=== PATIENT | female | born 1955 | race Caucasian/White ===

== ENCOUNTER 2019-09-21 10:53 | Observation (INO) | payer OTHER, SELFPAY ==
[2019-09-21] VITALS (16 sets, daily range): BP systolic 95–233; BP diastolic 63–129; PULSE 42–52; RESP 8–27; TEMP 36.2–36.9; O2SAT 94–98; BMI 32.7
--- NOTE | 2019-09-21 11:09 | DI.RAD.S_ITS ---
PROCEDURE: XR CHEST 1V INDICATIONS: Possible stroke TECHNIQUE: One view of the chest was acquired. COMPARISON: None. FINDINGS: Surgical changes and devices: None. Lungs and pleura: Lungs are clear. No pleural effusions or pneumothorax. Mediastinum: Mediastinal contours appear normal. Heart size is normal. Bones and chest wall: No suspicious bony lesions. Overlying soft tissues appear unremarkable. IMPRESSION: No acute process. Dictated by: Dawn Pack M.D. on 09/21/2019 at 11:32 Approved by: Dawn Pack M.D. on 09/21/2019 at 11:32
--- NOTE | 2019-09-21 11:09 | DI.CT.S_ITS ---
PROCEDURE: CT HEAD/BRAIN WO CON INDICATIONS: stroke symptoms TECHNIQUE: Noncontrast 4.5 mm thick angled axial sections acquired from the foramen magnum to the vertex, with coronal and sagittal reformats. For radiation dose reduction, the following was used: automated exposure control, adjustment of mA and/or kV according to patient size. COMPARISON: None. FINDINGS: Image quality: Excellent. CSF spaces: Basal cisterns are patent. No extra-axial fluid collections. The ventricles are symmetric in size and shape. Brain: No intracranial bleeds or masses. There is cerebral volume loss for age, with resultant ventricular and sulcal prominence. There are periventricular and deep white matter chronic small vessel ischemic changes. There is intracranial internal carotid artery atherosclerosis. Skull and face: Calvarium and visualized facial bones appear intact, without suspicious lesions. Sinuses: Visualized sinuses and mastoids are clear. IMPRESSION: No acute intracranial disease process. Dictated by: Geraldine Tan MD, PhD on 09/21/2019 at 11:30 Approved by: Geraldine Tan MD, PhD on 09/21/2019 at 11:32
[2019-09-21 11:15] LABS: Add Manual Diff / Slide Review NO; Basophils Absolute Auto 100 /uL (0-100); Basophils Percent Auto 1.4 % (0-2); Eosinophils Absolute Auto 200 /uL (0-450); Eosinophils Percent Auto 4.1 % (2-4); Hematocrit 39.9 % (36-46); Hemoglobin 13.8 g/dL (12.0-16.0); Lymphocytes Absolute Auto 1200 /uL (1100-4500); Lymphocytes Percent Auto 27.7 % (25-40); Mean Corpuscular HGB Conc 34.7 % (30-36); Mean Corpuscular Hemoglobin 31.5 PG (26-34); Mean Corpuscular Volume 90.8 fL (80-100); Monocytes Absolute Auto 300 /uL (0-900); Monocytes Percent Auto 6.6 % (3-14); Neutrophils Absolute Auto 2700 /uL (1500-7000); Neutrophils Percent Auto 60.2 % (50-75); Platelet Count 205 X10^3/uL (150-400); Red Blood Cell Count 4.39 X10^6/uL (4.0-5.2); Red Cell Distribution Width 12.8 % (11.6-14.8); White Blood Cell Count 4.5 X10^3/uL (4.5-11.0)
--- NOTE | 2019-09-21 11:16 | ED.NEUROSD ---
HPI - Neuro Symptoms/Deficit General Chief Complaint: Neuro Symptoms/Deficit Stated Complaint: off balance/ slurred speech Time Seen by Provider: 09/21/19 11:07 Source: patient Mode of arrival: Wheelchair History of Present Illness HPI Narrative: CC: Slurring of her speech. HPI: The patient is a 64-year-old female who has a history of hypertension. She denies a history of diabetes mellitus previous stroke congestive heart failure myocardial infarction. She was last known to be well yesterday at approximately 2:00 p.m. when she develops slurred speech. The slurred speech persisted throughout the non evening and this morning that she came into the emergency department to be evaluated at this time. She denies any headache. She has had no fall or injury. She has had no change in vision or loss of vision. She denies any history of atrial fibrillation or being on an anticoagulant. She has had no valvular heart disease and no heart murmur. She states that yesterday her legs would not do what she wanted them. The symptoms were bilateral. There was no localizing symptoms to her arms or her legs will right or left side. The patient states that she periodically smokes cigarettes socially does not use marijuana but drinks alcohol. She denies any chest pain cough shortness of breath but has had mild irregular rapid heart rate in the form of palpitations without dizziness. She has had mild nausea but no vomiting diarrhea or abdominal pain. She has had no urinary symptoms. On arrival she had a slow heart rate and had systolic blood pressure in the 230 range. On Anticoagulants: No Related Data Home Medications Medication Instructions Recorded Confirmed CA PANTOTHENATE/FOLIC ACID/VIT 1 tab PO Q DAY #0 11/28/11 (MULTIVITAMIN) [TRI-IRON WITH FOLATE] Q DAY #0 11/28/11 metoprolol succinate 100 mg PO BID 09/21/19 09/21/19 Allergies Allergy/AdvReac Type Severity Reaction Status Date / Time No Known Drug Allergies Allergy Verified 09/21/19 16:36 Review of Systems Review of Systems Narrative: Review of systems were all negative except for those mentioned in the history of present illness. Patient History Medical History (Updated 09/21/19 @ 15:54 by Dakotah Corrales DO) Hypertension (Acute) Surgical History History of thyroidectomy History of tonsillectomy Family History Mother Post-menopausal Breast cancer Sister Melanoma Social History household members: other Smoking Status: Never smoker alcohol intake: current Smoking Status: Never smoker alcohol intake frequency: a few times a month Substance Use Type: does not use Exam Narrative Exam Narrative: PHYSICAL EXAM: CONSTITUTIONAL: Awake, Alert, Oriented, Coherent, Cooperative in NAD. Does not appear toxic or ill. The patient is keenly awake and alert answering questions. The patient has a mild slurred speech that she complains of. HEAD: AT/NC EENT: PERRL, FROM of eyes, no discharge, no nystagmus, visual dover are intact bilaterally NOSE:No epistaxis or nasal drainage MOUTH:Oral mucosa is moist and pink, posterior pharynx is without erythema or exudate. The patient has no asymmetry of her smile she is able to are puff of her cheeks symmetrically she has full range of motion of her tongue and she is able to wrinkle both sides of her forehead. NECK: Supple, no obvious JVD, Trachea is midline without stridor, no palpable LN. THORAX: No deformity, retractions, chest wall tenderness. LUNGS: Clear, symmetrical breath sounds without respiratory distress. HEART: Normal heart tones, regular rhythm and rate without murmur. ABDOMEN: Soft, non-tender, no guarding, rebound, rigidity or palpable mass. EXTREMITIES: No edema, deformity, tenderness or cyanosis. SKIN: No rash, bruising, petechiae or purpura. NEURO: Awake, alert, oriented, conversive, cranial nerves II-XII are symmetrical , moves all 4 extremities the patient has no drift of her arms or her legs. She has symmetrical sensation and symmetrical strength. MENTAL HEALTH: Does not appear anxious or depressed. Initial Vital Signs Initial Vital Signs: Vital Signs Temperature 98.2 F 09/21/19 11:03 Pulse Rate 45 L 09/21/19 11:03 Respiratory Rate 17 09/21/19 11:03 Blood Pressure 233/93 H 09/21/19 11:03 Pulse Oximetry 98 09/21/19 11:03 Scores NIH Stroke Scale Level of Conciousness: Alert, keenly responsive Ask month/age: Answers both questions correctly. Open/close eyes, close hand: Performs both tasks correctly Best gaze horizontal: Normal Visual dover: No visual loss Facial palsy: Normal symetrical movement Left arm drift: No drift for full 10 sec Right arm drift: No drift for full 10 sec Left leg drift: No drift for full 10 sec Right leg drift: No drift for full 10 sec Limb ataxia: Absent Sensory on face/arms/legs: Normal, no sensory loss Best language: Mild to moderate, slurs some words Dysarthria: Mild to mod,some slurring Extinction or inattention: No abnormality Total NIH Stroke scale score: 2 Course Course Course Narrative: 1237: Blood pressure has improved to 170 7/76 after the Apresoline. The patient's initial CT scan is negative for any acute pathology or evidence of a stroke. A CT angiogram has been ordered on the patient. The patient was reported to have been last known well to be 2:00 p.m. yesterday. The patient was thought to be having a hypertensive urgency but was being evaluated for possible stroke. The the CT a the patient's head and neck revealed: IMPRESSION: 1. No acute intracranial disease process. 2. No large vessel occlusion, hemodynamically significant vascular stenosis, vascular dissection or aneurysm. Any quantitative measurements of stenosis were performed using NASCET criteria. Dictated by: Geraldine Tan MD, PhD on 09/21/2019 at 14:05 Approved by: Geraldine Tan MD, PhD on 09/21/2019 at 14:15 The patient was admitted observation status to for further evaluation. Orders Ordered: ED Orders 09/21/19 12:36 CT angio head and neck Stat 09/21/19 13:34 MR stroke Urgent Acetaminophen (Tylenol) 650 mg PO Q6HR PRN PRN Reason: Fever/Mild Pain (1-3) Aspirin (Aspirin Ec) 81 mg PO DAILY [facility] Clopidogrel Bisulfate (Plavix) 75 mg PO DAILY [facility] Enoxaparin Sodium (Lovenox) 40 mg SUBCUT DAILY [facility] Metoprolol Succinate (Toprol Xl) 200 mg PO DAILY [facility]ANDA Metoprolol Succinate (Toprol Xl) 100 mg PO 2100 AMANDA Discontinued Medications Aspirin (Aspirin) 325 mg PO NOW ONE Stop: 09/21/19 15:41 Last Admin: 09/21/19 16:25 Dose: 325 mg Documented by: SPIKE Clopidogrel Bisulfate (Plavix) 300 mg PO NOW ONE Stop: 09/21/19 15:42 Last Admin: 09/21/19 16:25 Dose: 300 mg Documented by: SPIKE Hydralazine HCl (Apresoline) 10 mg IV NOW ONE Stop: 09/21/19 11:09 Last Admin: 09/21/19 11:27 Dose: 10 mg Documented by: BOO Lisinopril (Zestril) 10 mg PO NOW ONE Stop: 09/21/19 15:44 Last Admin: 09/21/19 19:28 Dose: Not Given Documented by: SPIKE Vital Signs Vital signs: Vital Signs - 8 hr 09/21/19 12:45 09/21/19 13:00 Pulse Rate 42 L 44 L Respiratory Rate 14 19 Blood Pressure 184/78 H 167/77 H Pulse Oximetry 97 97 MDM - Neuro Symptoms/Deficit Lab Data Result diagrams: 09/21/19 11:07 09/21/19 11:07 Labs: Lab Results 09/21/19 09/21/19 09/21/19 Range/Units 11:07 11:07 11:07 WBC 4.5 (4.5-11.0) X10^3/uL RBC 4.39 (4.0-5.2) X10^6/uL Hgb 13.8 (12.0-16.0) g/dL Hct 39.9 (36-46) % MCV 90.8 (80-100) fL MCH 31.5 (26-34) PG MCHC 34.7 (30-36) % RDW 12.8 (11.6-14.8) % Plt Count 205 (150-400) X10^3/uL Neut % (Auto) 60.2 (50-75) % Lymph % (Auto) 27.7 (25-40) % [place] % (Auto) 6.6 (3-14) % Eos % (Auto) 4.1 H (2-4) % Baso % (Auto) 1.4 (0-2) % Neut # (Auto) 2700 (4859-7794) /uL Lymph # (Auto) 1200 (3066-5719) /uL [place] # (Auto) 300 (0-900) /uL Eos # (Auto) 200 (0-450) /uL Baso # (Auto) 100 (0-100) /uL ESR (0-20) MM/HR PT 12.0 (10.1-12.7) SECONDS INR 1.0 (0.9-1.3) APTT 36 (26.4-36.2) SECONDS Sodium 140 (137-145) mmol/L Potassium 3.9 (3.4-5.1) mmol/L Chloride 106 (98-107) mmol/L Carbon Dioxide 27 (22-32) mmol/L BUN 14 (7-17) mg/dL Creatinine 0.60 (0.52-1.04) mg/dL Estimated GFR > 60.0 (>60) mL/min BUN/Creatinine Ratio 23.3 H (6-22) Glucose 134 H (80-110) mg/dL Calcium 9.7 (8.4-10.2) mg/dL Total Bilirubin 0.7 (0.2-1.3) mg/dL AST 24 (14-36) IU/L ALT 20 (<35) IU/L Alkaline Phosphatase 69 (38-126) U/L Total Creatine Kinase 45 (30-135) U/L CK-MB (CK-2) TNP CK-MB (CK-2) Rel Index TNP Troponin I < 0.012 (0.01-0.034) ng/mL Total Protein 7.5 (6.3-8.2) g/dL Albumin 4.6 (3.5-5.0) g/dL Globulin 2.9 (1.7-4.1) g/dL Albumin/Globulin Ratio 1.6 (1.0-2.8) 09/21/19 Range/Units 11:07 WBC (4.5-11.0) X10^3/uL RBC (4.0-5.2) X10^6/uL Hgb (12.0-16.0) g/dL Hct (36-46) % MCV (80-100) fL MCH (26-34) PG MCHC (30-36) % RDW (11.6-14.8) % Plt Count (150-400) X10^3/uL Neut % (Auto) (50-75) % Lymph % (Auto) (25-40) % [place] % (Auto) (3-14) % Eos % (Auto) (2-4) % Baso % (Auto) (0-2) % Neut # (Auto) (9234-0992) /uL Lymph # (Auto) (8422-3235) /uL [place] # (Auto) (0-900) /uL Eos # (Auto) (0-450) /uL Baso # (Auto) (0-100) /uL ESR 13 (0-20) MM/HR PT (10.1-12.7) SECONDS INR (0.9-1.3) APTT (26.4-36.2) SECONDS Sodium (137-145) mmol/L Potassium (3.4-5.1) mmol/L Chloride (98-107) mmol/L Carbon Dioxide (22-32) mmol/L BUN (7-17) mg/dL Creatinine (0.52-1.04) mg/dL Estimated GFR (>60) mL/min BUN/Creatinine Ratio (6-22) Glucose (80-110) mg/dL Calcium (8.4-10.2) mg/dL Total Bilirubin (0.2-1.3) mg/dL AST (14-36) IU/L ALT (<35) IU/L Alkaline Phosphatase (38-126) U/L Total Creatine Kinase (30-135) U/L CK-MB (CK-2) CK-MB (CK-2) Rel Index Troponin I (0.01-0.034) ng/mL Total Protein (6.3-8.2) g/dL Albumin (3.5-5.0) g/dL Globulin (1.7-4.1) g/dL Albumin/Globulin Ratio (1.0-2.8) Point of Care Testing Glucose POC 137 Urine Dip Bedside Urine Glucose Negative Bedside Urine Bilirubin - Negative Bedside Urine Ketone - Negative Urine Specific [place] 1.01 Bedside Urine Occult Blood - Negative Bedside Urine pH 7 Bedside Urine Protein - Negative Bedside Urine Urobilinogen - Negative Bedside Urine Nitrite - Negative Bedside Urine Leukocytes - Negative Esterase Discharge Plan Departure Patient Disposition: Admitted as Observation Clinical Impression: Slurred speech, Bradycardia, Hypertensive urgency Hypertension Qualifiers: Hypertension type: essential hypertension Qualified Code(s): I10 - Essential (primary) hypertension Discharge Date/Time: 09/21/19 13:56 Referrals: Xiomara Guzman [Primary Care Provider] - Admit Date/Time: 09/21/19 13:37 Admit Provider: Dakotah Corrales
[2019-09-21 11:24] LABS: PTT Partial Thromboplastin Tim 36 SECONDS (26.4-36.2)
[2019-09-21] MEDS: HYDRALAZINE 20 MG/ML VIAL 10 MG IV (11:27)
--- NOTE | 2019-09-21 11:27 | PC.NURSE ---
Son Chaudhari at bedside.
[2019-09-21 11:29] LABS: Alanine Aminotransferase 20 IU/L (<35); Albumin 4.6 g/dL (3.5-5.0); Albumin Globulin Ratio 1.6 (1.0-2.8); Alkaline Phosphatase 69 U/L (38-126); Aspartate Aminotransferase 24 IU/L (14-36); BUN Creatinine Ratio 23.3 (6-22); Bilirubin Total 0.7 mg/dL (0.2-1.3); Blood Urea Nitrogen 14 mg/dL (7-17); Calcium 9.7 mg/dL (8.4-10.2); Carbon Dioxide 27 mmol/L (22-32); Chloride 106 mmol/L (98-107); Creatine Kinase 45 U/L (30-135); Estimated Glomerular Filt Rate > 60.0 mL/min (>60); Globulin 2.9 g/dL (1.7-4.1); Glucose 134 mg/dL (80-110); HEMOLYSIS < 15 (0-50); Potassium 3.9 mmol/L (3.4-5.1); Sodium 140 mmol/L (137-145); Total Protein 7.5 g/dL (6.3-8.2)
[2019-09-21 11:40] LABS: Troponin I < 0.012 ng/mL (0.01-0.034)
[2019-09-21 11:53] LABS: Erythrocyte Sedimentation Rate 13 MM/HR (0-20)
--- NOTE | 2019-09-21 12:36 | DI.CT.S_ITS ---
PROCEDURE: CT ANGIO HEAD AND NECK INDICATIONS: evaluation of a stroke and slurred speech TECHNIQUE: Pre-contrast 4.5 mm thick sections acquired from the foramen magnum to the vertex. After the administration of intravenous contrast, 1 mm thick sections acquired from the aortic arch through the [place]. Post-contrast 4.5 mm thick sections then re-acquired from the foramen magnum to the vertex. 3-dimensional fnzbqhe-xfzxuqyxt-sbtityvlzp (MIP) and/or volume rendering reformats were acquired of the central intracranial vasculature and neck separately. COMPARISON: [facility], CT, CT HEAD/BRAIN WO CON, 09/21/2019, 11:05. FINDINGS: Image quality: Excellent. BRAIN: CSF spaces: Ventricles are normal in size and shape. Basal cisterns are patent. No extra-axial fluid collections. Brain: No midline shift. No intracranial bleeds or masses. Koch-white matter interface appears intact. Skull and face: Calvarium and facial bones appear intact, without suspicious lesions. Orbits appear normal. Sinuses: Mucosal thickening noted in the maxillary sinuses. The mastoids are clear. HEAD CT ANGIOGRAPHY: Anterior circulation: Intracranial internal carotid arteries are normal in flow. Calcified atherosclerotic plaque noted in the cavernous and clinoid segments of the internal carotid arteries bilaterally which causes mild stenosis. The flow within the paired anterior cerebral arteries is normal and symmetric. The flow within the middle cerebral arteries is normal and symmetric. The anterior communicating artery is seen. No aneurysms are seen. Posterior circulation: Visualized portions of the vertebral arteries demonstrate normal caliber, and join to form a normal appearing basilar artery. Flow within the posterior cerebral arteries is normal and symmetric. No aneurysms are seen. NECK CT ANGIOGRAPHY: Carotid system: The great vessels demonstrate a conventional anatomy as they arise from the aortic arch. The origins of the common carotid arteries appear patent. The common carotid arteries demonstrate normal caliber and courses. Right internal carotid artery is fully patent. Soft and calcified atherosclerotic plaque noted in the origin of the left internal carotid artery which causes less than 50% stenosis of the vessel. Posterior circulation: The origins of the vertebral arteries both appear widely patent. 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 Scattered atherosclerotic irregularity noted in the V1 segment of the right vertebral artery which causes mild multifocal stenosis. The more superior extracranial portions of both vertebral arteries also demonstrate normal courses and calibers. They join to form a normal appearing basilar artery. Soft tissues: Visualized neck soft tissues demonstrate no suspicious abnormalities. Left lobe of the thyroid gland is enlarged with heterogeneous enhancement concerning for multinodular goiter. Right lobe of the thyroid gland is absent. Bones: No suspicious bony lesions. Spine degenerative disc disease and facet arthropathy. Visualized cervical spine appears normally aligned. IMPRESSION: 1. No acute intracranial disease process. 2. No large vessel occlusion, hemodynamically significant vascular stenosis, vascular dissection or aneurysm. Any quantitative measurements of stenosis were performed using NASCET criteria. Dictated by: Geraldine Tan MD, PhD on 09/21/2019 at 14:05 Approved by: Geraldine Tan MD, PhD on 09/21/2019 at 14:15
--- NOTE | 2019-09-21 13:34 | DI.MRI.S_ITS ---
PROCEDURE: MR STROKE Pre- and post-contrast brain MRI, non-contrast brain MR angiogram, pre- and postcontrast neck MR angiogram INDICATIONS: slurred speech, eval for Stroke TECHNIQUE: Brain: Noncontrast axial T1 spin echo, axial T2 fast spin echo, sagittal and axial FLAIR, coronal T2 fast spin echo, axial gradient echo, axial diffusion and ADC through the brain. After the administration of contrast, axial 3D VIBE of the cranial vasculature and brain. Brain MRA: Non-contrast 3-D time of flight MR angiogram, with multiple dqibeha-qbmxmptvn-obbltgnute (MIP) reformats performed. Neck MRA: Axial and sagittal TruFISP through the neck. Coronal dynamic MR angiogram during administration of contrast in the arterial and venous phases, with 3-dimenstional nxndfsz-pscwvmoin-viszxcmdzd (MIP) reformats constructed from subtraction images. COMPARISON: [facility], CT, CT ANGIO HEAD AND NECK, 09/21/2019, 13:26. [facility], CT, CT HEAD/BRAIN WO CON, 09/21/2019, 11:05. FINDINGS: Image quality: Excellent. BRAIN: CSF spaces: Ventricles are normal in size and shape. Basal cisterns are patent. No extra-axial fluid collections. Brain: No intracranial bleeds or mass effects. Koch-white matter interface is normal. Diffusion weighted images show no acute ischemic insults. Brain parenchymal volume loss is seen. Chronic small vessel ischemic change is seen. Brainstem appears normal. Normal intravascular flow voids are present. No abnormal intracranial enhancement. Skull and face: Calvarial marrow signal is normal. Orbits appear normal. Sinuses: Sinuses and mastoids demonstrate no significant abnormality. The ostiomeatal complexes are constitutionally narrowed. BRAIN MR ANGIOGRAM: Anterior circulation: Intracranial internal carotid arteries are normal in size and enhancement. There is a diminutive right A1 segment, with a corresponding robust left A1 segment. This is considered to be a normal developmental variant of the [place] of [place], of typically no clinical consequence. The flow within the paired anterior cerebral arteries is otherwise normal and symmetric. The flow within the middle cerebral arteries is normal and symmetric. The anterior communicating artery is seen. No stenoses, occlusions, or aneurysms. Posterior circulation: The left vertebral artery is dominant to the right. Areas of approximately 50% narrowing can be seen involving the right V4 segment. There is a normal-appearing basilar artery. The flow within the posterior cerebral arteries is normal and symmetric. No stenoses, occlusions, or aneurysms. NECK MR ANGIOGRAM: Carotids: Great vessels demonstrate a conventional anatomy as they arise from the aortic arch. The origins of the common carotid arteries appear patent. The calibers and courses of both common carotid arteries are normal. The bifurcation regions demonstrate atherosclerotic irregularity. There is approximately 50% narrowing seen involving the left proximal internal carotid artery. No hemodynamically significant stenosis can be seen on the right. Posterior circulation: The origins of the vertebral arteries appear patent. More superior portions of both vertebral arteries demonstrate normal course and caliber, and join to form a normal appearing basilar artery. Miscellaneous: Subclavian arteries appear patent. Pre-contrast images through the neck show no soft tissue abnormalities. IMPRESSION: BRAIN MRI: No findings of acute or subacute infarction can be seen. Note is made of age-appropriate brain parenchymal volume loss and chronic small vessel ischemic changes. No masses or abnormal enhancement can be seen. BRAIN MR ANGIOGRAM: Areas of proximally 50% narrowing can be seen involving the right V4 segment. NECK MR ANGIOGRAM: There is approximately 50% narrowing seen involving the left proximal internal carotid artery. Dictated by: Too Villalobos M.D. on 09/21/2019 at 14:24 Approved by: Too Villalobos M.D. on 09/21/2019 at 14:30
[2019-09-21 15:08] LABS: COVID19 -Nasal RAPID Negative (Negative)
--- NOTE | 2019-09-21 15:39 | P.HP_ITS ---
History of Present Illness History of Present Illness Date Patient Seen: 09/21/19 Time Patient Seen: 15:39 Chief complaint: off balance/ slurred speech Narrative: Christy Jimenez is a 64 year old female with PMH of HTN who presented to the emergency room with onset of slurred speech and imbalance starting at approximately 2 pm yesterday. She states that yesterday at approximately 2:00 p.m. she noticed that she was having difficulty speaking, problems with word f indings as well as some slurring of her words. She also noticed that she was having a hard time walking. She denies any focal weakness or numbness, but stated that she did have some trouble with coordination and writing. She did not improved this morning this is when she decided to come to the emergency room. She also notes that her family thinks her speech pattern has changed. She thinks she may have been having palpitations yesterday, but cannot completely recall. She denies any chest pain, shortness of breath, headache, vision changes, abdominal pain, nausea, vomiting, diarrhea, lower extremity edema, orthopnea. In the emergency room, patient was initially hypertensive with a blood pressure of 233/93, she was also mildly bradycardic in the 40s. EKG showed a bradycardia with primary block without evidence of active ischemia. Laboratory findings were unremarkable with a negative troponin, and negative COVID-[address] was unremarkable. Head and neck CTA was also unremarkable. Before arrival to the floor MRI was ordered which did not show any evidence of active ischemia, but did show approximately 50% stenosis of her left internal carotid artery. Patient was admitted under observation status for likely TIA. Patient History Medical History (Updated 09/21/19 @ 15:54 by Dakotah Corrales DO) Hypertension (Acute) Surgical History History of thyroidectomy History of tonsillectomy Family & Social History Family History Mother Post-menopausal Breast cancer Sister Melanoma Social History: household members other Prior Living Arrangements House Safety & Behavioral: Feels Safe in Current Yes Environment Been Physically Hurt or No Threatened By a Person Suicidal Ideation Description None Suicide Plan Description No Plan Tobacco & Substance use: Smoking Status Never smoker alcohol intake current alcohol intake frequency a few times a month Substance Use Type does not use Meds Home Medications and Allergies Home Medications Medication Instructions Recorded Confirmed Type CA PANTOTHENATE/FOLIC ACID/VIT 1 tab PO Q DAY #0 11/28/11 History (MULTIVITAMIN) [TRI-IRON WITH FOLATE] Q DAY #0 11/28/11 History metoprolol succinate 100 mg PO BID 09/21/19 09/21/19 History Review of Systems Review of Systems Narrative: All other systems reviewed with the patient and are negative unless otherwise stated. Exam Vital Signs (past 8 hours): - 09/21/19 11:03 09/21/19 11:44 09/21/19 12:01 Temperature 98.2 F Pulse Rate 45 L 48 L 52 L Respiratory Rate 17 8 L 27 H Blood Pressure 233/93 H 195/79 H 177/76 H Pulse Oximetry 98 97 98 09/21/19 12:30 09/21/19 12:45 09/21/19 13:00 Temperature Pulse Rate 48 L 42 L 44 L Respiratory Rate 26 H 14 19 Blood Pressure 184/129 H 184/78 H 167/77 H Pulse Oximetry 98 97 97 09/21/19 14:10 Temperature 97.8 F Pulse Rate 50 L Respiratory Rate 18 Blood Pressure 185/78 H Pulse Oximetry 98 Oxygen Delivery Method Room Air Oxygen Flow Rate 0 Narrative Exam Narrative: GENERAL APPEARANCE: Well developed, well nourished, in no acute distress. SKIN: Inspection of the skin reveals no rashes, ulcerations or petechiae. HEENT: Normocephalic atraumatic, extraocular muscles are intact, oropharynx is clear and mucous membranes are moist, neck is supple without adenopathy NECK: Supple and symmetric. There was no thyroid enlargement, and no tenderness, or masses were felt. CHEST: Normal AP diameter and normal contour without any kyphoscoliosis. LUNGS: Auscultation of the lungs revealed no wheezes, rhonchi, or rales. CARDIOVASCULAR: There was a regular rate and rhythm with a 2/6 systolic murmur. Peripheral pulses were 2+ and symmetric. ABDOMEN: Soft and nontender with normal bowel sounds. No ascites was noted. MUSCULOSKELETAL: There was no tenderness or effusions noted. Muscle strength and tone were normal. EXTREMITIES: No cyanosis, clubbing or edema. NEUROLOGIC: Alert and oriented x 3. Normal affect. NIH stroke scale is documented below. There is very minor facial asymmetry on the right that resolves with smiling, unclear if this is chronic or acute. I notice no difficulties with speech on my examination. Objective ECG Impression: Bradycardia with primary block, rate 44. No evidence of active ischemia. Imaging Chest x-ray: Radiologist's impression: No acute process. MRI - head: Radiologist's impression: IMPRESSION: BRAIN MRI: No findings of acute or subacute infarction can be seen. Note is made of age-appropriate brain parenchymal volume loss and chronic small vessel ischemic changes. No masses or abnormal enhancement can be seen. BRAIN MR ANGIOGRAM: Areas of proximally 50% narrowing can be seen involving the right V4 segment. NECK MR ANGIOGRAM: There is approximately 50% narrowing seen involving the left proximal internal carotid artery. CT scan - head: Radiologist's impression: No acute process. Labs Result Diagrams: 09/21/19 11:07 09/21/19 11:07 Labs: Laboratory Results - last 24 hr 09/21/19 09/21/19 09/21/19 11:07 11:07 11:07 WBC 4.5 RBC 4.39 Hgb 13.8 Hct 39.9 MCV 90.8 MCH 31.5 MCHC 34.7 RDW 12.8 Plt Count 205 Neut % (Auto) 60.2 Lymph % (Auto) 27.7 [place] % (Auto) 6.6 Eos % (Auto) 4.1 H Baso % (Auto) 1.4 Neut # (Auto) 2700 Lymph # (Auto) 1200 [place] # (Auto) 300 Eos # (Auto) 200 Baso # (Auto) 100 ESR PT 12.0 INR 1.0 APTT 36 Sodium 140 Potassium 3.9 Chloride 106 Carbon Dioxide 27 BUN 14 Creatinine 0.60 Estimated GFR > 60.0 BUN/Creatinine Ratio 23.3 H Glucose 134 H Calcium 9.7 Total Bilirubin 0.7 AST 24 ALT 20 Alkaline Phosphatase 69 Total Creatine Kinase 45 CK-MB (CK-2) TNP CK-MB (CK-2) Rel Index TNP Troponin I < 0.012 Total Protein 7.5 Albumin 4.6 Globulin 2.9 Albumin/Globulin Ratio 1.6 COVID-19 PCR 09/21/19 09/21/19 11:07 14:00 WBC RBC Hgb Hct MCV MCH MCHC RDW Plt Count Neut % (Auto) Lymph % (Auto) [place] % (Auto) Eos % (Auto) Baso % (Auto) Neut # (Auto) Lymph # (Auto) [place] # (Auto) Eos # (Auto) Baso # (Auto) ESR 13 PT INR APTT Sodium Potassium Chloride Carbon Dioxide BUN Creatinine Estimated GFR BUN/Creatinine Ratio Glucose Calcium Total Bilirubin AST ALT Alkaline Phosphatase Total Creatine Kinase CK-MB (CK-2) CK-MB (CK-2) Rel Index Troponin I Total Protein Albumin Globulin Albumin/Globulin Ratio COVID-19 PCR Negative Assessment & Plan Assessment & Plan narrative: Christy Jimenez is a 64 year old female with PMH of HTN who presented to the emergency room with onset of slurred speech and imbalance starting at approximately 2 pm yesterday. She is admitted under observation status for likely TIA and hypertensive urgency. 1. Slurred speech, acute, reportedly present on admission -patient still continues to report difficulties with speech which are not her baseline. Family his also told her that her speech is not quite at baseline. I do not note any difficulties on my exam other than a few times she had some difficulty finding a complex word and possibly a very minor R sided facial asymmetry which may be chronic. She has no focal weakness or numbness on exam. -head CT, head and neck CT angiogram, an MR stroke were all negative for active ischemia or bleeding. MR stroke did note a mild stenosis of her left internal carotid at approximately 50%. Will further order TTE. -will continue telemetry, EKG with bradycardia with primary block, likely due to her home beta jack. -differential includes TIA or possibly hypertensive emergency given systolic blood pressure on admission of 233. MR stroke was negative for active ischemia as noted above. Patient was given 10 mg of hydralazine in the emergency room, she took her usual dose of metoprolol today which is 200 mg in the morning and 100 mg at night. Will continue this regimen and continue to monitor her blood pressures making necessary adjustments. -PT/OT/speech evaluations -risk stratify with TSH, A1c, and fasting lipid panel -will treat as a TIA with aspirin and Plavix. Given her ABCD2 score of 5 she will benefit from dual antiplatelet therapy for 21 days. Will likely need statin therapy as well pending lipid panel. 2. TIA, acute, present on admission -treatment as noted above with aspirin and Plavix -PT/OT/speech as noted above 3. Hypertensive urgency, acute, present on admission -patient improved with 10 mg of IV hydralazine and now has blood pressures in the 130s upon arrival to the floor. This may be in the setting of TIA or may be the primary cause of her symptoms, not completely clear. Will continue her home regimen at 200 mg of metoprolol in the morning, and 100 mg at night and continue to monitor and make additional changes. Will likely need to reduce her home dose of metoprolol given significant bradycardia in the 40s with primary block. Will add holding parameters to hold metoprolol if her heart rate is less than 50. Code: Full, surrogate decision maker is her son DVT: Ivynox daily Dispo: Admitted under observation status as her stay is not expected to exceed 2 midnights. COVID-19 COVID-19 status: Negative Scores ABCD2 Age >= 60 years: yes Initial BP. Either SBP >= 140 or DBP >= 90.: yes Clinical features of the TIA: speech disturbance without weakness Duration of symptoms: >= 60 minutes History of diabetes: no ABCD2 Score: 5 NIHSS Level of Conciousness: Alert, keenly responsive Ask month/age: Answers both questions correctly. Open/close eyes, close hand: Performs both tasks correctly Best gaze horizontal: Normal Visual dover: No visual loss Facial palsy: Minor paralysis, flattened nasolabial fold, asymmetry on smiling (very minor, unclear if chronic) Left arm drift: No drift for full 10 sec Right arm drift: No drift for full 10 sec Left leg drift: No drift for full 5 sec Right leg drift: No drift for full 5 sec Limb ataxia: Absent Sensory on face/arms/legs: Normal, no sensory loss Best language: No aphasia, normal Dysarthria: Normal Extinction or inattention: No abnormality Total NIH Stroke scale score: 1 Quality VTE Deep Vein Thrombosis/Pulmonary Embolism Present on Admission: No
[2019-09-21] MEDS: ASPIRIN 325 MG TABLET PO (16:25)
[2019-09-21] MEDS: CLOPIDOGREL 75 MG TABLET 300 MG PO (16:25)
--- NOTE | 2019-09-21 23:43 | PC.NURSE ---
LUIS MANUEL Aranda, notified of patient HR decreasing to the 30's with sleep/rest. Reviewed ordered medications, notified of HS dose of Metoprolol XL not given.
[2019-09-22] VITALS (7 sets, daily range): BP systolic 136–171; BP diastolic 61–76; PULSE 40–54; RESP 18; TEMP 36.4–36.6; O2SAT 97–98
[2019-09-22 05:22] LABS: Add Manual Diff / Slide Review NO; Basophils Absolute Auto 0 /uL (0-100); Basophils Percent Auto 0.9 % (0-2); Eosinophils Absolute Auto 200 /uL (0-450); Eosinophils Percent Auto 4.8 % (2-4); Hematocrit 40.2 % (36-46); Hemoglobin 14.1 g/dL (12.0-16.0); Lymphocytes Absolute Auto 1200 /uL (1100-4500); Lymphocytes Percent Auto 26.7 % (25-40); Mean Corpuscular HGB Conc 35.1 % (30-36); Mean Corpuscular Volume 91.2 fL (80-100); Monocytes Absolute Auto 400 /uL (0-900); Monocytes Percent Auto 9.1 % (3-14); Neutrophils Absolute Auto 2700 /uL (1500-7000); Neutrophils Percent Auto 58.5 % (50-75); Platelet Count 183 X10^3/uL (150-400); Red Cell Distribution Width 13.2 % (11.6-14.8); White Blood Cell Count 4.7 X10^3/uL (4.5-11.0)
[2019-09-22 05:26] LABS: Alanine Aminotransferase 18 IU/L (<35); Albumin 4.3 g/dL (3.5-5.0); Albumin Globulin Ratio 1.6 (1.0-2.8); Alkaline Phosphatase 68 U/L (38-126); Aspartate Aminotransferase 22 IU/L (14-36); BUN Creatinine Ratio 25.4 (6-22); Bilirubin Total 0.9 mg/dL (0.2-1.3); Bilirubin Unconjugated 0.9 mg/dL (0.0-1.1); Blood Urea Nitrogen 16 mg/dL (7-17); Calcium 9.4 mg/dL (8.4-10.2); Carbon Dioxide 27 mmol/L (22-32); Chloride 107 mmol/L (98-107); Cholesterol 229 mg/dL (140-199); Estimated Glomerular Filt Rate > 60.0 mL/min (>60); Globulin 2.7 g/dL (1.7-4.1); Glucose 99 mg/dL (80-110); HDL Cholesterol 45 mg/dL (40-60); HEMOLYSIS < 15 (0-50); LDL Cholesterol Calculated 153 mg/dL (<100); Magnesium 2.2 mg/dL (1.6-2.3); Potassium 4.8 mmol/L (3.4-5.1); Sodium 138 mmol/L (137-145); Triglycerides 156 mg/dL (35-150)
[2019-09-22 05:55] LABS: TSH w/ Reflex to FT4 3.47 uIU/mL (0.47-4.68)
[2019-09-22] MEDS: ASPIRIN EC 81 MG TABLET PO (08:41)
[2019-09-22] MEDS: CLOPIDOGREL 75 MG TABLET PO (08:41)
[2019-09-22] MEDS: ENOXAPARIN 40 MG/0.4 ML SYRINGE SUBCUT (08:41)
[2019-09-22] MEDS: lisinopriL 10 MG TABLET PO (08:41)
--- NOTE | 2019-09-22 08:47 | PC.NURSE ---
Addendum entered by Bertha Byrne R.N. 09/22/19 15:47: At 1530, called to make follow up appt for pt at her PCP. PCP office states pt's PCP is out of country until October 01. The other covering physicians in the office do no take pt's [employer] insurance. Therefore the follow up would be out of pocket as states by PCP office. PCP office gave suggestions to be seen at [facility] or [facility]. Per Dr. Corrales, pt needs to be seen ideally by end of week. Evening float RN Enedina aware. Addendum entered by Bertha Byrne R.N. 09/22/19 14:36: Spoke with Dr. Corrales around 1330 regarding pt's plan for discharge. F/U at PCP YAZAN, outpatient ECHO. Walker for home use per PT recommendations. Per Dr. corrales pt is ready for discharge today. Pt states her son's girlfriend will be able to pick her up for discharge, they will be coming from [place]. Addendum entered by Bertha Byrne R.N. 09/22/19 11:52: Per Dr. Corrales, no blood glucose finger stick checks to be continued. Original Note: Day Shift- Spoke with Dr. Corrales at 0835, Hold Metoprolol for HR below 50, okay to give Scheduled Lisinopril for 171/[address] Corrales also aware of 0730 Telemetry reading by ICU, RN of HR 37 with first degree AVB, SB, PAC's. Will continue to monitor. Pt A&OX4, states her slurred speech is about the same as yesterday. No other voiced concern. Pt updated with plan for needing ECHO, PT, OT, and Speech today. Bed Alarm on, call light within reach.
[2019-09-22] MEDS: SODIUM CHLORIDE 0.9% FLUSH 10 ML IV (10:27)
[2019-09-22] MEDS: METOPROLOL ER 50 MG TABLET PO (10:30)
--- NOTE | 2019-09-22 10:39 | OT.IP.EVAL ---
Past Medical History (Last Updated 09/21/19 @ 15:54 by Dakotah Corrales DO) Hypertension (Acute) Surgical History (Last Reviewed 09/21/19 @ 11:17 by Salas Blood MD) History of thyroidectomy History of tonsillectomy Occupational Therapy Inpatient Evaluation/Re-Eval M1 PT/OT-IP Prior Functional Status Start: 09/22/19 12:20 Freq: NEEDED Status: Active Protocol: Document 09/22/19 09:25 [facility] (Rec: 09/22/19 12:39 [facility] [id number]) Medical Review Prior Functional Status Medical History Reviewed Yes Communication WNL. No known baseline deficits Mobility and Gait Pt is an independent community ambulator. 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 Social History Household Members other Living Arrangements House Number of Floors (Floors) One Floor Number of Stairs To Enter/Railing? 1 SINCERE through the garage Home Environment Standard Height Toilet,Walk in Shower,Tub/Shower,Built-In Shower Seat Employment Status Fire Protection Specialist Employed Additional Social History Comment Pt lives in [place] and has a roommate who is active duty [employer]. 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 M2 OT-IP Current Condition Start: 09/22/19 12:20 Freq: Status: Active Protocol: Document 09/22/19 09:25 [facility] (Rec: 09/22/19 12:39 [facility] [id number]) Occupational Therapy Current Condition Current Condition Evaluation Date 09/22/19 Treatment Diagnosis TIA, decrease mobility Diagnosis Onset Date 09/21/19 M3 OT- IP Subjective and Pain Start: 09/22/19 12:20 Freq: Status: Active Protocol: Document 09/22/19 09:25 [facility] (Rec: 09/22/19 12:39 [facility] [id number]) OT- Subjective Occupational Therapy Visit Type Type Initial Evaluation Visit Start Time 09:25 Visit Stop Time 10:39 Total Visit Minutes 44 Notes Pt seen for a split session from [id number], and [id number]. Occupational Therapy Visit Comments Patient Comments Pt agreeable to do OT eval and wanting to get up to brush her teeth. Patient/Caregiver Goals To go home. OT Pain Assessment Pain When Pain Assessed At Rest Pain Present Pain Present Denied Pain M4 OT- IP ADL's Start: 09/22/19 12:20 Freq: Status: Active Protocol: Document 09/22/19 09:25 [facility] (Rec: 09/22/19 12:39 [facility] [id number]) OT [id number] Comments OT Self-Feeding Comments NOt at meal time. OT ADL-Grooming General Evaluation Grooming Ability Standby Assistance Comments OT Grooming Comments Set-up assist. OT ADL-Oral Care General Eval Oral Care Ability Independent OT ADL-Dressing General Eval Lower Body Dressing Ability Standby Assistance Comments OT Dressing Comments Pt able to alvarado/doff socks however favors use of left hand more than right hand for the task. Pt is right hand dominate. OT ADL-Toileting Comments OT Toileting Comments Pt not having to use the toilet. OT ADL-Bathing Comments OT Bathing Comments Pt going to get an ECHO, suggested best to have a shower chair at this time due to decreased balance. M5 OT- IP IADL's Start: 09/22/19 12:20 Freq: Status: Active Protocol: Document 09/22/19 09:25 [facility] (Rec: 09/22/19 12:39 [facility] [id number]) OT-Instrumental Activities of Daily Living Home Safety Awareness Awareness of Need for Assistance at Home Good Awareness Ability to Problem Solve Emergency Able to Problem Solve Situations Medication Management Medication Management No Deficits Identified Money Management Money Management No Deficits Identified Meal Preparation Meal Preparation Comments Pt may need assist due to her decreased balance. Intelligence Agent Intelligence Agent Comments Pt may need assist due to her decreased balance. Driving Driving Comments Suggested may be best to have someone drive her initially until she is feeling better. Pt appears to be thinking well however questionable how her reaction time would be for her right foot for braking a care due to weakness. M6 OT- IP Functional Cognition Start: 09/22/19 12:20 Freq: Status: Active Protocol: Document 09/22/19 09:25 [facility] (Rec: 09/22/19 12:39 [facility] [id number]) Cognitive Factors Limiting Selfcare Function Cognitive Ability Level of Alertness Alert Patient Orientation Name,Age,Birthday,Month,Date, Year,Day of Week,Place, Situation Attention Span Ability Capable of Focused Attention, Capable of Sustained Attention Ability to Follow Commands Able to Follow Multi-Step Commands Memory Description No Deficits Noted Safety Awareness No Deficits Noted Problem Solving Ability No deficits Noted Executive Function Ability No Deficits Noted Cognitive Comments Cognitive Assessment Comments No deficits noted, slight dysarthria noted. Pt scored 82 seconds on [place] Making Part B which implies normal but not perfect score. [place] Making B assesses pt's speed of processing, mental flexibility, visual attention, task switching, and executive thinking. OT- Vision and Hearing OT- Hearing Assessment OT- Hearing Assessment WFL OT- Vision Assessment Visual Acuity WFL Occular Pursuits WFL Visual Convergence WFL Visual Cyr WFL Diplopia Absent M7 OT- IP Mobility and Balance Start: 09/22/19 12:20 Freq: Status: Active Protocol: Document 09/22/19 09:25 [facility] (Rec: 09/22/19 12:39 [facility] [id number]) OT- Bed Mobility Assessment Rolling Type of Rolling Roll to Left Supine to Sit Supine to Sit Assist Standby Assistance Sit to Supine Sit to Supine Assist Standby Assistance Scooting Scooting to Edge of Bed Standby Assistance OT-Transfer Assessment Sit to and From Stand Sit to and from Stand Standby Assistance Transfers Transfer Ability Standby Assistance,Minimal Assistance Technique Transfer Destination Bed Transfer Technique Stand Step Pivot Devices Transfer Assistive Devices Bed Rail,Gait Belt,Front Wheeled Walker Comments Mobility Comments Increased time for pt to get herself to the edge of the bed . If not using the FWW , needing DARCI-MODA for transfer as leans the the right and unsteady on her feet. When using the FWW, pt is SBA. OT- Balance Assessment Sitting Balance and Reactions Static Sitting Balance Ability Normal Dynamic Sitting Balance Ability Good Standing Balance and Reactions Static Standing Balance Ability Fair Dynamic Standing Balance Ability Poor M8 OT- IP Objective Assessments Start: 09/22/19 12:20 Freq: Status: Active Protocol: Document 09/22/19 09:25 [facility] (Rec: 09/22/19 12:39 [facility] [id number]) OT Gross Range of Motion Upper Extremity Range of Motion Assessment Within Functional Limits OT Strength Comments Strength Comments LUE 4/5 throughout, RUE 4-/5 to 4/5 OT- Coordination Assessment Upper Extremity Finger to Nose Test Within Functional Limits Comments Coordination Comments Pt has difficulty with in hand manipulation of itme in right hand. 9 Hole Peg Hand Test right hand 42 second, norm at 50% in 22.5 seconds for her age. Left hand 32 seconds and 25 sec. is the norm at 50% for her age. OT-Muscle Tone Assessment Muscle Tone WNL Yes OT Sensation Assessment Location Right Hand Light Touch Intact/Normal Deep Pressure Intact/Normal Proprioception (Position) Intact/Normal Stereognosis Intact/Normal Sensation Description Tingling Comments Summary Comments Pt intact but pt noted feels off with right hand. M9 OT- IP Assessment and Plan Start: 09/22/19 12:20 Freq: Status: Active Protocol: Document 09/22/19 09:25 [facility] (Rec: 09/22/19 12:39 [facility] [id number]) OT Summary Assessment and Plan Potential Rehabilitation Potential Excellent Analytic Complexity at Evaluation Low Summary OT Impairments Coordination,Functional Mobility,Grooming,Dressing, Toileting,Bathing,Toilet Transfers,Shower Transfers, Activity Tolerance Progress Towards Goals Progressing Toward Goals Assessment Summary Pt low complexity s/p TIA and negative for MRI but did not 50% narrowing can be seen for rigth V4 segment and for left proximal internal carotid artery. Pt main barriers are decreased balance, smoothness and speed of coordination right hand greater than left, and would benefit from outpt PT and OT. Goals Self-Feeding Goal Independent Grooming Goal Independent Dressing Goal Independent Toileting Goal Independent Bathing Goal Independent Toilet Transfer Goal Independent Shower Transfer Goal Independent Days to Meet Goals 2 Frequency of Treatment Frequency Of Treatment Once a Day Treatment Plan OT Treatment Plan ADL Training,Functional Mobility,Patient/Family Education,Discharge Planning Discharge Recommendations OT Discharge Recommendations Home with Assistance, Outpatient PT Other Discharge Recommendations Outpt OT for coordination. Home Equipment Needs Shower chair, FWW Transportation Needs at Discharge Private Vehicle
--- NOTE | 2019-09-22 10:45 | CM.DANOTE ---
Addendum entered by Yessy Hinojosa LPN 09/22/19 11:32: PT and OT noted concerns re pt's ongoing symptoms. They will speak with Dr. Corrales re their findings. PT Manjula is recommending a FWW at d/c and order for same is obtained. ? Out/patient therapy? Will be following. DC order remains in place but is not finalized at this time. Original Note: Discharge Planning/Care Management DDP: assessment: case received, EMR reviewed and met with pt during Team Bedside Rounds. Introduced self and role. Pt is a 64 year old female who admitted to care of hospitalist team yesterday afternoon. PCP: Xiomara Guzman Payer: [facility]. Dr. Corrales explained to pt and team that pt was admitted with ? TIA/CVA and PT/OT/EHS MANAGER are ordered. At time of rounds EHS MANAGER was just completing her assessment and did state that pt's slurred speach was still evident but that she was cleared from EHS MANAGER for the home setting. PT/OT notes are not yet available. ECHO is planned but Dr. Corrales stated that this would be done as an out-patient. Pt is aware that she will likely be ok for home later today. Dr. Corrales expects he will have more information by this afternoon. Pt says she is pleased that this is likely. She will look at someone to pick her up. Says she has 2 adult sons in [place] and will have one of them or perhaps her roommate pick her up. P: home when stable for same: expected later today. AMPARO Stone stated she alert this d/c search planner if pt was unable to find a ride to her [place] home. CM Discharge Assessment Start: 09/22/19 10:43 Freq: Status: Active Protocol: Document 09/22/19 10:43 ITV (Rec: 09/22/19 10:44 ITV [id number]) Discharge Planning Assessment Advance Directives? No History Provided By Patient,Medical Record Has Patient been admitted in last 30 No days? Prior Living Arrangements House Household Members other Comment lives with roommate. Independent with ADL's Yes Is patient alert and oriented? Yes Review Status In Process
--- NOTE | 2019-09-22 11:08 | ST.IPSLE ---
Visit Care Team Role Provider Type Xiomara Guzman Primary Care Provider Non-Staff Specialty: Medical Address: [facility] [address], [address], [place], [address] Email: LUIS MANUEL Dent Family Provider Advanced Net Making Supervisor Specialty: Family Practice Address: [address] [place] [address], [place], [address] Email: [email or web address] Salas Blood MD Emergency Provider Physician Specialty: Emergency Medicine Address: [address] [place] [address], [address] Email: Dakotah Corrales DO Admit Provider Physician Attending Provider Specialty: Internal Medicine Address: [address] [place] [address], [facility] Email: [email or web address] Past Medical History (Last Updated 09/21/19 @ 15:54 by Dakotah Corrales DO) Hypertension (Acute Medical) Speech-Language Pathology Speech/Language Eval WREATH MAKER Language Evaluation Start: 09/22/19 10:26 Freq: Status: Active Protocol: Document 09/22/19 10:27 LL (Rec: 09/22/19 11:06 LL [id number]) Language Evaluation Session Time Visit Start Time 09:35 Visit Stop Time 10:05 Total Visit Minutes 30 Referral Referring Physician Dakotah Corrales DO Reason for Referral Stroke Protocol - Possible TIA Language Evaluation Assessment Type Speech-Language Past Medical History Patient History Per H&P, Christy Jimenez is a 64 year old female with PMH of HTN who presented to the emergency room with onset of slurred speech and imbalance starting at approximately 2 pm yesterday. She states that yesterday at approximately 2: 00 p.m. she noticed that she was having difficulty speaking , problems with word findings as well as some slurring of her words. She also noticed that she was having a hard time walking. She denies any focal weakness or numbness, but stated that she did have some trouble with coordination and writing. She did not improved this morning this is when she decided to come to the emergency room. She also notes that her family thinks her speech pattern has changed . She thinks she may have been having palpitations yesterday, but cannot completely recall. She denies any chest pain, shortness of breath, headache, vision changes, abdominal pain, nausea, vomiting, diarrhea, lower extremity edema, orthopnea. Medical History List: - Hypertension (Acute) Hearing Hearing Level Normal Vision Vision Status Impaired Comments Wears prescription glasses - Vision WNL when wearing glasses [place] Language Language(s) Spoken in the Home [place] Educational Status Education Level Highest level of education obtained : High School Occupational Status Occupation Status health workers Previous Therapy Previous Speech-Language Therapy No Oral Motor Examination Oral Motor Exam Completed Yes: WFL Results Oral Peripheral Exam: Normal oral cavity size and symmetrical structures WFL of strength, coordination, and ROM. Patient has complete natural dentition in adequate condition. Subjective Subjective The pt was sitting up in bed, awake, alert, and oriented x 4 . Pt agreeable to participate in comprehensive speech- language assessment. Pt reported slurred speech since incident and hospitalization. Pt stated my tongue feels thick making it hard to speak clearly. Pt denied any cognitive and receptive language difficulties. - Informal Assessment Receptive Language Normal Yes Expressive Language Normal No: mildly impaired in spontaneous conversation Articulation Normal No: mildly slurred speech, imprecise articulation, and blended word boundaries Cognition Normal Yes Assessment Findings The pt presents with mildly impaired expressive language skills and speech articulation , characterized by slurred speech, reduced speech intelligibility during spontaneous conversation, imprecise articulation, and occasional blended word boundaries. - Receptive Language Yes/No Questions Skill Level WFL Following Directions - Verbal Skill Level WFL Defining Words Skill Level WFL Auditory Comprehension Skill Level WFL Reading Comprehension Skill Level WFL Receptive Language Comments Receptive Language Comments Receptive language skills appeared WFL. Pt performed WFL with tasks of confrontation naming, picture and R/L body part identification, reading words/phrase/sentences, answering simple and complex yes/no questions, automatic speech tasks, and phrase completion. - Expressive Language Automatic Speech Skill Level Mildly Impaired Sentence Closure Skill Level WFL Object Naming Skill Level WFL Stating Functions Skill Level WFL Oral Expression Skill Level Mildly Impaired Expressive Language Comments Expressive Language Comments The pt presents with mildly impaired expressive language skills and speech articulation , characterized by slurred speech, reduced speech intelligibility during spontaneous conversation, imprecise articulation, and occasional blended word boundaries. - Findings Language Findings Pt presents with mild dysarthria likely due to possible TIA. Receptive language skills appeared WFL. WREATH MAKER reviewed evaluation results with patient and recommended that patient receive outpatient speech services if mild dysarthria does not resolve. WREATH MAKER provided patient with several handouts explaining dysarthria in greater detail and compensatory speaking strategies to utilize to increase overall speech intelligibility. WREATH MAKER reviewed each handout and placed handouts in pt's blue folder. Recommendations Recommendations Pt was educated of results. Recommend outpatient speech services if mild dysarthria does not resolve. Pt verbalized understanding and agreement with plan. *Discharge placement: Home. * Outpatient services if mild dysarthria does not resolve.
--- NOTE | 2019-09-22 11:53 | PT.IIE ---
Surgical History (Last Reviewed 09/21/19 @ 11:17 by Salas Blood MD) History of thyroidectomy History of tonsillectomy Medical History (Last Updated 09/21/19 @ 15:54 by Dakotah Corrales DO) Hypertension (Acute) Physical Therapy Inpatient Evaluation/Re-Eval M1 PT/OT-IP Prior Functional Status Start: 09/22/19 08:38 Freq: NEEDED Status: Active Protocol: Document 09/22/19 11:18 AW (Rec: 09/22/19 11:53 AW [id number]) Medical Review Prior Functional Status Medical History Reviewed Yes Communication WNL. No known baseline deficits Mobility and Gait Pt is an independent community ambulator. Activities of Daily Living and IADL's Independent Social History Household Members other Living Arrangements House Number of Floors (Floors) One Floor Number of Stairs To Enter/Railing? 1 SINCERE through the garage Home Environment Standard Height Toilet,Walk in Shower,Tub/Shower,Built-In Shower Seat Employment Status Coordinator Of Health Services Employed Additional Social History Comment Pt lives in [place] and has a roommate who is active duty [employer]. 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 M2 PT-IP Current Condition Start: 09/22/19 08:38 Freq: NEEDED Status: Active Protocol: Document 09/22/19 11:18 AW (Rec: 09/22/19 11:53 AW [id number]) Physical Therapy Current Condition Current Condition Evaluation Date 09/22/19 Treatment Diagnosis TIA; impaired balance; difficulty in walking Onset Date 09/20/19 M3 PT-IP Subjective Start: 09/22/19 08:38 Freq: NEEDED Status: Active Protocol: Document 09/22/19 11:18 AW (Rec: 09/22/19 11:53 AW [id number]) Subjective Physical Therapy Visit Type Type Initial Evaluation Visit Start Time 10:37 Visit Stop Time 11:07 Total Visit Minutes 30 Notes MRI was negative for acute process. MRA found: Areas of proximally 50% narrowing can be seen involving the right V4 segment. There is approximately 50% narrowing seen involving the left proximal internal carotid artery. Physical Therapy Visit Comments Patient Comments I feel off with my balance. Therapy Pain Assessment Pain When Pain Assessed During Mobility Pain Present Pain Present Denied Pain M4 PT-IP Mobility and Gait Start: 09/22/19 08:38 Freq: NEEDED Status: Active Protocol: Document 09/22/19 11:18 AW (Rec: 09/22/19 11:53 AW [id number]) PT-Bed Mobility Assessment Sit to Supine Sit to Supine Independent Scooting Scooting to Edge of Bed Independent PT-Transfer Assessment Sit to and From Stand Sit to and from Stand Standby Assistance,Use of Upper Extremities Equipment Transfer Assistive Device Gait Belt,Front Wheeled Walker Orthotic/Prosthetic Devices or Brace: No Transfers Transfer Destination Bed,Chair Transfer Technique pt ambulated with FWW Transfer Ability Level of Assist Standby Assistance Comments Mobility Comments Pt was sitting EOB upon PT arrival. She was able to stand from the bed in its lowest position SBA but was unsteady until able to make contact with the FWW handles. Pt was able to recover independently without PT assist. She ambulated in the halls 75 feet with FWW SBA, presenting with ataxic gait, impaired motor control. She ambulated 15 feet without AD, requiring CGA at all times due to unsteadiness. Pt returned to the room and transferred to the chair with FWW SBA where she was positioned with call light and all needs in reach. Gait Assessment Gait Gait Assistance Required: Standby Assistance,Contact Guard Assist Distance (Feet) 75 Assistive Devices Assistive Device None,Gait Belt,Front Wheeled Walker Gait Deviations General Gait Pattern Ataxic,Decreased Stride Length ,Decreased Feet Clearance, Flexed Trunk,Lateral Trunk Lean,Wide Based Gait Factors Limiting Gait Function Factors Limiting Gait Function Decreased Activity Tolerance, Decreased Sensation,Decreased Strength,Incoordination,Poor Balance Comments Gait Comments Pt presents with ataxic gait, barely clearing the floor with bilateral feet. Feet did not pass one another in gait using FWW. Pt reports having difficulty advancing her legs with right more affected than left. Pt was safe with FWW but definitely needed it for safe ambulation. Stair Climbing Assessment Comments Stair Climbing Comments Not assessed. PT-Balance Assessment Sitting Balance and Reactions Static Sitting Balance Ability Good Dynamic Sitting Balance Ability Good Standing Balance and Reactions Static Standing Balance Ability Fair Dynamic Standing Balance Ability Poor Device Used FWW Balance Tests Paris Balance Test Score 34/56 Query Text:Score Comments Other Balance Tests/Deviations/Treatment Pt unable to turn 360 degrees : either direction without assist. Required assist to attain tandem stance position. M5 PT-IP Objective Assessments Start: 09/22/19 08:38 Freq: NEEDED Status: Active Protocol: Document 09/22/19 11:18 AW (Rec: 09/22/19 11:53 AW [id number]) Orientation Orientation/Cognition Level of Alertness Alert Orientation Name,Day of Week,Place, Situation Language Function Ability Expressive Aphasia,Word Finding Difficulties Safety Awareness Understands Safety Issues Memory Description No Deficits Noted Comments Pt having difficulty during conversation with simple word finding ~5% of the time. Gross Range of Motion Lower Extremity ROM Assessment Within Functional Limits Strength Lower Extremity Strength Assessment Right Impaired Hip 4/5 Knee 4/5 Ankle 4/5 Comments Strength Comments LLE grossly 4+/5. Unilateral impairment is subtle but detectable throughout RLE. Coordination Assessment Gross Coordination Gross Coordination Impaired Assessment Finger to Nose Test Minimal Impairment Heel on Street Test Minimal Impairment Coordination Comments greater impairment RLE vs LLE Sensation Assessment Sensation Gross Sensation Right UE Impaired Light Touch Impaired Sensation Description Tingling Comments Sensation Comments Pt reports tingling right hand Muscle Tone Muscle Tone WNL No Comments Muscle Tone Comments 4 beats clonus right ankle. No clonus left ankle. M6 PT-IP Treatment Start: 09/22/19 08:38 Freq: NEEDED Status: Active Protocol: Document 09/22/19 11:18 AW (Rec: 09/22/19 11:53 AW [id number]) Physical Therapy Treatment Education Education Provided Safety Other Treatments Other Treatment Performed Provided education on role of PT, plan of care, need for assistive device. M7 PT-IP Assessment and Plan Start: 09/22/19 08:38 Freq: NEEDED Status: Active Protocol: Document 09/22/19 11:18 AW (Rec: 09/22/19 11:53 AW [id number]) PT Summary Assessment and Plan Potential Rehabilitation Potential Good Status of Condition at Evaluation Evolving Summary Impairments Strength,Balance,Coordination, Sensation,Tone,Transfers,Gait Assessment Summary Duc is a 64 yo woman seen for PT evaluation after being admitted with slurred speech and impaired balance. She is independent in all regards at baseline. She works in [employer] services at the [employer]. On evaluation , pt presents with subtle right LE weakness, sensation disturbance in the right hand, and significantly impaired balance (scores 34/56 on Paris Balance Scale). Four beats clonus noted at right ankle. With no assistive device, pt required CGA at all times due to unsteady, ataxic gait. Pt has improved control of LEs with use of FWW, requiring decreased assist. Pt will be safe to discharge to home environment with FWW and referral to outpatient PT for aggressive plan of care to address unilateral strength and balance impairments. Goals Bed Mobility Goal Independent Transfer Goal Independent,Front Wheeled Walker Gait Goal Standby Assistance,Front Wheel Walker Gait Distance 200 Other Goals - pt will score 40/50 on Paris Balance to demonstrate improved independence with gait Days to Meet Goals 10 Frequency of Treatment Frequency Of Treatment Once a Day Treatment Plan Physical Therapy Treatment Plan Bed Mobility Training,Transfer Training,Gait Training, Therapeutic Exercise,Balance Retraining,Discharge Planning, Hot or Cold Pack,Neuromuscular Re-ed,Coordination Retraining Other Recommendations and Next Treatment gait training; balance Focus activities Discharge Recommendations PT Discharge Recommendations Home with Assistance, Outpatient PT Equipment Needed for Home Before FWW Discharge Transportation Needs at Discharge Private Vehicle
--- NOTE | 2019-09-22 12:15 | PM.DS.1 ---
History of Present Illness History of Present Illness Date Patient Seen: 09/22/19 Time Patient Seen: 12:16 Chief complaint: off balance/ slurred speech Narrative: Christy Jimenez is a 64 year old female with PMH of HTN who presented to the emergency room with onset of slurred speech and imbalance starting at approximately 2 pm yesterday. She states that yesterday at approximately 2:00 p.m. she noticed that she was having difficulty speaking, problems with word findings as well as some slurring of her words. She also noticed that she was having a hard time walking. She denies any focal weakness or numbness, but stated that she did have some trouble with coordination and writing. She did not improved this morning this is when she decided to come to the emergency room. She also notes that her family thinks her speech pattern has changed. She thinks she may have been having palpitations yesterday, but cannot completely recall. She denies any chest pain, shortness of breath, headache, vision changes, abdominal pain, nausea, vomiting, diarrhea, lower extremity edema, orthopnea. In the emergency room, patient was initially hypertensive with a blood pressure of 233/93, she was also mildly bradycardic in the 40s. EKG showed a bradycardia with primary block without evidence of active ischemia. Laboratory findings were unremarkable with a negative troponin, and negative COVID-[address] was unremarkable. Head and neck CTA was also unremarkable. Before arrival to the floor MRI was ordered which did not show any evidence of active ischemia, but did show approximately 50% stenosis of her left internal carotid artery. Patient was admitted under observation status for likely TIA. Discharge Providers Provider Date of admission: 09/21/19 13:37 Discharge Date: 09/22/19 Primary care physician: Xiomara Parson Consults: 09/21/19 16:04 Consult to Occupational Therapy Evaluate & Treat Comment: Physician Instructions: Evaluate and treat Consult to Physical Therapy Evaluate & Treat Comment: Physician Instructions: Evaluate and Treat 09/21/19 16:29 Consult to Speech Therapy Evaluate & Treat Comment: Physician Instructions: Evaluate and treat 09/22/19 11:29 Consult to Discharge Planning Routine Comment: Per PT recommendation: FWW at d/c. Discharge provider: Dakotah Corrales DO Summary Hospital Course Discharge Diagnosis: 1. Slurred speech and imbalance, acute, reportedly present on admission 2. Acute CVA, acute, present on admission 3. Hypertensive urgency, acute, present on admission 4. Bradycardia, present on admission. Hospital Course: Christy Ingram is a 64-year-old female with past medical history of hypertension that presented with sudden onset of slurred speech and imbalance. No overt symptoms were noted on physical exam except for mild right-sided facial asymmetry on my exam, however with physical therapy and speech therapy she had continued difficulties with slowing only certain words and with physical therapy she had difficulty walking compared to baseline with imbalance requiring a walker. Imaging performed included a CT head, CT angiogram of her head neck, and MRI stroke protocol. All were negative for active ischemia, however given clinical symptoms and persistent deficits lasting longer than 24 hours with improved blood pressure control I highly suspect a false negative MRI and that the patient did have a stroke. She did have some left sided carotid stenosis, however not clinically significant at approximately 50%. She is being treated as if she did have a stroke with lipid lowering therapy with a statin, aspirin for life, and Plavix for 21 days upon discharge. She also has a profound bradycardia likely due to high doses of outpatient extended-release metoprolol. She is asymptomatic from her bradycardia, but her doses were decreased from 200 mg in the morning, and 100 mg at night to 50 mg twice daily. Lisinopril was further added to supplement blood pressure control. She should follow-up with her primary care provider within the week for a blood pressure check and symptom check. She should continue with outpatient physical therapy. She may need to further decrease her beta-jack even more as an outpatient. Advised her to continue to check her blood pressures in the morning to help with adjustment of these medications as an outpatient. Exam Vital Signs (past 8 hours): - 09/22/19 06:35 09/22/19 08:00 09/22/19 10:30 Temperature 97.6 F Pulse Rate 48 L 54 L Respiratory Rate 18 Blood Pressure 171/76 H 136/61 Pulse Oximetry 97 97 09/22/19 10:33 Temperature Pulse Rate 54 L Respiratory Rate Blood Pressure 136/61 Pulse Oximetry Oxygen Delivery Method Room Air Oxygen Flow Rate 0 Narrative Exam Narrative: GENERAL APPEARANCE: Well developed, well nourished, in no acute distress. SKIN: Inspection of the skin reveals no rashes, ulcerations or petechiae. HEENT: Normocephalic atraumatic, extraocular muscles are intact, oropharynx is clear and mucous membranes are moist, neck is supple without adenopathy NECK: Supple and symmetric. There was no thyroid enlargement, and no tenderness, or masses were felt. CHEST: Normal AP diameter and normal contour without any kyphoscoliosis. LUNGS: Auscultation of the lungs revealed no wheezes, rhonchi, or rales. CARDIOVASCULAR: There was a bradycardic rate with regular rhythm with a 2/6 systolic murmur. Peripheral pulses were 2+ and symmetric. ABDOMEN: Soft and nontender with normal bowel sounds. No ascites was noted. MUSCULOSKELETAL: There was no tenderness or effusions noted. Muscle strength and tone were normal. EXTREMITIES: No cyanosis, clubbing or edema. NEUROLOGIC: Alert and oriented x 3. Normal affect. There is very minor facial asymmetry on the right that resolves with smiling, unclear if this is chronic or acute. I notice no difficulties with speech on my examination. Objective Labs Result Diagrams: 09/22/19 05:00 09/22/19 05:00 Labs: Laboratory Results - last 24 hr 09/21/19 09/22/19 09/22/19 14:00 05:00 05:00 WBC 4.7 RBC 4.40 Hgb 14.1 Hct 40.2 MCV 91.2 MCH 32.0 MCHC 35.1 RDW 13.2 Plt Count 183 Neut % (Auto) 58.5 Lymph % (Auto) 26.7 [place] % (Auto) 9.1 Eos % (Auto) 4.8 H Baso % (Auto) 0.9 Neut # (Auto) 2700 Lymph # (Auto) 1200 [place] # (Auto) 400 Eos # (Auto) 200 Baso # (Auto) 0 Sodium 138 Potassium 4.8 Chloride 107 Carbon Dioxide 27 BUN 16 Creatinine 0.63 Estimated GFR > 60.0 BUN/Creatinine Ratio 25.4 H Glucose 99 Hemoglobin A1c Calcium 9.4 Magnesium 2.2 Total Bilirubin 0.9 Conjugated Bilirubin 0.0 Unconjugated Bilirubin 0.9 AST 22 ALT 18 Alkaline Phosphatase 68 Total Protein 7.0 Albumin 4.3 Globulin 2.7 Albumin/Globulin Ratio 1.6 Triglycerides 156 H Cholesterol 229 H LDL Cholesterol, Calc 153 H HDL Cholesterol 45 TSH COVID-19 PCR Negative 09/22/19 09/22/19 05:00 05:00 WBC RBC Hgb Hct MCV MCH MCHC RDW Plt Count Neut % (Auto) Lymph % (Auto) [place] % (Auto) Eos % (Auto) Baso % (Auto) Neut # (Auto) Lymph # (Auto) [place] # (Auto) Eos # (Auto) Baso # (Auto) Sodium Potassium Chloride Carbon Dioxide BUN Creatinine Estimated GFR BUN/Creatinine Ratio Glucose Hemoglobin A1c 5.0 Calcium Magnesium Total Bilirubin Conjugated Bilirubin Unconjugated Bilirubin AST ALT Alkaline Phosphatase Total Protein Albumin Globulin Albumin/Globulin Ratio Triglycerides Cholesterol LDL Cholesterol, Calc HDL Cholesterol TSH 3.47 COVID-19 PCR Discharge Plan Discharge Plan Patient Disposition: Home Discharge comment: You were admitted to the hospital With symptoms of a stroke including slurred speech. You were also found to have some coordination difficulties with your right side and with her balance. You should continue outpatient physical therapy to help minimize long-term deficits. Despite showing symptoms of a stroke your MRI was negative, however you being managed as if you did have a stroke. You were also started on medications to help prevent you from having a possible future stroke. 1 aspect of this is controlling Your blood pressure. your heart rate was very slow and your dose of metoprolol was decreased to 50 mg twice daily. You were also started on lisinopril 10 mg. Both of these medicines affect her blood pressure and it appears controlled today. You should follow-up with her primary care provider to continue these medications, or possibly adjust them. You should measure your blood pressure at home over the next few days and follow-up see her primary care provider ideally before the end of the week. You were also started on 2 medications that work to prevent clot formation. You should continue aspirin 81 mg daily for the rest of your life, and additionally Plavix which you should take for the next 3 weeks only. Your cholesterol was also slightly high, and your started on a medication to help lower at called atorvastatin. You should also likely continue this for the rest of your life. Discharge orders & Medications Prescriptions: New atorvastatin [Lipitor] 20 mg Tablet 40 mg PO BEDTIME 30 Days Qty: 30 RF: 0 metoprolol succinate 50 mg Tablet Extended Release 24 Hr 50 mg PO BID 30 Days Qty: 60 RF: 0 clopidogrel 75 mg Tablet 75 mg PO DAILY 21 Days Qty: 21 RF: 0 aspirin 81 mg Tablet,Delayed Release (Dr/Ec) 81 mg PO DAILY 30 Days Qty: 30 RF: 0 lisinopril 10 mg Tablet 10 mg PO DAILY 30 Days Qty: 30 RF: 0 Continued CA PANTOTHENATE/FOLIC ACID/VIT (MULTIVITAMIN) 1 tab PO Q DAY Qty: 0 RF: 0 [TRI-IRON WITH FOLATE] 200 mcg PO Q DAY Qty: 0 RF: 0 Discontinued metoprolol succinate 100 mg Tablet Extended Release 24 Hr 100 mg PO BID RF: 0 Follow up/Referrals: Xiomara Guzman [Primary Care Provider] - Diet/Activity/Treatments Diet: Diet as Tolerated Activity: As tolerated Visit Report/Discharge Packet Instructions: DI for Transient Ischemic Attack, How to Prevent Falls, Metoprolol, Lisinopril Visit Report Forms: Patient Portal/API, Stroke Signs & Symptoms Discharge Data Primary Care Provider: Xiomara Guzman Attending Provider: Dakotah Corrales Admlynda Date/Time: 09/21/19 13:37 Quality VTE Deep Vein Thrombosis/Pulmonary Embolism Present on Admission: No
--- NOTE | 2019-09-22 16:09 | PC.NURSE ---
Discharge instructions covered with pt., discussed with case management options for follow up for pt as [place] care doctor is [place]. Case management states that her insurance will be accepted at the [facility], so pt agrees to follow up there by the end of the week.
== END 2019-09-22 16:50 | disposition home or self-care (01) ==
LOC: ED 13:34 → AC 13:40
PROVIDERS: Admitting Provider Internal Medicine; Emergency Provider Emergency Medicine; Family Provider Internal Medicine; PCP Naturopath; Visit Provider Internal Medicine
DX: I63.9 Cerebral infarction, unspecified (principal); R47.81 Slurred speech; I10 Essential (primary) hypertension; I16.0 Hypertensive urgency; Z11.59 Encounter for screening for other viral diseases; R29.702 NIHSS score 2
CPT/HCPCS: 36415; 70450; 70496; 70498; 70548; 70553; 71045; 80048; 80053; 80061; 80076; 81003; 82550; 82962; 83036; 83735; 84443; 84484; 85025; 85610; 85651; 85730; 87635; 92523; 93005; 96372; 96374; 97116; 97162; 97165; 97530; 99285; G0378; A9579; J0360; J1650; Q9967

== ENCOUNTER → 2019-10-12 06:43 | Outpatient (CLI) | payer OTHER, SELFPAY ==
[2019-09-21 14:16] VITALS: BMI 32.7
--- NOTE | 2019-10-12 | DI.ECHO.S_ITS ---
[facility]---------+ [facility] +---------+ : : [address] : : : : [id number] : : : : Phone: [phone] Echocardiogram Report + + :Name: SHAHBAZ RESTREPO Study Date: 10/12/2019 Height: 66 in : :[facility] Weight: 205 lb : : Gender: Female BSA: 2.0 m2 : :: 1955 Age: 64 yrs BP: 139/85 mmHg: :Reason For Study: Bradycardia : : Performed By: Gisella Nicole : :Referring: SEJAL DIAZ : + + Interpretation Summary The ejection fraction is estimated to be 60-65%. There is mild aortic regurgitation. Procedure: A two-dimensional transthoracic echocardiogram with color flow and Doppler was performed. The study quality was technically adequate. The patient was in sinus bradycardia with heart rates between 50-61 bpm during the exam. Left Ventricle: The left ventricle is normal in size and wall thickness. The ejection fraction is estimated to be 60-65%. Left ventricular wall motion is normal. Diastolic parameters suggest probable normal left ventricular diastolic function and normal filling pressures. Right Ventricle: The right ventricle is normal in size and function. Atria: The left atrial size is normal. Right atrial size is normal. There is no Doppler evidence for an interatrial shunt. Mitral Valve: There is mild mitral annular calcification. The mitral valve is normal in structure and function. There is no mitral regurgitation noted. Aortic Valve: The aortic valve is trileaflet. The aortic valve opens well. There is no aortic valve stenosis. There is mild aortic regurgitation. Tricuspid Valve: The tricuspid valve is normal in structure and function. There is a trace or physiologic amount of tricuspid regurgitation. Pulmonic Valve: The pulmonic valve is not well visualized. There is no pulmonic valvular regurgitation. Great Vessels: The aortic root is normal size. The ascending aorta is normal in size. The IVC is of normal diameter and collapses greater than 50% with a sniff. This suggests a low right atrial pressure of 3 mm Hg. Pericardium/ Pleura There is no pericardial effusion. There is no pleural effusion. MMode/2D Measurements & Calculations LVIDd: 4.9 cm LVOT diam: 2.3 cm LVIDs: 3.3 cm Ao root diam: 3.6 cm FS: 34.1 % asc Aorta Diam: 3.3 cm EPSS: 0.50 cm Ao Arch Diam (Prox Trans): 2.9 cm IVSd: 0.84 cm LVPWd: 0.86 cm LV wayne. diameter/BSA (cm/m^2): 2.4 LV sys. diameter/BSA (cm/m^2): 1.6 LA A2 area: 24.3 cm2 RA long axis: 4.5 cm LA A4 area: 15.0 cm2 RA area: 14.3 cm2 LA length (vol): 4.9 cm RA vol: 38.4 ml LA vol: 63.4 ml RA : 19.0 ml/m2 LA vol index: 31.3 ml/m2 IVC diam: 1.2 cm RVD1 (basal): 3.2 cm TAPSE: 2.4 cm Doppler Measurements & Calculations Ao V2 max: 147.1 cm/sec LVOT Max Wyatt: 128.0 cm/sec Ao V2 mean: 91.7 cm/sec LV V1 max P.6 mmHg Ao max P.7 mmHg LV V1 VTI: 26.4 cm Ao mean P.0 mmHg MARCO(I,D): 3.8 cm2 Ao V2 VTI: 29.7 cm MARCO(V,D): 3.7 cm2 sev ratio: 0.89 MARCO indexed to BSA (cm^2/m^2): 1.9 AI P1/2t: 1015 msec AI dec slope: 117.3 cm/sec2 MV E max wyatt: 63.9 cm/sec PA V2 max: 86.0 cm/sec MV A max wyatt: 70.3 cm/sec PA V2 mean: 51.5 cm/sec MV E/A: 0.91 PA mean P.3 mmHg Med Peak E' Wyatt: 4.3 cm/sec PA pr(Accel): -5.8 mmHg E/E' med: 14.9 Lat Peak E' Wyatt: 6.1 cm/sec E/E' lat: 10.5 E/e' average: 12.7 MV dec time: 0.29 sec SV(LVOT): 112.6 ml Reading Physician:11:07 AM
== END ==
PROVIDERS: Family Provider Internal Medicine; PCP Physician Assistant Medical; Referring Provider Physician Assistant Medical; Visit Provider Physician Assistant Medical
DX: I35.1 Nonrheumatic aortic (valve) insufficiency (principal); R00.1 Bradycardia, unspecified
CPT/HCPCS: 93306

== ENCOUNTER → 2019-12-12 15:30 | Outpatient (CLI) | payer OTHER, SELFPAY ==
[2019-09-21 14:16] VITALS: BMI 32.7
[2019-12-14 02:09] LABS: COVID19 Sendout Not Detected (Not Detect)
== END ==
PROVIDERS: Family Provider Internal Medicine; PCP Physician Assistant Medical; Visit Provider Student in an Organized Health Care Education/Training Program
DX: Z11.59 Encounter for screening for other viral diseases (principal)
CPT/HCPCS: 87635

== ENCOUNTER → 2019-12-15 15:03 | Outpatient (CLI) | payer OTHER, SELFPAY ==
[2019-09-21 14:16] VITALS: BMI 32.7
--- NOTE | 2019-12-15 19:40 | DI.NM.S_ITS ---
DATE OF SERVICE: 12/15/2019 PROCEDURE: Exercise perfusion study. INDICATION: TIA with underlying hypertension. EXERCISE STUDY: The patient underwent exercise stress test under the supervision of an attending staff using a standard Ghassan protocol. He walked on Ghassan protocol for 7 minutes 19 seconds and achieved 97 percent of target heart rate, normal blood pressure response, 10.1 METs of workload and functional aerobic impairment -14 percent. No chest pain or anginal symptoms. Baseline rhythm was sinus with left anterior fascicular block. During stress, there were significant artifacts seen. Stress EKG was difficult to interpret, however, in the immediate recovery, there were no significant ischemic changes seen. Some isolated PVCs cannot be ruled out. No significant sustained arrhythmias seen. CONCLUSION: Exercise stress test did not reveal any obvious inducible ischemic EKG changes. Patient has baseline rhythm sinus with left anterior fascicular block. Normal hemodynamic response. He walked on Ghassan protocol for 7 minutes 19 seconds, and functional aerobic impairment -14 percent. Overall, this is a low-risk exercise stress test. Christy Jimenez - Olive/sean doc#: [id number]/job#: [id number] dd: 12/15/2019 17:22:00 dt: 12/15/2019 19:26:00 DICTATING /COPIES TO: Mayra Torres MD COPIES MNE: MALIHA;
== END ==
PROVIDERS: Family Provider Internal Medicine; PCP Physician Assistant; Referring Provider Internal Medicine Cardiovascular Disease; Visit Provider Internal Medicine Cardiovascular Disease
DX: R00.1 Bradycardia, unspecified (principal); I10 Essential (primary) hypertension; E78.5 Hyperlipidemia, unspecified; Z86.73 Personal history of transient ischemic attack (TIA), and cerebral infarction without residual deficits
CPT/HCPCS: 93017

== ENCOUNTER → 2019-12-20 13:34 | Outpatient (CLI) | payer OTHER, SELFPAY ==
[2019-09-21 14:16] VITALS: BMI 32.7
[2019-12-21 13:16] LABS: COVID19 Sendout Not Detected (Not Detect)
== END ==
PROVIDERS: Family Provider Internal Medicine; PCP Physician Assistant; Visit Provider Nurse Practitioner
DX: Z01.812 Encounter for preprocedural laboratory examination (principal)
CPT/HCPCS: 87635

== ENCOUNTER 2020-03-02 12:12 | Observation (INO) | payer OTHER, SELFPAY ==
[2019-09-21 14:16] VITALS: BMI 32.7
[2020-03-02 15:35] VITALS: BP 143/74; PULSE 72; RESP 17; TEMP 36.4; O2SAT 98
[2020-03-02 15:48] VITALS: BMI 32.8
--- NOTE | 2020-03-02 15:55 | DI.MRI.S_ITS ---
PROCEDURE: MR HEAD/BRAIN WO CON INDICATIONS: Sudden on set of dizziness. Clinical concern for cva TECHNIQUE: Non-contrast axial T1 spin echo, axial T2 fast spin echo, sagittal and axial FLAIR, coronal T2 fast spin echo, axial gradient echo, axial diffusion and ADC through the brain. COMPARISON: [facility], CT, CT HEAD/BRAIN WO CON, 09/21/2019, 11:05. [facility], CT, CT ANGIO HEAD AND NECK, 09/21/2019, 13:26. [facility], MR, MR STROKE, 09/21/2019, 14:31. FINDINGS: Image quality: Excellent. CSF spaces: Ventricles appear symmetric in size and shape. Basal cisterns are patent. No extra-axial fluid collections. Brain: No intracranial bleeds or mass effects. There is cerebral volume loss for age. There are periventricular and deep white matter chronic small vessel ischemic changes. Brainstem appears normal. Diffusion-weighted images show no acute ischemic insults. No chronic ischemic insults. Normal intravascular flow voids are present. In this patient with this given history, scrutiny is given to cerebellopontine angle cisterns and to the internal auditory canals. To the limits of this standard protocol study performed without contrast, no masses can be seen within these regions. Skull and face: Calvarial bone marrow is normal in signal. Orbits are normal. Sinuses: Mild mucosal thickening is seen within the maxillary sinuses. Mild mucosal thickening is seen elsewhere within the paranasal sinuses. No abnormal fluid is seen within the mastoid air cells. IMPRESSION: No imaging explanation is found for this patient's presenting symptoms. Negative for acute infarction. Brain parenchymal volume loss and chronic small vessel ischemic changes can be seen. Dictated by: Too Villalobos M.D. on 03/02/2020 at 15:29 Approved by: Too Villalobos M.D. on 03/02/2020 at 15:31
--- NOTE | 2020-03-02 17:34 | P.HP_ITS ---
History of Present Illness History of Present Illness Date Patient Seen: 03/02/20 Time Patient Seen: 17:00 Date of Onset of Symptoms: 03/02/20 Chief complaint: CVA/TIA rule out Narrative: Patient is a 64-year-old female with history of hypertension, hyperlipidemia, CVA September 2019 with right hemiparesis presented to [facility] due to sudden difficulty with maintaining her balance. Patient got up for work at 4:00 a.m. and was feeling fine but went back to bed because of work cancellation due to power outage. She then woke up at 6:00 a.m. to pee and noticed she was very off balance but managed to get back in bed. She denies spinning type sensation, diplopia, nausea or vomiting. She woke up again at 8:00 a.m. with continued sensation of difficulty maintaining her balance. She took her blood pressure and noted it was 200 systolic and 215 systolic on recheck. She also felt a slight pressure in her head. Patient then came to emergency department around 10:00 a.m. and was still having symptoms but over course of the following hour her symptoms resolved. Her NIHSS was 0. Her blood pressure initially was 180/82 at ED and repeat blood pressure 20 minutes later was 157/71. Patient states her blood pressures have recently been running significantly higher in the 150s and even 160s. It took a while to sort out her medication history. A couple of weeks ago she was switched from lisinopril HCT to losartan HCT due to cough. Her lisinopril HCT dose was 20-25 mg q.d. and her losartan HCT dose was equivalently lower at 50-12.5 mg q.d.. Her metoprolol dose was also reduced recently presumably due to bradycardia. Patient has been on blood pressure medication for the past couple of years. Patient presented with right hemiparesis in September of last year and admitted for CVA. She eventuality had full recovery. She states the MRI never showed the stroke. She was referred to Dr Torres and had 30 day monitor which did not show any atrial fibrillation. She was told she has a minor heart valve leakage which should not give her a problem for many years. Patient remains on both aspirin and Plavix. She states her neurologist shoulder she could drop the Plavix but she was waiting to check with Cardiology before stopping it. She has no significant smoking history. Head CT at outside hospital did not show any acute findings. Her CTA was normal except for small left thyroid nodule. Labs showed WBC 4.7, hemoglobin 14.4, hematocrit 41.9, platelets 220. Sodium 141, potassium 3.7, BUN 15, creatinine 0.7, glucose 109, calcium 9.4, INR 1.1. EKG showed sinus rhythm with 1st degree AV block and left anterior fascicular block. Patient was transferred for direct admission to [facility] due to temporary unavailability of MRI imaging for workup of possible CVA. Patient History Medical History (Updated 03/02/20 @ 17:48 by Laurent Jauregui MD) Bradycardia CVA (cerebrovascular accident) Hypertension Hypertension Surgical History History of thyroidectomy History of tonsillectomy Family & Social History Family History Mother Post-menopausal Breast cancer Sister Melanoma Social History: household members other Prior Living Arrangements House Safety & Behavioral: Feels Safe in Current Yes Environment Been Physically Hurt or No Threatened By a Person Suicide Plan Description No Plan Tobacco & Substance use: Smoking Status Never smoker alcohol intake current alcohol intake frequency a few times a month Substance Use Type does not use Meds Home Medications and Allergies Home Medications Medication Instructions Recorded Confirmed Type CA PANTOTHENATE/FOLIC ACID/VIT 1 tab PO Q DAY #0 11/28/11 09/21/19 History (MULTIVITAMIN) [TRI-IRON WITH FOLATE] 200 mcg PO Q DAY #0 11/28/11 09/22/19 History Allergies Allergy/AdvReac Type Severity Reaction Status Date / Time No Known Drug Allergies Allergy Verified 09/21/19 16:36 Review of Systems Review of Systems ROS: Yes All systems reviewed with the patient and are negative except as otherwise documented Exam Vital Signs (past 8 hours): - 03/02/20 15:35 Temperature 97.5 F L Pulse Rate 72 Respiratory Rate 17 Blood Pressure 143/74 H Pulse Oximetry 98 Oxygen Flow Rate 0 Narrative Exam Narrative: General: Alert pleasant female in no acute distress HEENT: Nontraumatic, pupils equal and reactive, EOMI, face symmetric, tongue midline Neck: Supple without lymphadenopathy Lungs: Clear to auscultation Heart: Normal S1 and S2, regular rate and rhythm without murmur Abdomen: Soft, nontender, no HSM Extremities: Warm, dry without edema Neurological: Oriented x3, affect normal, speech normal, UE strength 5/5 bilateral, LE strength 5/5 bilateral, F to N intact bilateral, H to S intact bilateral, light touch sensation intact on face and all 4 extremities Assessment & Plan Assessment & Plan narrative: This is a 64-year-old female with history of hypertension, hyperlipidemia, prior CVA presenting with acute disequilibrium lasting for at least several hours. 1. Acute TIA, present on admission, active -outside head CT and CTA negative, brain MR here without old or new CVA but does show chronic small-vessel ischemic changes -patient's TIA symptoms seem precipitated or associated with spike in blood pressure since recent change in her antihypertensive regimen, she has prior 30 day monitor without findings of AFib, she is already on dual anti-platelet therapy and high-dose statin -admit to hospital observation -telemetry monitoring, neuro checks q.4 hours -patient had echo within the past year and probably repeat echo is not necessary -continue patient's statin, aspirin, clopidogrel -resume antihypertensive regimen as below 2. Chronic hypertension -BP spike at home and initially in the ED and subsequently blood pressure has come down on its own -patient noted blood pressures at home running higher since she was switched from lisinopril HCT 20-25 to losartan HCT 50-12.5, and it is apparent the losartan HCT dose is giving her less blood pressure coverage -starting tomorrow a.m. increase losartan HCT to 100-25 mg daily and continue metoprolol succinate ER 12.5 mg daily per home routine -for long-term control patient's blood pressure goal should probably be less than 130/80 3. Hyperlipidemia -check lipid panel -continue atorvastatin 40 mg q.d. DVT prophylaxis: SCDs Code status: Full code Quality VTE Deep Vein Thrombosis/Pulmonary Embolism Present on Admission: No
[2020-03-02 17:47] VITALS: O2SAT 97
[2020-03-02 19:32] VITALS: BP 135/78; PULSE 63; RESP 17; TEMP 37; O2SAT 95
[2020-03-02 21:17] VITALS: O2SAT 95
[2020-03-02] MEDS: ATORVASTATIN 20 MG TABLET 40 MG PO (21:23)
[2020-03-02] MEDS: SODIUM CHLORIDE 0.9% FLUSH 10 ML IV (21:23)
[2020-03-02 23:56] VITALS: BP 102/62; PULSE 55; RESP 16; TEMP 36.2; O2SAT 98
[2020-03-03] VITALS (7 sets, daily range): BP systolic 124–146; BP diastolic 66–90; PULSE 61–62; RESP 15–16; TEMP 36–36.1; O2SAT 94–98
--- NOTE | 2020-03-03 03:35 | PC.NURSE ---
Pt continues to be A&Ox4, neuros intact, no c/o of pain or discomfort. Requested pt alert staff w/any perceived change in her status - she stated understanding.
[2020-03-03] MEDS: hydroCHLOROthiazide 25 MG TABLET PO (08:30)
[2020-03-03] MEDS: METOPROLOL ER 25 MG TABLET 12.5 MG PO (08:30)
[2020-03-03] MEDS: ASPIRIN EC 81 MG TABLET PO (08:30)
[2020-03-03] MEDS: LOSARTAN 50 MG TABLET 100 MG PO (08:31)
[2020-03-03] MEDS: SODIUM CHLORIDE 0.9% FLUSH 10 ML IV (08:31)
[2020-03-03] MEDS: CLOPIDOGREL 75 MG TABLET PO (08:31)
--- NOTE | 2020-03-03 11:08 | PC.NURSE ---
Pt is dressed and ready for discharge home with friend. HL removed. Went over d/c instructions with Pt -discussed d/c meds, time of last dose, reviewed stroke education, and follow up PCP as needed. Pt denied further questions and was taken out to friends POV via w/c by [employer] with all belongings.
--- NOTE | 2020-03-03 11:30 | CM.DANOTE ---
Discharge Planning/Care Management DCP: assessment: case received, EMR reviewed and discussed in Team Rounds. Dr. Jauregui stated he planned to d/c pt to home this morning. A DC order is now noted. Met now with pt and introduced self and role. Pt is found up, dressed and waiting for her friend to arrive to take her home. She states she is pleased she has been ok'd for d/c today. Payer: [facility] Admission status: OBS CM Discharge Assessment Start: 03/03/20 11:28 Freq: Status: Active Protocol: Document 03/03/20 11:28 ITV (Rec: 03/03/20 11:30 ITV [id number]) Discharge Planning Assessment Advance Directives? No History Provided By Patient,Medical Record Prior Living Arrangements House Household Members other Comment house-mate Independent with ADL's Yes Is patient alert and oriented? Yes Discharge Plan Home
--- NOTE | 2020-03-03 20:50 | P.DS_ITS ---
History of Present Illness History of Present Illness Chief complaint: CVA/TIA rule out Narrative: Patient is a 64-year-old female with history of hypertension, hyperlipidemia, CVA September 2019 with right hemiparesis presented to [facility] due to sudden difficulty with maintaining her balance. Patient got up for work at 4:00 a.m. and was feeling fine but went back to bed because of work cancellation due to power outage. She then woke up at 6:00 a.m. to pee and noticed she was very off balance but managed to get back in bed. She denies spinning type sensation, diplopia, nausea or vomiting. She woke up again at 8:00 a.m. with continued sensation of difficulty maintaining her balance. She took her blood pressure and noted it was 200 systolic and 215 systolic on recheck. She also felt a slight pressure in her head. Patient then came to emergency department around 10:00 a.m. and was still having symptoms but over course of the following hour her symptoms resolved. Her NIHSS was 0. Her blood pressure initially was 180/82 at ED and repeat blood pressure 20 minutes later was 157/71. Patient states her blood pressures have recently been running significantly higher in the 150s and even 160s. It took a while to sort out her medication history. A couple of weeks ago she was switched from lisinopril HCT to losartan HCT due to cough. Her lisinopril HCT dose was 20-25 mg q.d. and her losartan HCT dose was equivalently lower at 50-12.5 mg q.d.. Her metoprolol dose was also reduced recently presumably due to bradycardia. Patient has been on blood pressure medication for the past couple of years. Patient presented with right hemiparesis in September of last year and admitted for CVA. She eventuality had full recovery. She states the MRI never showed the stroke. She was referred to Dr Torres and had 30 day monitor which did not show any atrial fibrillation. She was told she has a minor heart valve leakage which should not give her a problem for many years. Patient remains on both aspirin and Plavix. She states her neurologist shoulder she could drop the Plavix but she was waiting to check with Cardiology before stopping it. She has no significant smoking history. Head CT at outside hospital did not show any acute findings. Her CTA was normal except for small left thyroid nodule. Labs showed WBC 4.7, hemoglobin 14.4, hematocrit 41.9, platelets 220. Sodium 141, potassium 3.7, BUN 15, creatinine 0.7, glucose 109, calcium 9.4, INR 1.1. EKG showed sinus rhythm with 1st degree AV block and left anterior fascicular block. Patient was transferred for direct admission to [facility] due to temporary unavailability of MRI imaging for workup of possible CVA. Discharge Providers Provider Date of admission: 03/02/20 12:12 Discharge Date: 03/03/20 Primary care physician: Leena Augustin PA-C Discharge provider: Laurent Jauregui MD Summary Hospital Course Discharge Diagnosis: 1. Acute transient ischemic attack Two. Chronic hypertension 3. Hyperlipidemia This is a 64-year-old female with history of hypertension, hyperlipidemia, prior CVA presenting with acute disequilibrium lasting for at least several hours. Patient had full resolution of symptoms and deficits. Head CT and CTA were unremarkable. Brain MR did not show acute CVA. She does have chronic small- vessel ischemic change. Patient had recent change in his antihypertensive regimen being switched from lisinopril HCT to losartan HCT with recent rise in her blood pressures. We adjusted her antihypertensive regimen so that she is on a higher dose of losartan HCT, 100-25 mg daily, and continued on metoprolol succinate ER 12.5 mg daily. Her lipid lowering was changed from atorvastatin to rosuvastatin 20 mg daily based on lab results showing LDL above 150. She is continued on aspirin 81 mg daily and clopidogrel 75 mg daily per home routine. Status at Discharge Cognitive/behavioral status at discharge: oriented Functional status at discharge: independent ambulation Overall status at discharge: patient is back to baseline Time Spent with Patient Time spent: Less than 30 minutes Exam Vital Signs (past 8 hours): Oxygen Delivery Method Room Air Oxygen Flow Rate 0 PFSH Medical History (Updated 03/02/20 @ 17:48 by Laurent Jauregui MD) Bradycardia CVA (cerebrovascular accident) Hypertension Hypertension Surgical History History of thyroidectomy History of tonsillectomy Family History Mother Post-menopausal Breast cancer Sister Melanoma Social History household members: other Smoking Status: Never smoker alcohol intake: current Discharge Plan Discharge Plan Patient Disposition: Home Provider Discharge Comment: You were diagnosed with a TIA. I have made changes to your blood pressure and lipid lowering medications as we discussed. Discharge orders & Medications Prescriptions: New rosuvastatin 20 mg tablet 20 mg PO DAILY Qty: 30 RF: 0 losartan-hydrochlorothiazide 100-25 mg tablet 1 tab PO DAILY Qty: 30 RF: 0 Continued clopidogrel 75 mg tablet 75 mg PO DAILY RF: 0 aspirin 81 mg tablet,delayed release (DR/EC) 81 mg PO DAILY RF: 0 metoprolol succinate 25 mg tablet extended release 24 hr 12.5 mg PO DAILY RF: 0 Discontinued atorvastatin [Lipitor] 20 mg tablet 40 mg PO BEDTIME RF: 0 losartan-hydrochlorothiazide 50-12.5 mg tablet 1 tab PO DAILY RF: 0 Follow up/Referrals: Leena Augustin PA-C [Primary Care Provider] - Diet/Activity/Treatments Diet: Regular Visit Report/Discharge Packet Instructions: DI for Transient Ischemic Attack, Rosuvastatin, Losartan and Hydrochlorothiazide Discharge Data Primary Care Provider: Leena Augustin Attending Provider: Laurent Jauregui VTE Deep Vein Thrombosis/Pulmonary Embolism Present on Admission: No
== END 2020-03-03 12:16 | disposition home or self-care (01) ==
PROVIDERS: Admitting Provider Internal Medicine; Family Provider Internal Medicine; PCP Physician Assistant; Referring Provider Internal Medicine; Visit Provider Internal Medicine
DX: G45.9 Transient cerebral ischemic attack, unspecified (principal); R26.81 Unsteadiness on feet; I10 Essential (primary) hypertension; E78.5 Hyperlipidemia, unspecified; I69.351 Hemiplegia and hemiparesis following cerebral infarction affecting right dominant side; Z79.01 Long term (current) use of anticoagulants; Z79.82 Long term (current) use of aspirin; Z20.822 Contact with and (suspected) exposure to COVID-19
CPT/HCPCS: 70551; G0378; G0379

== ENCOUNTER → 2020-03-24 14:47 | Outpatient (CLI) | payer OTHER, SELFPAY ==
[2020-03-11 15:47] VITALS: BMI 32.8
--- NOTE | 2020-03-24 | DI.US.S_ITS ---
PROCEDURE: US THYROID INDICATIONS: NONTOXIC MULTINODULAR GOITER TECHNIQUE: Real-time scanning was performed of the thyroid gland, with image documentation. COMPARISON: [facility], CT, CT ANGIO HEAD AND NECK, 09/21/2019, 13:26. FINDINGS: Right: Surgically absent. Left: Thyroid lobe measures 6.0 x 2.5 x 2.9 cm, and is homogenous in echotexture. Isthmus: 3.9 mm thick. Nodule number: 1 Location: Left mid Size: 2.4 x 2.0 x 1.6 cm. Composition: Solid Echogenicity: Hyperechoic Shape: wider than tall. Margins: Smooth Echogenic foci: None. Total points: 3 ACR TI-RADS category: Mildly suspicious Nodule number: 2 Location: Left inferior Size: 0.7 x 0.9 x 1.0 cm. Composition: Solid Echogenicity: Hyperechoic Shape: wider than tall. Margins: Smooth Echogenic foci: None Total points: 3 ACR TI-RADS category: Mildly suspicious IMPRESSION: Two mildly suspicious left thyroid nodules as above. Recommend follow-up thyroid ultrasound in 1 year. ACR TI-RADS definitions and recommendations: TI-RADS 1 (benign): 0 points. FNA not needed. TI-RADS 2 (not suspicious): 2 points. FNA not needed. TI-RADS 3 (mildly suspicious): 3 points. * FNA if 2.5 cm or larger, follow up if 1.5 cm or larger (at 1, 3, and 5 years). TI-RADS 4 (moderately suspicious): 4-6 points. * FNA if 1.5 cm or larger, follow up if 1 cm or larger (at 1, 2, 3, and 5 years). TI-RADS 5 (highly suspicious): 7 points or more. * FNA if 1 cm or larger, follow up if 0.5 cm or larger (every year for 5 years). Dictated by: Nico CHAMBERS Interpreted: Anil Corrigan MD on 03/24/2020 at 15:41 Approved by: Anil Corrigan M.D. on 03/24/2020 at 16:19
--- NOTE | 2020-12-02 | PATH_ITS ---
Note [facility] Accession Number: [id number] TESTS RESULT FLAG UNITS REF RANGE LAB Clinician Provided Cytology Information No. of containers..01 Other (Miscellaneous) No. of containers..00 Previously Prepared Cytology Slide Source: L THYROID MID, FNA DIAGNOSIS: L THYROID MID, FNA INCONCLUSIVE. BETHES[place] CATEGORY III. ATYPIA OF UNDETERMINED SIGNIFICANCE. COMMENT: Focal atypia of follicular cells is present including nuclear overlap, nuclear enlargement, slightly opened chromatin and rare nuclear grooves. Pathologist ICD10: R89.6 Signed out by: Amy Reyes MD, Pathologist NPI- [id number] Performed by: Vicente Lagos, Solderer Torch ([facility]) Gross description: 30 CC, PINK, CLEAR Also received 1 RNA vial, 5 quick-stained, and 5 alcohol fixed slides. /[facility] 12/05/2020 [facility] Local FLAG LEGEND: L-Low Normal,H-High Normal,LL-Alert Low,HH-Alert High <-Panic Low,>-Panic High,A-Abnormal,AA-Critical Abnormal Performed at: 01 =[facility] [address], [place] [address] Jose Alejandro Kincaid MD, Performed at: 01 [facility] [address], [place], [place] [id number] MD Jose Alejandro Kincaid MD Phone: [phone]
== END ==
PROVIDERS: Family Provider Internal Medicine; PCP Physician Assistant; Visit Provider Physician Assistant
DX: E04.2 Nontoxic multinodular goiter (principal)
CPT/HCPCS: 76536

== ENCOUNTER → 2020-05-19 16:40 | Outpatient (CLI) | payer OTHER, SELFPAY ==
[2020-03-11 15:47] VITALS: BMI 32.8
[2020-05-19 17:02] LABS: COVID19 -Nasal RAPID Negative (Negative)
== END ==
PROVIDERS: Family Provider Internal Medicine; PCP Physician Assistant; Visit Provider Family Medicine Sleep Medicine
DX: Z20.822 Contact with and (suspected) exposure to COVID-19 (principal)
CPT/HCPCS: 87635; C9803

== ENCOUNTER → 2020-07-05 12:40 | Outpatient (CLI) | payer OTHER, SELFPAY ==
[2020-03-11 15:47] VITALS: BMI 32.8
[2020-07-05 16:01] LABS: COVID19 -Nasal RAPID Negative (Negative)
== END ==
PROVIDERS: Family Provider Internal Medicine; PCP Physician Assistant; Visit Provider Family Medicine Sleep Medicine
DX: Z20.822 Contact with and (suspected) exposure to COVID-19 (principal)
CPT/HCPCS: 87635; C9803

== ENCOUNTER → 2020-12-02 14:27 | Outpatient (CLI) | payer OTHER, SELFPAY ==
[2020-03-11 15:47] VITALS: BMI 32.8
--- NOTE | 2020-12-02 | DI.US.S_ITS ---
PROCEDURE: US FINE NEEDLE ASPIRATION INDICATIONS: Nontoxic single thyroid nodule TECHNIQUE: The indications, alternatives, benefits, risks, and complications of the procedure were explained to the patient. Written informed consent was obtained and placed in the chart. The area of interest was examined sonographically and a site was chosen for ultrasound guided percutaneous sampling. The skin was prepared and draped in the usual fashion, and anesthetized with 1% lidocaine infiltrated from the skin down to the lesion. Multiple passes were then performed, with contents emptied into an appropriate pathology specimen container. A bandage was applied to the area of access at completion of the study. COMPARISON: None. FINDINGS: Location(s) of lesion(s) sampled: Left mid thyroid. [place]: 25 gauge hypodermic needles. Number of passes: 6 Medications: 1% lidocaine for local anaesthesia. Complications: None. IMPRESSION: Successful ultrasound-guided left thyroid nodule fine needle aspiration, with cytology results pending. Dictated by: Robe Swanson M.D. on 12/02/2020 at 16:11 Approved by: Robe Swanson M.D. on 12/02/2020 at 16:13
== END ==
PROVIDERS: Family Provider Internal Medicine; PCP Physician Assistant; Referring Provider Internal Medicine Endocrinology, Diabetes & Metabolism; Visit Provider Internal Medicine Endocrinology, Diabetes & Metabolism
DX: E04.1 Nontoxic single thyroid nodule (principal); I63.9 Cerebral infarction, unspecified; I10 Essential (primary) hypertension
CPT/HCPCS: 10005

== ENCOUNTER → 2021-02-03 15:07 | Outpatient (CLI) | payer OTHER, SELFPAY ==
[2020-03-11 15:47] VITALS: BMI 32.8
--- NOTE | 2021-02-03 | DI.US.S_ITS ---
PROCEDURE: US THYROID INDICATIONS: FOLLOW UP LEFT THYROID NODULES. RIGHT THYROID REMOVED. TECHNIQUE: Real-time scanning was performed of the thyroid gland, with image documentation. COMPARISON: None. FINDINGS: Right: Status post right thyroidectomy. Left: Thyroid lobe measures 2.5 x 3.3 x 6.7 cm, and is homogenous in echotexture. Isthmus: 4 mm thick. Nodule number: 1 Location: Left mid thyroid Size: 2.3 x 1.1 x 1.6 cm, not significantly changed from prior study. Composition: Solid Echogenicity: Hyperechoic Shape: Wider than tall Margins: Smooth Echogenic foci: None Total points: 2 ACR TI-RADS category: Mildly suspicious on the basis of imaging features. Nodule number: 2 Location: Left inferior thyroid Size: 0.8 x 0.9 x 0.6 cm not significantly changed from 0.7 x 1.0 x 0.9 cm on the prior study. Composition: Solid Echogenicity: Hyperechoic Shape: Wider than tall Margins: Smooth Echogenic foci: None Total points: 2 ACR TI-RADS category: Mildly suspicious IMPRESSION: Mildly suspicious left thyroid lobe nodules are not significantly changed in size from previous study, the larger which underwent FNA on 12/02/2020. Please see pathology results. ACR TI-RADS definitions and recommendations: TI-RADS 1 (benign): 0 points. FNA not needed. TI-RADS 2 (not suspicious): 2 points. FNA not needed. TI-RADS 3 (mildly suspicious): 3 points. * FNA if 2.5 cm or larger, follow up if 1.5 cm or larger (at 1, 3, and 5 years). TI-RADS 4 (moderately suspicious): 4-6 points. * FNA if 1.5 cm or larger, follow up if 1 cm or larger (at 1, 2, 3, and 5 years). TI-RADS 5 (highly suspicious): 7 points or more. * FNA if 1 cm or larger, follow up if 0.5 cm or larger (every year for 5 years). Dictated by: Dylan Black M.D. on 02/03/2021 at 16:51 Approved by: Dylan Black M.D. on 02/03/2021 at 16:57
--- NOTE | 2021-02-03 | DI.MG.S_ITS ---
BILATERAL DIGITAL SCREENING MAMMOGRAM 3D/2D WITH CAD: 02/03/2021 CLINICAL: Routine screening. Family history of breast cancer. Comparison is made to exams dated: 08/17/2016 mammogram, 08/03/2016 mammogram, and 12/27/2006 mammogram - [facility]. The tissue of both breasts is heterogeneously dense. This may lower the sensitivity of mammography. Current study was also evaluated with a Computer Aided Detection (CAD) system. No significant masses, calcifications, or other findings are seen in either breast. There has been no significant interval change. IMPRESSION: NEGATIVE There is no mammographic evidence of malignancy. A 1 year screening mammogram is recommended. This exam was interpreted at Station ID: [id number]. NOTE: For mammograms, a report in lay terms will be sent to the patient. Approximately 15% of breast malignancies will not be visualized mammographically. In the management of a palpable breast mass, a negative mammogram must not discourage biopsy of a clinically suspicious lesion. Electronically Signed By: Ron mejia/rodríguez:02/03/2021 16:35:45 letter sent: Normal Exam ACR BI-RADS Category 1: Negative [id number]
== END ==
PROVIDERS: Family Provider Internal Medicine; PCP Family Medicine; Referring Provider Student in an Organized Health Care Education/Training Program; Visit Provider Student in an Organized Health Care Education/Training Program
DX: E04.2 Nontoxic multinodular goiter (principal); Z12.31 Encounter for screening mammogram for malignant neoplasm of breast; Z80.3 Family history of malignant neoplasm of breast
CPT/HCPCS: 76536; 77063; 77067

== ENCOUNTER 2021-07-28 21:23 | Observation (INO) | payer OTHER, SELFPAY ==
[2020-03-11 15:47] VITALS: BMI 32.8
--- NOTE | 2021-07-28 | DI.ECHO.S_ITS ---
[place] [facility]---------+ [facility] +---------+ : : [address] : : : : [id number] : : : : Phone: [phone] Echocardiogram Report + :Name: SHAHBAZ RESTREPO Study Date: 07/29/2021 Height: 66 in : :[facility] ReadingLocation: Weight: 210 lb : : Gender: Female BSA: 2.0 m2 : :: 1955 Age: 66 yrs BP: 140/69 mmHg: :Reason For Study: STROKE : :Ordering Physician: German, : :Tyrese Performed By: Tim Frank : :Referring: Tyrese Porter : + Interpretation Summary The left ventricle is normal in size and wall thickness. Left ventricular systolic function is normal. The ejection fraction is estimated to be 60-65%. There are no focal wall motion abnormalities. Diastolic parameters suggest probable normal left ventricular diastolic function and normal filling pressures. The right ventricle is normal in size and function. Pulmonary artery pressures cannot be estimated because of the lack of a measurable TR jet velocity. Both atria are normal in size. The interatrial septum grossly appears intact with no obvious evidence for an atrial septal defect. Injection of contrast documented no interatrial shunt. There is mild aortic regurgitation. There is no other significant valvular heart disease. The aortic root is normal size. Procedure: A two-dimensional transthoracic echocardiogram with color flow and Doppler was performed. The study quality was technically adequate. Comparison is made with the echocardiogram of 10/12/2019. A saline contrast injection was performed to assess for cardiac shunting. The patient was in sinus bradycardia with heart rates between 46-56 bpm during the exam. Left Ventricle: The left ventricle is normal in size and wall thickness. Left ventricular systolic function is normal. The ejection fraction is estimated to be 60-65%. There are no focal wall motion abnormalities. Diastolic parameters suggest probable normal left ventricular diastolic function and normal filling pressures. Right Ventricle: The right ventricle is normal in size and function. Atria: Both atria are normal in size. The interatrial septum grossly appears intact with no obvious evidence for an atrial septal defect. Injection of contrast documented no interatrial shunt. Mitral Valve: There is mild mitral annular calcification. There is trace mitral regurgitation. Aortic Valve: The aortic valve is normal in structure and function. There is mild aortic regurgitation. Tricuspid Valve: The tricuspid valve is normal in structure and function. There is trace tricuspid regurgitation. Pulmonary artery pressures cannot be estimated because of the lack of a measurable TR jet velocity. Pulmonic Valve: The pulmonic valve is not well visualized. There is no other significant valvular heart disease. Great Vessels: The aortic root is normal size. The ascending aorta could not be visualized. The IVC is of normal diameter and collapses greater than 50% with a sniff. This suggests a low right atrial pressure of 3 mm Hg. Pericardium/ Pleura There is no pericardial effusion. There is no pleural effusion. MMode/2D Measurements & Calculations LVIDd: 5.3 cm LVOT diam: 2.3 cm LVIDs: 3.1 cm Ao root diam: 3.6 cm FS: 42.4 % IVSd: 1.0 cm LVPWd: 0.96 cm LV wayne. diameter/BSA (cm/m^2): 2.6 LV sys. diameter/BSA (cm/m^2): 1.5 LA A2 area: 19.6 cm2 RA long axis: 5.6 cm LA A4 area: 25.8 cm2 RA area: 16.6 cm2 LA length (vol): 6.4 cm RA vol: 41.9 ml LA vol: 67.2 ml RA : 20.5 ml/m2 LA vol index: 32.9 ml/m2 TAPSE: 2.3 cm Doppler Measurements & Calculations LVOT Max Wyatt: 104.8 cm/sec MV E max wyatt: 105.7 cm/sec LV V1 max P.4 mmHg MV A max wyatt: 69.6 cm/sec LV V1 VTI: 23.8 cm MV E/A: 1.5 AI P1/2t: 1027 msec Med Peak E' Wyatt: 6.9 cm/sec AI dec slope: 116.6 cm/sec2 E/E' med: 15.2 Lat Peak E' Wyatt: 9.7 cm/sec E/E' lat: 10.9 E/e' average: 13.1 MV dec time: 0.21 sec SV(LVOT): 100.3 ml Reading Physician:12:21 PM
[2021-07-28 21:33] VITALS: BP 158/69; PULSE 57; RESP 15; TEMP 36.6; O2SAT 100; BMI 33.9
[2021-07-28] MEDS: SODIUM CHLORIDE 0.9% 1,000 ML 1000 ML IV (21:48)
--- NOTE | 2021-07-28 21:52 | ED_ITS ---
HPI - General Adult General Chief complaint: Weakness Stated complaint: Feels drunk, dry mouth, trouble walking Time Seen by Provider: 07/28/21 21:32 Source: patient and family Mode of arrival: Wheelchair History of Present Illness HPI narrative: Patient is a 66-year-old female who is here with her daughter for evaluation symptoms that she states started this evening. She states that she thinks at about 1900 hours she was sitting on the couch watching TV when she states that she started to not feel very well. It was difficult for her to describe it she describes it as feeling like she is drunk. She had no weakness. No headache. No vision problems. She states that she tried to stand up and she was very unsteady on her feet. There was also some concern about her slurring her words. She has family at bedside he states that they talked to her about 1930 the thought that she was slurring her words. They do think that that has greatly improved since arrival here to the ER. Several years ago patient states she had a TIA/CVA. She states that she was having symptoms similar to today but not as bad. The MRI showed no signs of a stroke however she did have residual right- sided issues for several months afterwards. She has a history of high blood pressure and high cholesterol and has been taking all of her medications as directed. Related Data Home Medications Medication Instructions Recorded Confirmed clopidogrel 75 mg tablet 75 mg PO DAILY 03/03/20 07/03/21 metoprolol succinate 25 mg 12.5 mg PO DAILY 03/03/20 07/03/21 tablet,extended release 24 hr cholecalciferol (vitamin D3) 125 125 mcg PO DAILY 07/03/21 07/03/21 mcg (5,000 unit) capsule krill oil 35mg PO 07/03/21 turmeric root extract 500 mg 1,500 mg PO DAILY 07/03/21 07/03/21 capsule Previous Rx's Medication Instructions Recorded losartan 100 1 tab PO DAILY #30 tabs 03/03/20 mg-hydrochlorothiazide 25 mg tablet rosuvastatin 20 mg tablet 20 mg PO DAILY #30 tabs 03/03/20 Allergies Allergy/AdvReac Type Severity Reaction Status Date / Time No Known Drug Allergies Allergy Verified 07/03/21 16:16 Review of Systems Review of Systems ROS Unobtainable: All systems reviewed & are unremarkable except as noted in HPI and below Patient History Medical History Bradycardia CVA (cerebrovascular accident) Hyperlipidemia Hypertension Nocturnal hypoxemia (~04/2020) Obesity (BMI 30-39.9) (Unknown) Obstructive sleep apnea, adult (~05/2020) Surgical History H/O partial thyroidectomy Hx of tonsillectomy Family History Mother Post-menopausal Breast cancer Sister Melanoma Social History household members: other Smoking Status: Former smoker alcohol intake: current Smoking Status: Former smoker alcohol intake frequency: a few times a month Substance Use Type: does not use Exam Initial Vital Signs Initial Vital Signs: Vital Signs Temperature 97.9 F 07/28/21 21:33 Pulse Rate 57 L 07/28/21 21:33 Respiratory Rate 15 07/28/21 21:33 Blood Pressure 158/69 H 07/28/21 21:33 Pulse Oximetry 100 07/28/21 21:33 Oxygen Delivery Method 07/28/21 21:33 Const General: cooperative, comfortable and well developed [facility] Head: normal to inspection and normocephalic Face and sinus: normal facial exam Mouth: oral mucosae normal Eyes General: Yes appearance normal, both eyes and all related structures Pupils: PERRL Resp Effort & Inspection: normal respiratory effort Auscultation: clear to auscultation bilaterally Cardio Rate: bradycardic Rhythm: regular rhythm GI Inspection: normal to inspection Skin General: no rashes or lesions noted Neuro General: patient alert, patient awake, patient oriented x3 and moves all extrem ities Cranial Nerves: CN's II-XI intact bilaterally, PERRL, facial strength normal and tongue midline Cognition: normal cognition Speech: speech normal Gait: ataxic Motor: muscle tone normal throughout, strength 5/5 throughout, no pronator drift and muscle tone abnormal Sensory Exam: no sensory deficits noted Coordination: [id number]-[id number] test normal and [id number]-yx-[id number] test normal Extrem General: normal to inspection and capillary refill normal Psych Appearance: grossly normal and well kempt Scores GCS Anai coma scale eye opening: Spontaneous Hart[place] coma scale verbal response: Orientated [place] coma scale motor response: Obey commands Hartland coma scale total score: 15 NIH Stroke Scale Level of Conciousness: Alert, keenly responsive Ask month/age: Answers both questions correctly. Open/close eyes, close hand: Performs both tasks correctly Best gaze horizontal: Normal Visual dover: No visual loss Facial palsy: Normal symetrical movement Left arm drift: No drift for full 10 sec Right arm drift: No drift for full 10 sec Left leg drift: No drift for full 5 sec Right leg drift: No drift for full 5 sec Limb ataxia: Absent Sensory on face/arms/legs: Normal, no sensory loss Best language: No aphasia, normal Dysarthria: Normal Extinction or inattention: No abnormality Total NIH Stroke scale score: 0 Course Orders Ordered: ED Orders 07/28/21 21:38 Basic Metabolic Panel Stat Complete Blood Count AUTO DIFF Stat Ethanol (ETOH) Stat Partial Thromboplastin Time Stat Prothrombin Time INR Stat Troponin & CK Cardiac Panel Stat 07/28/21 21:53 CT head/brain wo con Stat 07/28/21 21:54 CT angio head and neck Stat EKG-12 Lead Stat 07/28/21 23:12 COVID19 -Nasal RAPID/Pre-Proc Stat Acetaminophen (Acetaminophen 325 Mg Tablet) 650 mg PO Q6HR PRN PRN Reason: Fever Aspirin (Aspirin Ec 325 Mg Tablet) 325 mg PO DAILY [facility] Last Admin: 07/29/21 00:45 Dose: 325 mg Documented By: DAYNA Atorvastatin Calcium (Atorvastatin 20 Mg Tablet) 80 mg PO BEDTIME [facility] Last Admin: 07/29/21 00:45 Dose: 80 mg Documented By: DAYNA Hydralazine HCl (Hydralazine 20 Mg/Ml Vial) 10 mg IV Q6HR PRN PRN Reason: Hypertension Naloxone HCl (Naloxone 0.4 Mg/Ml Vial) 0.2 mg IV Q2MIN PRN PRN Reason: Opiate Reversal Ondansetron HCl (Ondansetron 4 Mg/2 Ml Inj) 4 mg IV Q8HR PRN PRN Reason: Nausea And Vomiting Discontinued Medications Acetaminophen (Acetaminophen 325 Mg Tablet) 650 mg PO Q6HR PRN PRN Reason: pain/FEVER Sodium Chloride (Normal Saline 0.9%) 1,000 mls @ 1,000 mls/hr IV BOLUS ONE Stop: 07/28/21 22:39 Last Infusion: 07/28/21 23:14 Dose: 0 mls/hr Documented By: Admin: 07/28/21 21:48 Dose: 1,000 mls/hr Documented By: OW Vital Signs Vital signs: Vital Signs - 8 hr 07/28/21 21:33 Temperature 97.9 F Pulse Rate 57 L Respiratory Rate 15 Blood Pressure 158/69 H Pulse Oximetry 100 Oxygen Delivery Method Room Air Medical Decision Making Lab Data Lab results reviewed: Yes I reviewed the patient's lab results. Result diagrams: 07/28/21 21:38 07/28/21 21:38 Labs: Lab Results 07/28/21 07/28/21 07/28/21 Range/Units 21:38 21:38 21:38 WBC 5.5 (4.5-11.0) X10^3/uL RBC 4.22 (4.0-5.2) X10^6/uL Hgb 13.1 (12.0-16.0) g/dL Hct 37.5 (36-46) % MCV 88.9 (80-100) fL MCH 31.0 (26-34) PG MCHC 34.8 (30-36) % RDW 13.1 (11.6-14.8) % Plt Count 249 (150-400) X10^3/uL Neut % (Auto) 52.6 (50-75) % Lymph % (Auto) 31.2 (25-40) % Hutch[place] % (Auto) 10.7 (3-14) % Eos % (Auto) 4.3 H (2-4) % Baso % (Auto) 1.2 (0-2) % Neut # (Auto) 2900 (3789-7768) /uL Lymph # (Auto) 1700 (3525-6037) /uL [place]inson # (Auto) 600 (0-900) /uL Eos # (Auto) 200 (0-450) /uL Baso # (Auto) 100 (0-100) /uL PT (10.1-12.7) SECONDS INR (0.9-1.3) APTT (26.4-36.2) SECONDS Sodium 138 (137-145) mmol/L Potassium 3.3 L (3.4-5.1) mmol/L Chloride 102 (98-107) mmol/L Carbon Dioxide 31 (22-32) mmol/L BUN 18 H (7-17) mg/dL Creatinine 0.75 (0.52-1.04) mg/dL Estimated GFR > 60 (>60) mL/min BUN/Creatinine Ratio 24.0 H (6-22) Glucose 113 H (80-110) mg/dL Calcium 9.3 (8.4-10.2) mg/dL Total Creatine Kinase (30-135) U/L CK-MB (CK-2) (<2.37) ng/mL CK-MB (CK-2) Rel Index (1.5-5.0) % Troponin I (0.01-0.034) ng/mL Ethyl Alcohol < 10 ( - 10) mg/dL SARS-CoV-2 (PCR) (Negative) 07/28/21 07/28/21 07/28/21 Range/Units 21:38 21:38 23:12 WBC (4.5-11.0) X10^3/uL RBC (4.0-5.2) X10^6/uL Hgb (12.0-16.0) g/dL Hct (36-46) % MCV (80-100) fL MCH (26-34) PG MCHC (30-36) % RDW (11.6-14.8) % Plt Count (150-400) X10^3/uL Neut % (Auto) (50-75) % Lymph % (Auto) (25-40) % Hutchinson % (Auto) (3-14) % Eos % (Auto) (2-4) % Baso % (Auto) (0-2) % Neut # (Auto) (2328-1121) /uL Lymph # (Auto) (8564-1439) /uL Hutchinson # (Auto) (0-900) /uL Eos # (Auto) (0-450) /uL Baso # (Auto) (0-100) /uL PT 10.8 (10.1-12.7) SECONDS INR 1.0 (0.9-1.3) APTT 36 (26.4-36.2) SECONDS Sodium (137-145) mmol/L Potassium (3.4-5.1) mmol/L Chloride (98-107) mmol/L Carbon Dioxide (22-32) mmol/L BUN (7-17) mg/dL Creatinine (0.52-1.04) mg/dL Estimated GFR (>60) mL/min BUN/Creatinine Ratio (6-22) Glucose (80-110) mg/dL Calcium (8.4-10.2) mg/dL Total Creatine Kinase 115 (30-135) U/L CK-MB (CK-2) 1.62 (<2.37) ng/mL CK-MB (CK-2) Rel Index 1.4 L (1.5-5.0) % Troponin I < 0.012 (0.01-0.034) ng/mL Ethyl Alcohol ( - 10) mg/dL SARS-CoV-2 (PCR) Negative (Negative) Point of Care Testing Glucose POC 148 Point of care testing: Point of Care Testing Glucose POC [address] scan - head: Radiologist's Impression: [address] [address] [address] Scan Report Signed Patient: Christy Jimenez MR#: [id number] : 1955 Acct:[id number] Age/Sex: 66 / F Date of Service: 07/28/21 Loc: ED Accession Number: [id number] ?? Procedure: CT head/brain wo con Ordering Provider: Ramo Ramon D.O. PROCEDURE:? CT HEAD/BRAIN WO CON ? INDICATIONS:? Ataxia and dysarthria ? TECHNIQUE:? Noncontrast 4.5 mm thick angled axial sections acquired from the foramen magnum to the vertex, with coronal and sagittal reformats.? For radiation dose reduction, the following was used:? automated exposure control, adjustment of mA and/or kV according to patient size.? ? COMPARISON:? [facility], CT, CT HEAD/BRAIN WO CON, 09/21/2019, 11:05. ? FINDINGS:? Image quality:? Excellent.? ? CSF spaces:? Basal cisterns are patent.? No extra-axial fluid collections.? Ventricles are normal in size and shape.? ? Brain:? No intracranial hemorrhage, mass, or mass effect.? Koch-white matter interface appears preserved.? ? Skull and face:? Calvarium and visualized facial bones are intact, without suspicious lesions.? ? Sinuses:? Visualized sinuses and mastoids are clear.? ? IMPRESSION:? ? 1. No acute intracranial abnormality.? ? ? Dictated by: Jose Alejandro Cabrera M.D. on 07/28/2021 at 22:28 ? ? Approved by: Jose Alejandro Cabrera M.D. on 07/28/2021 at 22:29? CTA - brain/neck: Radiologist's Impression: [address] [address] [address] Scan Report Signed Patient: Christy Jimenez MR#: [id number] : 1955 Acct:[id number] Age/Sex: 66 / F Date of Service: 07/28/21 Loc: ED Accession Number: [id number] ?? Procedure: CT angio head and neck Ordering Provider: Ramo Ramon D.O. PROCEDURE:? CT ANGIO HEAD AND NECK ? INDICATIONS:? Ataxia and dysarthria ? TECHNIQUE:? After the administration of intravenous contrast, 1 mm thick sections acquired from the aortic arch through the Evans of Villalobos.? Post-contrast 4.5 mm thick sections then re-acquired from the foramen magnum to the vertex.? 3-dimensional zyjldfg-ybwscsxzk-dsqnkhzoyc (MIP) and/or volume rendering reformats were acquired of the central intracranial vasculature and neck separately. For radiation dose reduction, the following was used:? automated exposure control, adjustment of mA and/or kV according to patient size.? ? COMPARISON:? [facility], , US THYROID, 02/03/2021, 15:30. ? [facility], CT, CT ANGIO HEAD AND NECK, 09/21/2019, 13:26. ? FINDINGS:? Image quality:? Excellent.? ? BRAIN:? CSF spaces:? Basal cisterns are patent.? No extra-axial fluid collections.? Ventricles are normal in size and shape.? ? Brain:? No intracranial hematoma collections, mass, or mass effect.? Koch-white matter interface appears preserved.? No abnormal intracranial enhancement.? ? Skull and face:? Calvarium and facial bones appear intact, without suspicious lesions.? Orbits appear normal.? ? Sinuses:? Sinuses and mastoids are clear.? ? HEAD CT ANGIOGRAPHY:? Anterior circulation:? Intracranial internal carotid arteries are normal in size and appear patent bilaterally.? There is mild atherosclerotic calcification along the cavernous segments of the internal carotid arteries.? The paired anterior cerebral arteries appear patent bilaterally.? The anterior communicating artery also appears patent. The middle cerebral arteries appear patent bilaterally.? No high-grade stenosis, occlusion, or filling defects.? No cerebral aneurysms identified. ? Posterior circulation:? Visualized portions of the vertebral arteries demonstrate a left dominant vertebrobasilar system with a diminutive right vertebral artery.? These join to form a patent basilar artery The posterior cerebral arteries appears patent bilaterally.? No high-grade stenosis, occlusion, or filling defects.? No cerebral aneurysms identified. ? NECK CT ANGIOGRAPHY:? Carotid system:? The great vessels demonstrate a conventional anatomy as they arise from the aortic arch.? The origins of the common carotid arteries appear patent.? The common carotid arteries demonstrate normal caliber and courses.? There is partially calcified plaque at the left carotid bifurcation and carotid bulb.? There is associated mild narrowing of less than 50% in the left carotid bulb.? The internal carotid arteries demonstrate normal calibers and courses.? ? Posterior circulation:? The origins of the vertebral arteries both appear patent.? There is a left dominant vertebrobasilar system with a diminutive right vertebral artery.? These appear patent throughout their course.? They join to form a patent basilar artery.? ? ? Soft tissues:? Visualized neck soft tissues heterogeneous enlargement of the left thyroid lobe.? The right lobe appears absent.? There is a hypoattenuating nodule measuring up to approximately 2.1 cm redemonstrated. ? Bones:? No suspicious bony lesions.? Visualized cervical spine demonstrates moderate degenerative disc disease in the lower cervical spine. ? ? IMPRESSION:? ? 1. No high-grade stenosis or occlusion of the central intracranial arteries. ? 2. No high-grade stenosis or occlusion of the head and neck arteries.? There is mild narrowing of less than 50% in the left carotid bulb. ? 3. Heterogeneous enlargement of the left thyroid lobe with multiple nodules redemonstrated.? ? Any quantitative measurements of stenosis were performed using NASCET criteria.? ? ? Dictated by: Jose Alejandro Cabrera M.D. on 07/28/2021 at 22:32 ? ? Approved by: Jose Alejandro Cabrera M.D. on 07/28/2021 at 22:39?? ECG Data Attestation: I personally reviewed and interpreted this ECG as follows: Interpretation: Sinus bradycardia Ventricular rate of 53 First-degree AV a DC interval 276 milliseconds Left axis deviation Normal QRS Normal QTC No ST T wave changes MDM Narrative Medical decision making narrative: Stay difficult for patient to describe her symptoms. She has NIH score of 0. Is bradycardic on her EKG otherwise labs were normal. Patient has an NIH score 0 however when she stood at bedside she had a very difficult time standing. Had a positive Romberg test to the right. Head CT unremarkable. CTA of head and neck were unremarkable. I did discuss the case with Dr. Barrera with the stroke team at [facility] he did review the patient's radiologic studies. He recommended against tPA. There is no indication for interventional radiology intervention. Given the patient's presenting symptoms she does require admission in the hospital for further evaluation and treatment. Did discuss this her and she expressed understanding. Discussed case with [facility] spitalist who will admit for further evaluation. Discharge Plan Departure Patient Disposition: Admitted as Observation Clinical Impression: Ataxia Admit Date/Time: 07/28/21 23:25 Admit Provider: Tyrese Porter
--- NOTE | 2021-07-28 21:53 | DI.CT.S_ITS ---
PROCEDURE: CT HEAD/BRAIN WO CON INDICATIONS: Ataxia and dysarthria TECHNIQUE: Noncontrast 4.5 mm thick angled axial sections acquired from the foramen magnum to the vertex, with coronal and sagittal reformats. For radiation dose reduction, the following was used: automated exposure control, adjustment of mA and/or kV according to patient size. COMPARISON: [facility], CT, CT HEAD/BRAIN WO CON, 09/21/2019, 11:05. FINDINGS: Image quality: Excellent. CSF spaces: Basal cisterns are patent. No extra-axial fluid collections. Ventricles are normal in size and shape. Brain: No intracranial hemorrhage, mass, or mass effect. Koch-white matter interface appears preserved. Skull and face: Calvarium and visualized facial bones are intact, without suspicious lesions. Sinuses: Visualized sinuses and mastoids are clear. IMPRESSION: 1. No acute intracranial abnormality. Dictated by: Jose Alejandro Cabrera M.D. on 07/28/2021 at 22:28 Approved by: Jose Alejandro Cabrera M.D. on 07/28/2021 at 22:29
--- NOTE | 2021-07-28 21:54 | DI.CT.S_ITS ---
PROCEDURE: CT ANGIO HEAD AND NECK INDICATIONS: Ataxia and dysarthria TECHNIQUE: After the administration of intravenous contrast, 1 mm thick sections acquired from the aortic arch through the [place]. Post-contrast 4.5 mm thick sections then re-acquired from the foramen magnum to the vertex. 3-dimensional btnxngv-rxbdtuclz-xknhmdtsui (MIP) and/or volume rendering reformats were acquired of the central intracranial vasculature and neck separately. For radiation dose reduction, the following was used: automated exposure control, adjustment of mA and/or kV according to patient size. COMPARISON: [facility], US, US THYROID, 02/03/2021, 15:30. [facility], CT, CT ANGIO HEAD AND NECK, 09/21/2019, 13:26. FINDINGS: Image quality: Excellent. BRAIN: CSF spaces: Basal cisterns are patent. No extra-axial fluid collections. Ventricles are normal in size and shape. Brain: No intracranial hematoma collections, mass, or mass effect. Koch-white matter interface appears preserved. No abnormal intracranial enhancement. Skull and face: Calvarium and facial bones appear intact, without suspicious lesions. Orbits appear normal. Sinuses: Sinuses and mastoids are clear. HEAD CT ANGIOGRAPHY: Anterior circulation: Intracranial internal carotid arteries are normal in size and appear patent bilaterally. There is mild atherosclerotic calcification along the cavernous segments of the internal carotid arteries. The paired anterior cerebral arteries appear patent bilaterally. The anterior communicating artery also appears patent. The middle cerebral arteries appear patent bilaterally. No high-grade stenosis, occlusion, or filling defects. No cerebral aneurysms identified. Posterior circulation: Visualized portions of the vertebral arteries demonstrate a left dominant vertebrobasilar system with a diminutive right vertebral artery. These join to form a patent basilar artery The posterior cerebral arteries appears patent bilaterally. No high-grade stenosis, occlusion, or filling defects. No cerebral aneurysms identified. NECK CT ANGIOGRAPHY: Carotid system: The great vessels demonstrate a conventional anatomy as they arise from the aortic arch. The origins of the common carotid arteries appear patent. The common carotid arteries demonstrate normal caliber and courses. There is partially calcified plaque at the left carotid bifurcation and carotid bulb. There is associated mild narrowing of less than 50% in the left carotid bulb. The internal carotid arteries demonstrate normal calibers and courses. Posterior circulation: The origins of the vertebral arteries both appear patent. There is a left dominant vertebrobasilar system with a diminutive right vertebral artery. These appear patent throughout their course. They join to form a patent basilar artery. Soft tissues: Visualized neck soft tissues heterogeneous enlargement of the left thyroid lobe. The right lobe appears absent. There is a hypoattenuating nodule measuring up to approximately 2.1 cm redemonstrated. Bones: No suspicious bony lesions. Visualized cervical spine demonstrates moderate degenerative disc disease in the lower cervical spine. IMPRESSION: 1. No high-grade stenosis or occlusion of the central intracranial arteries. 2. No high-grade stenosis or occlusion of the head and neck arteries. There is mild narrowing of less than 50% in the left carotid bulb. 3. Heterogeneous enlargement of the left thyroid lobe with multiple nodules redemonstrated. Any quantitative measurements of stenosis were performed using NASCET criteria. Dictated by: Jose Alejandro Cabrera M.D. on 07/28/2021 at 22:32 Approved by: Jose Alejandro Cabrera M.D. on 07/28/2021 at 22:39
[2021-07-28 21:56] LABS: Add Manual Diff / Slide Review NO; Basophils Absolute Auto 100 /uL (0-100); Basophils Percent Auto 1.2 % (0-2); Blood Urea Nitrogen 18 mg/dL (7-17); Calcium 9.3 mg/dL (8.4-10.2); Carbon Dioxide 31 mmol/L (22-32); Chloride 102 mmol/L (98-107); Eosinophils Absolute Auto 200 /uL (0-450); Eosinophils Percent Auto 4.3 % (2-4); Estimated Glomerular Filt Rate > 60 mL/min (>60); Glucose 113 mg/dL (80-110); HEMOLYSIS < 15 (0-50); Hematocrit 37.5 % (36-46); Hemoglobin 13.1 g/dL (12.0-16.0); Lymphocytes Absolute Auto 1700 /uL (1100-4500); Lymphocytes Percent Auto 31.2 % (25-40); Mean Corpuscular HGB Conc 34.8 % (30-36); Mean Corpuscular Volume 88.9 fL (80-100); Monocytes Absolute Auto 600 /uL (0-900); Monocytes Percent Auto 10.7 % (3-14); Neutrophils Absolute Auto 2900 /uL (1500-7000); Neutrophils Percent Auto 52.6 % (50-75); Platelet Count 249 X10^3/uL (150-400); Potassium 3.3 mmol/L (3.4-5.1); Red Blood Cell Count 4.22 X10^6/uL (4.0-5.2); Red Cell Distribution Width 13.1 % (11.6-14.8); Sodium 138 mmol/L (137-145); White Blood Cell Count 5.5 X10^3/uL (4.5-11.0)
[2021-07-28 22:04] LABS: Prothrombin Time 10.8 SECONDS (10.1-12.7)
[2021-07-28 22:05] LABS: Ethanol (ETOH) < 10 mg/dL
[2021-07-28 22:07] LABS: PTT Partial Thromboplastin Tim 36 SECONDS (26.4-36.2)
[2021-07-28 22:11] LABS: Creatine Kinase 115 U/L (30-135)
[2021-07-28 22:24] LABS: Troponin I < 0.012 ng/mL (0.01-0.034)
[2021-07-28 22:26] LABS: CKMB % Relative Index 1.4 % (1.5-5.0); Creatine Kinase MB 1.62 ng/mL (<2.37)
[2021-07-28 23:30] VITALS: BP 146/70; PULSE 59; RESP 17; O2SAT 95
[2021-07-28 23:30] LABS: COVID19 -Nasal RAPID Negative (Negative)
--- NOTE | 2021-07-28 23:41 | DI.MRI.S_ITS ---
PROCEDURE: MR HEAD/BRAIN WO CON INDICATIONS: Unsteady Gait TECHNIQUE: Non-contrast axial T1 spin echo, axial T2 fast spin echo, sagittal and axial FLAIR, coronal T2 fast spin echo, axial gradient echo, axial diffusion and ADC through the brain. COMPARISON: [facility], MR, MR STROKE, 09/21/2019, 14:31. [facility], CT, CT ANGIO HEAD AND NECK, 07/28/2021, 21:58. [facility], CT, CT HEAD/BRAIN WO CON, 07/28/2021, 21:58. FINDINGS: Image quality: Excellent. CSF spaces: Ventricles appear symmetric in size and shape. Basal cisterns are patent. No extra-axial fluid collections. Brain: No intracranial bleeds or mass effects. There is cerebral volume loss for age. There are periventricular and deep white matter chronic small vessel ischemic changes. Brainstem appears normal. Diffusion-weighted images show no acute ischemic insults. No chronic ischemic insults. Normal intravascular flow voids are present. Skull and face: Calvarial bone marrow is normal in signal. Orbits are normal. Sinuses: Mild mucosal thickening is seen within the maxillary sinuses, with minimal mucosal thickening elsewhere within the paranasal sinuses. There is a small amount of right mastoid air cell fluid. No left mastoid air cell fluid can be seen. IMPRESSION: No findings of acute or subacute infarction can be seen. Mild paranasal sinus disease and right mastoid air cell fluid incidentally noted. Dictated by: Too Villalobos M.D. on 07/29/2021 at 9:51 Approved by: Too Villalobos M.D. on 07/29/2021 at 9:53
[2021-07-28 23:43] VITALS: BP 127/59; PULSE 96; RESP 18; TEMP 36.7; O2SAT 96
--- NOTE | 2021-07-28 23:53 | PM.HP.1 ---
History of Present Illness History of Present Illness Date Patient Seen: 07/28/21 Date of Onset of Symptoms: 07/28/21 Chief complaint: Feels drunk, dry mouth, trouble walking Narrative: 66-year-old with significant history of hypertension and hyperlipidemia and TIA started having unsteady gait at around 7:00 p.m. today, unable to walk properly, was assessed by her room at around 8:00 p.m. and brought to the ER for further evaluation. Patient says that she started feeling drunk and felt very unsteady while she is walking, just sat on the sofa did not moved to her roommate came. When she tried to get up and walk again felt drunk, brought by her roommate to the ER. In the ER on examination even though NIH score was 0, when ER physician and I try to make her stand, she was swaying to her right side. She denies any other neurological symptoms. She denies any headache, nausea, dizziness, double vision, blurry vision, spinning of the room, tremors, speech difficulties. Her roommate did say that at around 8:00 p.m. she might had some slurred speech but her speech here in the ER seems to be normal and very reasonable conversation. Extensive cerebellar function testing performed in the ER did not show any apparent deficits. After discussion with the ER physician, the restored to the tele Neurology for further recommendations. After further discussion with the tele Neurology, proceeded with no further intervention at this time other than overnight monitoring, tele, MRI, echocardiogram. Patient is asymptomatic at the time I further evaluated in the ER before the transfer to medical floor. She was feeling hungry, a bedside swallow evaluation did not show any apparent deficits. Patient History Medical History Bradycardia CVA (cerebrovascular accident) Hyperlipidemia Hypertension Nocturnal hypoxemia (~04/2020) Obesity (BMI 30-39.9) (Unknown) Obstructive sleep apnea, adult (~05/2020) Surgical History H/O partial thyroidectomy Hx of tonsillectomy Family & Social History Family History Mother Post-menopausal Breast cancer Sister Melanoma Social History: household members other Safety & Behavioral: Feels Safe in Current Yes Environment Tobacco & Substance use: Smoking Status Former smoker alcohol intake current alcohol intake frequency a few times a month Substance Use Type does not use Comment: She has 3 sons. 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 Her roommate is present at bedside. Meds Home Medications and Allergies Home Medications Medication Instructions Recorded Confirmed Type clopidogrel 75 mg tablet 75 mg PO DAILY 03/03/20 07/03/21 History losartan 100 1 tab PO DAILY #30 tabs 03/03/20 07/03/21 Rx mg-hydrochlorothiazide 25 mg tablet metoprolol succinate 25 mg 12.5 mg PO DAILY 03/03/20 07/03/21 History tablet,extended release 24 hr rosuvastatin 20 mg tablet 20 mg PO DAILY #30 tabs 03/03/20 07/03/21 Rx cholecalciferol (vitamin D3) 125 125 mcg PO DAILY 07/03/21 07/03/21 History mcg (5,000 unit) capsule krill oil 35mg PO 07/03/21 History turmeric root extract 500 mg 1,500 mg PO DAILY 07/03/21 07/03/21 History capsule Allergies Allergy/AdvReac Type Severity Reaction Status Date / Time No Known Drug Allergies Allergy Verified 07/03/21 16:16 Review of Systems Review of Systems Narrative: Constitutional, eyes, ENT, cardiovascular, respiratory, GI, musculoskeletal, neurologic, psychiatric, hematologic review of systems done, negative other than as mentioned in HPI. Extensive neurological review of systems performed, did not show any other positive things other than as mentioned in HPI. Exam Vital Signs (past 8 hours): - 07/28/21 21:33 07/28/21 23:30 Temperature 97.9 F Pulse Rate 57 L 59 L Respiratory Rate 15 17 Blood Pressure 158/69 H 146/70 H Pulse Oximetry 100 95 Oxygen Delivery Method Room Air Room Air Oxygen Delivery Method Room Air Narrative Exam Narrative: Patient is comfortable sitting in the bed, able to follow commands nicely, able to make a reasonable conversation, does not appear to be in distress. Neurological examination extensive, performed. Other than patient's swelling to the right when she is trying to stand, no other neurological signs are positive. Extensive cerebellar function testing performed including finger-nose, gapg-qh-monq, performed, negative. Constitutional, ENT, eyes, cardiovascular, respiratory, GI, musculoskeletal, skin, psychiatric, organ systems examination performed, negative. Objective Labs Result Diagrams: 07/28/21 21:38 07/28/21 21:38 Labs: Laboratory Results - last 24 hr 07/28/21 07/28/21 07/28/21 21:38 21:38 21:38 WBC 5.5 RBC 4.22 Hgb 13.1 Hct 37.5 MCV 88.9 MCH 31.0 MCHC 34.8 RDW 13.1 Plt Count 249 Neut % (Auto) 52.6 Lymph % (Auto) 31.2 [place] % (Auto) 10.7 Eos % (Auto) 4.3 H Baso % (Auto) 1.2 Neut # (Auto) 2900 Lymph # (Auto) 1700 [place] # (Auto) 600 Eos # (Auto) 200 Baso # (Auto) 100 PT INR APTT Sodium 138 Potassium 3.3 L Chloride 102 Carbon Dioxide 31 BUN 18 H Creatinine 0.75 Estimated GFR > 60 BUN/Creatinine Ratio 24.0 H Glucose 113 H Calcium 9.3 Total Creatine Kinase CK-MB (CK-2) CK-MB (CK-2) Rel Index Troponin I Ethyl Alcohol < 10 SARS-CoV-2 (PCR) 07/28/21 07/28/21 07/28/21 21:38 21:38 23:12 WBC RBC Hgb Hct MCV MCH MCHC RDW Plt Count Neut % (Auto) Lymph % (Auto) [place] % (Auto) Eos % (Auto) Baso % (Auto) Neut # (Auto) Lymph # (Auto) [place] # (Auto) Eos # (Auto) Baso # (Auto) PT 10.8 INR 1.0 APTT 36 Sodium Potassium Chloride Carbon Dioxide BUN Creatinine Estimated GFR BUN/Creatinine Ratio Glucose Calcium Total Creatine Kinase 115 CK-MB (CK-2) 1.62 CK-MB (CK-2) Rel Index 1.4 L Troponin I < 0.012 Ethyl Alcohol SARS-CoV-2 (PCR) Negative Assessment & Plan Assessment and plan (1) Ataxia: Status: Acute (2) Obstructive sleep apnea, adult: Status: Chronic (3) Obesity (BMI 30-39.9): Status: Chronic (4) Hyperlipidemia: Status: Acute (5) Bradycardia: Status: Acute (6) Hypertension: Qualifiers: Hypertension type: essential hypertension Qualified Code(s): I10 - Essential (primary) hypertension Status: Acute (7) Slurred speech: Status: Acute Plan Admitted observation status for further evaluation of her neurological symptoms Telemetry monitoring, q.4 hours neuro checks MRI for further evaluation, echocardiogram Discussed the tele Neurology, no further recommendations at this time, not a candidate for tPA Other chronic medical conditions seems to be stable Continue home medications, added aspirin 325 mg, increased statin dose as recommended by tele neurology She already took Plavix yesterday, resume Plavix in the morning depending after reviewing imaging studies DVT, GI prophylaxis addressed Patient is local, care plan extensively discussed, answered all questions Offered to talk to family members, requested only if needed/urgent. Time Spent With Patient Critical Care time: I spent a total of [] minutes of critical care time on this patient's care today; this time is exclusive of procedural time.
[2021-07-28 23:57] VITALS: BMI 34.1
[2021-07-29] MEDS: ASPIRIN EC 325 MG TABLET PO ×2 (00:45→09:26)
[2021-07-29] MEDS: ATORVASTATIN 20 MG TABLET 80 MG PO (00:45)
[2021-07-29 05:40] VITALS: BP 140/69; PULSE 58; RESP 18; TEMP 37; O2SAT 98
[2021-07-29 09:00] VITALS: BP 135/59; PULSE 55; RESP 18; TEMP 36.7; O2SAT 98
--- NOTE | 2021-07-29 09:25 | PT.IIE ---
Current Diagnoses Obesity, unspecified (07/28/21) Hyperlipidemia, unspecified (07/28/21) Obstructive sleep apnea (adult) (pediatric) (07/28/21) Essential (primary) hypertension (07/28/21) Bradycardia, unspecified (07/28/21) Ataxia, unspecified (07/28/21) Slurred speech (07/28/21) Surgical History (Last Reviewed 07/28/21 @ 23:57 by Tyrese Porter MD) H/O partial thyroidectomy Hx of tonsillectomy Medical History (Last Reviewed 07/29/21 @ 03:16 by Ramo Ramon DO) Bradycardia CVA (cerebrovascular accident) Hyperlipidemia Hypertension Nocturnal hypoxemia (~04/2020) Obesity (BMI 30-39.9) (Unknown) Obstructive sleep apnea, adult (~05/2020) Physical Therapy Inpatient Evaluation/Re-Eval M1 PT/OT-IP Prior Functional Status Start: 07/29/21 10:55 Freq: NEEDED Status: Active Protocol: Document 07/29/21 09:25 AB (Rec: 07/29/21 11:05 AB [email or web address]) Medical Review Prior Functional Status Medical History Reviewed Yes Communication able to make needs known Mobility and Gait pt stated that she is independent with all mobilities and ambulation without AD Social History Household Members other Living Arrangements House Number of Floors (Floors) One Floor Number of Stairs To Enter/Railing? 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 M2 PT-IP Current Condition Start: 07/29/21 10:55 Freq: NEEDED Status: Active Protocol: Document 07/29/21 09:25 AB (Rec: 07/29/21 11:05 AB [id number]) Physical Therapy Current Condition Current Condition Evaluation Date 07/29/21 Treatment Diagnosis ataxia; difficulty in walking Onset Date 07/28/21 M3 PT-IP Subjective Start: 07/29/21 10:55 Freq: NEEDED Status: Active Protocol: Document 07/29/21 09:25 AB (Rec: 07/29/21 11:05 AB [email or web address]) Subjective Physical Therapy Visit Type Visit Start Time 09:25 Visit Stop Time 09:45 Total Visit Minutes 20 Number of [facility] Visits 0 Physical Therapy Visit Comments Patient Comments agreeable to do PT Therapy Pain Assessment Pain Present Pain Present Denied Pain M4 PT-IP Mobility and Gait Start: 07/29/21 10:55 Freq: NEEDED Status: Active Protocol: Document 07/29/21 09:25 AB (Rec: 07/29/21 11:05 [email or web address]) PT-Bed Mobility Assessment Supine to Sit Supine to Sit Independent Sit to Supine Sit to Supine Independent PT-Transfer Assessment Sit to and From Stand Sit to and from Stand Independent Transfers Transfer Destination Bed,Chair,Toilet Transfer Technique ambulated Transfer Ability Level of Assist Independent Comments Mobility Comments checked on pt and pt walking out of the bathroom without AD and sat on chair. agreed to do PT. completed sit to stand from chair independent and step transfer to bed independent and completed bed mobility sit<>supine independent. pt ambulated in room ~ 40 ft SBA for safety without AD. presents with slight unsteadiness but without LOB. pt stated that she had a TIA ~ 1 year ago and has had slight unsteadiness with ambulation. completed up/ down step stool holding on to edge of door frame for support SBA. pt agreed that no PT indicated at this time electronic warfare technical waiting to take pt for MRI. pt ambulated to the w/c mod I. Left pt with tech. Gait Assessment Gait Gait Assistance Required: Standby Assistance Distance (Feet) 40 Able to Maintain Weight Bearing Status Yes During Gait Assistive Devices Assistive Device None Orthotic/Prosthetic Devices or Brace: No Gait Deviations General Gait Pattern Decreased Stride Length, Decreased Feet Clearance Stair Climbing Assessment Evaluation Level of Assist On Stairs Standby Assistance Technique/Endurance Stair Climbing Direction Ascend and Descend Stair Climbing Technique Step to Step Number of Steps Climbed 1 Query Text: Stair Climbing Set # Repetitions (reps) 2 PT-Balance Assessment Sitting Balance and Reactions Static Sitting Balance Ability Normal Dynamic Sitting Balance Ability Normal Standing Balance and Reactions Static Standing Balance Ability Good Dynamic Standing Balance Ability Good Device Used without AD M5 PT-IP Objective Assessments Start: 07/29/21 10:55 Freq: NEEDED Status: Active Protocol: Document 07/29/21 09:25 AB (Rec: 07/29/21 11:05 [email or web address]) Orientation Orientation/Cognition Level of Alertness Alert Orientation Name,Age,Birthday,Month,Date, Year,Day of Week,Place, Situation Language Function Ability No Deficits Noted Safety Awareness Understands Safety Issues Memory Description No Deficits Noted Gross Range of Motion Lower Extremity ROM Assessment Within Functional Limits Strength Lower Extremity Strength Assessment Within Functional Limits Sensation Assessment Sensation Gross Sensation WNL Muscle Tone Muscle Tone WNL Yes M6 PT-IP Treatment Start: 07/29/21 10:55 Freq: NEEDED Status: Active Protocol: Document 07/29/21 09:25 AB (Rec: 07/29/21 11:05 AB [email or web address]) Physical Therapy Treatment Education Education Provided Safety M7 PT-IP Assessment and Plan Start: 07/29/21 10:55 Freq: NEEDED Status: Active Protocol: Document 07/29/21 09:25 AB (Rec: 07/29/21 11:05 AB [email or web address]) PT Summary Assessment and Plan Potential Rehabilitation Potential Good Status of Condition at Evaluation Stable Summary Impairments Balance,Gait Assessment Summary PT eval completed. pt is independent with bed mobility, transfers without AD, SBA provided during ambulation for safety but pt able to complete and has no LOB. No further PT indicated at this time. Pt may go home when medically stable. Frequency of Treatment Frequency Of Treatment Discharge Recommendations To Nursing Amount of Assist Needed Standby Assistance Discharge Recommendations PT Discharge Recommendations Home Transportation Needs at Discharge Private Vehicle
--- NOTE | 2021-07-29 10:56 | ST.IPIE ---
Visit Care Team Role Provider Type Alden Trujillo MD Primary Care Provider Non-Staff Specialty: Medical Address: [address] [place], [address] Email: LUIS MANUEL Dent Family Provider Advanced Online User Experience Strategist Specialty: Family Practice Address: [facility], [place], [address] Email: [email or web address] Ramo Ramon DO Emergency Provider Physician Referring Provider Specialty: Emergency Medicine Address: [address] [place] [address], [address] Email: [email or web address] Tyrese Porter MD Admit Provider Physician Attending Provider Specialty: Internal Medicine Address: [address] [place] [address], [address] Email: [email or web address] Diagnoses Obesity, unspecified (07/28/21) Hyperlipidemia, unspecified (07/28/21) Obstructive sleep apnea (adult) (pediatric) (07/28/21) Essential (primary) hypertension (07/28/21) Bradycardia, unspecified (07/28/21) Ataxia, unspecified (07/28/21) Slurred speech (07/28/21) Past Medical History (Last Reviewed 07/29/21 @ 03:16 by Ramo Ramon DO) Bradycardia (Medical) CVA (cerebrovascular accident) (Medical) Hyperlipidemia (Medical) Hypertension (Medical) Nocturnal hypoxemia (Medical ~04/2020) Obesity (BMI 30-39.9) (Medical Unknown) Obstructive sleep apnea, adult (Medical ~05/2020) ST IP Initial Evaluation Report MACHINE SPREADER Motor Speech Evaluation Start: 07/29/21 10:45 Freq: Status: Active Protocol: Document 07/29/21 10:45 MG (Rec: 07/29/21 10:56 MG [id number]) Motor Speech Evaluation Session Time Visit Start Time 10:30 Visit Stop Time 10:45 Total Visit Minutes 1 Setting Setting Acute Care Patient History Source: [employer] [facility] Patient History 66-year-old with significant history of hypertension and hyperlipidemia and TIA started having unsteady gait at around 7:00 p.m. yesterday, unable to walk properly, was assessed by her room at around 8:00 p.m. and brought to the ER for further evaluation. Patient says that she started feeling drunk and felt very unsteady while she is walking, just sat on the sofa did not moved to her roommate came. When she tried to get up and walk again felt drunk, brought by her roommate to the ER. In the ER on examination even though NIH score was 0. She denies any other neurological symptoms. Her roommate did say that at around 8:00 p.m. she might had some slurred speech but her speech here in the ER seems to be normal and very reasonable conversation. Pt was feeling hungry, a bedside swallow evaluation did not show any apparent deficits. Of note, the pt was admitted in September of 2019 with similar symptoms and diagnosed with mild dysarthria and mild expressive language deficits. Mental Status Mental Status Alert,Responsive,Cooperative Subjective Observations Subjective Pt was in chair at bedside when MACHINE SPREADER entered the room. The pt had just gotten back from MRI and agreeable to speech/ language evaluation. Of note, no observable speech errors of asymmetrical oral structures noted. Pt noted she had slurred speech in the evening but around 1AM the pt reported that everything disappeared and she felt back to baseline . The pt noted as well when speaking to her son on the phone this morning, he reported, oh my mom is back. Oral Motor Lips Function WFL Tongue Function WFL Jaw Function WFL Soft Palate Function WFL Respiration/Phonation Phonation Quality WFL Conversation Quality WFL Duration WFL Function WFL Diadochokinetic Rates P^ Quality WFL T^ Quality WFL K^ Quality WFL P^T^K^ Quality WFL Speech Intelligibility Awareness/Strategy Use Findings Details Motor Speech Function WFL Type of Impairment No impairment noted Assessment Details Assessment The pt demonstrates no noted speech errors or swallowing concerns at this time. No oral structure deficits noted in formal OME. Pt reports to not have any concerns or questions at this time. Recommendations Treatment Recommended No Patient/Family Education Education Described results of evaluation,Patient Understanding
--- NOTE | 2021-07-29 11:39 | OT.IP.EVAL ---
Current Diagnoses Obesity, unspecified (07/28/21) Hyperlipidemia, unspecified (07/28/21) Obstructive sleep apnea (adult) (pediatric) (07/28/21) Essential (primary) hypertension (07/28/21) Bradycardia, unspecified (07/28/21) Ataxia, unspecified (07/28/21) Slurred speech (07/28/21) Past Medical History (Last Reviewed 07/29/21 @ 03:16 by Ramo Ramon DO) Bradycardia CVA (cerebrovascular accident) Hyperlipidemia Hypertension Nocturnal hypoxemia (~04/2020) Obesity (BMI 30-39.9) (Unknown) Obstructive sleep apnea, adult (~05/2020) Surgical History (Last Reviewed 07/28/21 @ 23:57 by Tyrese Porter MD) H/O partial thyroidectomy Hx of tonsillectomy Occupational Therapy Inpatient Evaluation/Re-Eval M1 PT/OT-IP Prior Functional Status Start: 07/29/21 10:55 Freq: NEEDED Status: Active Protocol: Document 07/29/21 11:41 [facility] (Rec: 07/29/21 11:53 [facility] [id number]) Medical Review Prior Functional Status Medical History Reviewed Yes Communication able to make needs known Mobility and Gait pt stated that she is independent with all mobilities and ambulation without AD Activities of Daily Living and IADL's completely independent for all ADL and IADL Social History Household Members other Living Arrangements House Number of Floors (Floors) One Floor Number of Stairs To Enter/Railing? 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 M2 OT-IP Current Condition Start: 07/29/21 11:41 Freq: Status: Active Protocol: Document 07/29/21 11:41 [facility] (Rec: 07/29/21 11:53 [facility] [id number]) Occupational Therapy Current Condition Current Condition Evaluation Date 07/29/21 Treatment Diagnosis Ataxia Diagnosis Onset Date 07/28/21 M3 OT- IP Subjective and Pain Start: 07/29/21 11:41 Freq: Status: Active Protocol: Document 07/29/21 11:41 [facility] (Rec: 07/29/21 11:53 [facility] [id number]) OT- Subjective Occupational Therapy Visit Type Type Initial Evaluation Visit Start Time 11:20 Visit Stop Time 11:39 Total Visit Minutes 19 Occupational Therapy Visit Comments Patient Comments Pt agreed to work with OT. Patient/Caregiver Goals TO go home. OT Pain Assessment Pain When Pain Assessed At Rest Pain Present Pain Present Denied Pain M4 OT- IP ADL's Start: 07/29/21 11:41 Freq: Status: Active Protocol: Document 07/29/21 11:41 [facility] (Rec: 07/29/21 11:53 [facility] [id number]) OT [id number] Comments OT Self-Feeding Comments NOt at meal time. OT ADL-Grooming General Evaluation Grooming Ability Independent OT ADL-Oral Care General Eval Oral Care Ability Independent OT ADL-Dressing General Eval Upper Body Dressing Ability Independent OT ADL-Toileting General Evaluation Toileting Ability Independent OT ADL-Bathing Comments OT Bathing Comments Not performed. M5 OT- IP IADL's Start: 07/29/21 11:41 Freq: Status: Active Protocol: Document 07/29/21 11:41 [facility] (Rec: 07/29/21 11:53 [facility] [id number]) OT-Instrumental Activities of Daily Living Home Safety Awareness Awareness of Need for Assistance at Home Good Awareness Ability to Problem Solve Emergency Able to Problem Solve Situations Medication Management Medication Management No Deficits Identified Money Management Money Management No Deficits Identified M6 OT- IP Functional Cognition Start: 07/29/21 11:41 Freq: Status: Active Protocol: Document 07/29/21 11:41 [facility] (Rec: 07/29/21 11:53 [facility] [id number]) Cognitive Factors Limiting Selfcare Function Cognitive Ability Level of Alertness Alert Patient Orientation Name,Age,Birthday,Month,Date, Year,Day of Week,Place, Situation Attention Span Ability Capable of Focused Attention, Capable of Sustained Attention Ability to Follow Commands Able to Follow Multi-Step Commands Safety Awareness No Deficits Noted Problem Solving Ability No deficits Noted Executive Function Ability No Deficits Noted Cognitive Comments Cognitive Assessment Comments Pt scored 64 seconds on [place] Making Part B which implies normal - perfect score and therefore no impairments for visual attention, speed of processing, mental flexibility, and executive functioning. OT- Vision and Hearing OT- Hearing Assessment OT- Hearing Assessment WFL OT- Vision Assessment Visual Acuity Glasses All The Time M7 OT- IP Mobility and Balance Start: 07/29/21 11:41 Freq: Status: Active Protocol: Document 07/29/21 11:41 [facility] (Rec: 07/29/21 11:53 [facility] [id number]) OT-Transfer Assessment Sit to and From Stand Sit to and from Stand Independent Transfers Transfer Ability Independent Technique Transfer Destination Chair,Toilet OT- Gait Assessment Comments Gait Ability Comments Pt independent in the room without a device. OT- Balance Assessment Sitting Balance and Reactions Static Sitting Balance Ability Normal Dynamic Sitting Balance Ability Normal Standing Balance and Reactions Static Standing Balance Ability Good M8 OT- IP Objective Assessments Start: 07/29/21 11:41 Freq: Status: Active Protocol: Document 07/29/21 11:41 [facility] (Rec: 07/29/21 11:53 [facility] [id number]) OT Gross Range of Motion Upper Extremity Range of Motion Assessment Within Functional Limits OT Strength Upper Extremity Strength Assessment Within Functional Limits OT- Coordination Assessment Upper Extremity Finger to Nose Test Within Functional Limits OT-Muscle Tone Assessment Muscle Tone WNL Yes M9 OT- IP Assessment and Plan Start: 07/29/21 11:41 Freq: Status: Active Protocol: Document 07/29/21 11:41 [facility] (Rec: 07/29/21 11:53 [facility] [id number]) OT Summary Assessment and Plan Potential Rehabilitation Potential Excellent Analytic Complexity at Evaluation Low Summary OT Impairments Balance,Functional Mobility Progress Towards Goals Safe For Discharge Assessment Summary Pt low complexity and main barrier is decreased from dynamic balance in which pt states has difficulty with from prior CVA 09/2019 and wanting to do outpt PT again. Suggested for pt to ask her primary doctor for outpt PT orders. Pt able to do her ADl needs and no further needs for OT at this time. Discharge Recommendations OT Discharge Recommendations Home Transportation Needs at Discharge Private Vehicle
--- NOTE | 2021-07-29 13:24 | CM.DANOTE ---
Initial Discharge Plan Assessment Note Case received, EMR reviewed and met with patient. Introduced self and role. 66 year old, alert and oriented female admitted yesterday to care of hospitalist team. PCP: AIDAN Rendon (under Dr Alden Trujillo) Payer: [facility], Medicare A only Patient was admitted yesterday with a reported episode at home of feeling like she was drunk and unsteady on feet. She apparently had a TIA/CVA a few years ago. She lives in [place] and has a helpful son Maddy ([phone]) and Chaudhari. She also has a roommate. 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 She has had PT/OT/ST assessments done today. She was requesting outpatient PT as she had this with her last TIA/CVA episode. Echo and MRI done today. P: When medically stable, patient desires to return home with prior living arrangement. Care management will continue to follow. Upon discharge she is wanting outpatient PT per therapy notes. Shaila Taveras RN/DAVIDP Discharge Planning/Care Management CM Discharge Assessment Start: 07/29/21 12:53 Freq: Status: Active Protocol: Document 07/29/21 12:54 (Rec: 07/29/21 13:23 [id number]) Discharge Planning Assessment Assigned Physician Office Assistant Shaila Taveras RN/DAVIDP Advance Directives? No History Provided By Patient,Medical Record Prior Living Arrangements House Household Members other Type of transporation used prior to Drives own vehicle admit Independent with ADL's Yes Is patient alert and oriented? Yes Caregiver for Another No Barriers to Discharge No Discharge Plan Home Transportation Arrangement Vinod Castañeda ([phone]) will provide transport home. Referrals Initiated None needed Whiteboard Updated in Patient Room with Yes name and ext. # of Physician Office Assistant Review Status In Process Next Review Type Continued Stay Review
--- NOTE | 2021-07-29 17:04 | P.DS_ITS ---
History of Present Illness History of Present Illness Date Patient Seen: 07/29/21 Chief complaint: Feels drunk, dry mouth, trouble walking Narrative: 66-year-old with significant history of hypertension and hyperlipidemia and TIA started having unsteady gait at around 7:00 p.m. today, unable to walk properly, was assessed by her room at around 8:00 p.m. and brought to the ER for further evaluation.? Patient says that she started feeling drunk and felt very unsteady while she is walking, just sat on the sofa did not moved to her roommate came.? When she tried to get up and walk again felt drunk, brought by her roommate to the ER.? In the ER on examination even though NIH score was 0, when ER physician and I try to make her stand, she was swaying to her right side.? She denies any other neurological symptoms.? She denies any headache, nausea, dizziness, double vision, blurry vision, spinning of the room, tremors, speech difficulties.? Her roommate did say that at around 8:00 p.m. she might had some slurred speech but her speech here in the ER seems to be normal and very reasonable conversation.? Extensive cerebellar function testing performed in the ER did not show any carmelo arent deficits. After discussion with the ER physician, the restored to the tele Neurology for further recommendations.? After further discussion with the tele Neurology, proceeded with no further intervention at this time other than overnight monitoring, tele, MRI, echocardiogram.? Patient is asymptomatic at the time I further evaluated in the ER before the transfer to medical floor.? She was feeling hungry, a bedside swallow evaluation did not show any apparent deficits. Discharge Providers Provider Date of admission: 07/28/21 23:25 Discharge Date: 07/29/21 Primary care physician: Alden Trujillo MD Consults: 07/28/21 23:40 Consult to Discharge Planning Routine Comment: Consult to Occupational Therapy Evaluate & Treat Comment: Physician Instructions: Evaluate and treat Consult to Physical Therapy Evaluate & Treat Comment: Physician Instructions: Evaluate and Treat Consult to Speech Therapy Evaluate & Treat Comment: Physician Instructions: Evaluate and treat Discharge provider: Karon Whittaker MD Summary Hospital Course Discharge Diagnosis: 1. Probable benign positional vertigo 2. History of CVA 3. Hypertension 4. Hyperlipidemia 5. Obesity 6. Nocturnal hypoxemia 7. Obstructive sleep apnea Hospital Course: The patient is a 66-year-old female who was admitted to the hospital with a chief complaint of dizziness. She reported having unsteady gait and like the room was spinning. In the ER she felt ?drunk and unsteady. When she tried to get up she felt very unsteady when was brought to the emergency room for evaluation. Her NIH score in the ER was negative. Her ER workup was negative. The patient underwent a head MRI which showed no evidence of acute ischemic injury. She also had a cardiac echo. Showed an ejection fraction of 60 65%, no focal wall motion abnormalities, left ventricular systolic function was normal. Both atria were normal in size. There was no evidence of interatrial septal defect. There was no interatrial shunt. The patient had no further dizziness, symptoms had resolved. It was suspected that this may reflect benign positional vertigo. This was discussed with the patient. She will follow-up with her primary care provider and if she develops recurrent symptoms would refer her to vestibular training. In addition the patient complained of some chest palpitations initially. She was asked to follow-up with her PCP to discuss the possibility of an event/a ZIO patch to determine if she is having intermittent arrhythmia as. Patient expressed understanding was agreeable to discharge home. Status at Discharge Cognitive/behavioral status at discharge: oriented Functional status at discharge: independent ambulation Overall status at discharge: patient is progressing back to baseline Exam Vital Signs (past 8 hours): Oxygen Delivery Method Room Air Oxygen Flow Rate 0 Narrative Exam Narrative: Pleasant female in no acute distress Resp Other: Lungs clear to auscultation Cardio Other: Cardiac exam regular rate and rhythm normal S1-S2 GI Other: Abdomen soft and nontender Neuro Other: Neuro exam is nonfocal, no evidence of nystagmus, no evidence of cerebellar abnormality, no dysmetria noted Objective Labs Result Diagrams: 07/28/21 21:38 07/28/21 21:38 Labs: Laboratory Results - last 24 hr 07/28/21 07/28/21 07/28/21 21:38 21:38 21:38 WBC 5.5 RBC 4.22 Hgb 13.1 Hct 37.5 MCV 88.9 MCH 31.0 MCHC 34.8 RDW 13.1 Plt Count 249 Neut % (Auto) 52.6 Lymph % (Auto) 31.2 [place] % (Auto) 10.7 Eos % (Auto) 4.3 H Baso % (Auto) 1.2 Neut # (Auto) 2900 Lymph # (Auto) 1700 [place] # (Auto) 600 Eos # (Auto) 200 Baso # (Auto) 100 PT INR APTT Sodium 138 Potassium 3.3 L Chloride 102 Carbon Dioxide 31 BUN 18 H Creatinine 0.75 Estimated GFR > 60 BUN/Creatinine Ratio 24.0 H Glucose 113 H Calcium 9.3 Total Creatine Kinase CK-MB (CK-2) CK-MB (CK-2) Rel Index Troponin I Ethyl Alcohol < 10 SARS-CoV-2 (PCR) 07/28/21 07/28/21 07/28/21 21:38 21:38 23:12 WBC RBC Hgb Hct MCV MCH MCHC RDW Plt Count Neut % (Auto) Lymph % (Auto) [place] % (Auto) Eos % (Auto) Baso % (Auto) Neut # (Auto) Lymph # (Auto) [place] # (Auto) Eos # (Auto) Baso # (Auto) PT 10.8 INR 1.0 APTT 36 Sodium Potassium Chloride Carbon Dioxide BUN Creatinine Estimated GFR BUN/Creatinine Ratio Glucose Calcium Total Creatine Kinase 115 CK-MB (CK-2) 1.62 CK-MB (CK-2) Rel Index 1.4 L Troponin I < 0.012 Ethyl Alcohol SARS-CoV-2 (PCR) [facility] Medical History Bradycardia CVA (cerebrovascular accident) Hyperlipidemia Hypertension Nocturnal hypoxemia (~04/2020) Obesity (BMI 30-39.9) (Unknown) Obstructive sleep apnea, adult (~05/2020) Surgical History H/O partial thyroidectomy Hx of tonsillectomy Family History Mother Post-menopausal Breast cancer Sister Melanoma Social History household members: other Smoking Status: Former smoker alcohol intake: current Discharge Assessment & Plan Assessment and Plan Assessment: Probable benign positional vertigo 2. History of CVA 3. Hypertension 4. Hyperlipidemia 5. Obesity 6. Nocturnal hypoxemia 7. Obstructive sleep apnea Plan of Treatment: Follow-up with her PCP next week Discharge Plan Discharge Plan Patient Disposition: Home Discharge orders & Medications Prescriptions: Continued clopidogrel 75 mg tablet 75 mg PO DAILY metoprolol succinate 25 mg tablet extended release 24 hr 12.5 mg PO DAILY Label Comments: take 1/2 tablet by mouth once daily rosuvastatin 20 mg tablet 20 mg PO DAILY Qty: 30 0RF losartan-hydrochlorothiazide 100-25 mg tablet 1 tab PO DAILY Qty: 30 0RF cholecalciferol (vitamin D3) 125 mcg (5,000 unit) capsule 125 mcg PO DAILY turmeric root extract 500 mg capsule 1,500 mg PO DAILY krill oil 35mg PO Follow up/Referrals: Alden Trujillo MD [Primary Care Provider] - Karolyn Trevino PA-C [Non-Staff] - Karolyn Trevino FNP-C [Non-Staff] - Discharge Health Status Multidrug resistant organism: No MDRO Diet/Activity/Treatments Diet: Low-sodium and Low-cholesterol Discharge Data Primary Care Provider: Alden Trujillo Attending Provider: Tyrese Porter VTE Deep Vein Thrombosis/Pulmonary Embolism Present on Admission: No
== END 2021-07-29 15:31 | disposition home or self-care (01) ==
LOC: ED 23:21 → AC 23:25
PROVIDERS: Admitting Provider Family Medicine; Emergency Provider Emergency Medicine; Family Provider Internal Medicine; PCP Family Medicine; Referring Provider Emergency Medicine; Visit Provider Family Medicine
DX: R47.81 Slurred speech (principal); R27.0 Ataxia, unspecified; R00.1 Bradycardia, unspecified; R53.1 Weakness; R09.02 Hypoxemia; R29.700 NIHSS score 0; G47.33 Obstructive sleep apnea (adult) (pediatric); I10 Essential (primary) hypertension; E78.5 Hyperlipidemia, unspecified; E66.9 Obesity, unspecified; Z86.73 Personal history of transient ischemic attack (TIA), and cerebral infarction without residual deficits; Z20.822 Contact with and (suspected) exposure to COVID-19
CPT/HCPCS: 36415; 70450; 70496; 70498; 70551; 80048; 80320; 82550; 82553; 82962; 84484; 85025; 85610; 85730; 87635; 92522; 93005; 93010; 93306; 97161; 97165; 99284; C9803; G0378; Q9967

== ENCOUNTER → 2021-12-18 09:08 | Outpatient (CLI) | payer OTHER, SELFPAY ==
[2021-12-18 11:29] LABS: COVID19 -Nasal RAPID Negative (Negative)
== END ==
PROVIDERS: Family Provider Internal Medicine; PCP Internal Medicine; Visit Provider Surgery
DX: Z20.822 Contact with and (suspected) exposure to COVID-19 (principal); Z01.812 Encounter for preprocedural laboratory examination
CPT/HCPCS: 87635; C9803

== ENCOUNTER 2021-12-19 08:50 | Day surgery (SDC) | payer OTHER, SELFPAY ==
[2021-12-19] VITALS (9 sets, daily range): BP systolic 99–125; BP diastolic 53–78; PULSE 50–61; RESP 10–16; TEMP 36.1–36.9; O2SAT 95–100
--- NOTE | 2021-12-19 | PATH_ITS ---
[facility] Accession Number: [id number] . 01 Material submitted: . PART A: sigmoid colon - SIGMOID PART B: colon - DESCENDING COLON . 01 Clinical history: . [facility] [place] MALIGNANT NEOPLASM PERSONAL HISTORY OF COLONIC POLYPS . 01 Diagnosis: A. Sigmoid Colon Polyp, Biopsy: Tubular adenoma. . B. Descending Colon Polyp, Biopsy: Tubular adenoma. . MRV 12/25/2021 1542 Local . 01 Electronically signed: . Marjan Sanchez MD, Pathologist NPI- [id number] . 01 Gross description: . Part A: SIGMOID: Received in formalin is 1 fragment(s) of scott, soft tissue measuring 0.4 x 0.3 x 0.2 cm submitted entirely in 1 cassette(s) Part B: DESCENDING COLON: Received in formalin is 1 fragment(s) of scott, soft tissue measuring 0.5 x 0.3 x 0.3 cm submitted entirely in 1 cassette(s) /CPE 12/21/2021 0713 Local . 01 Pathologist provided ICD-10: D12.5, D12.4 . 01 CPT . 990549, 179211 Specimen Comment: A courtesy copy of this report has been sent to [phone] Performed at: 01 [facility] [address] [place] [address] [address], [place], [place] [id number] MD Jose Alejandro Kincaid MD Phone: [phone]
--- NOTE | 2021-12-19 09:29 | PM.HP.1 ---
History of Present Illness History of Present Illness Date Patient Seen: 12/19/21 Time Patient Seen: 09:29 Chief complaint: SDC Narrative: The patient presents for colorectal screening. She had previous colonoscopy approximately 5 years ago significant for benign polyps. No personal or family history of colon cancer. On further history denies any recent gastrointestinal symptoms. No nausea, vomiting, abdominal pain, loss of appetite, unexplained weight loss, change in bowel habits, diarrhea, constipation, melena, hematochezia, or bright red blood per rectum. Patient History Medical History Bradycardia CVA (cerebrovascular accident) Hyperlipidemia Hypertension Nocturnal hypoxemia (~04/2020) Obesity (BMI 30-39.9) (Unknown) Obstructive sleep apnea, adult (~05/2020) Surgical History H/O partial thyroidectomy Hx of tonsillectomy Family & Social History Family History Mother Post-menopausal Breast cancer Sister Melanoma Social History: household members other Tobacco & Substance use: Tobacco type cigarettes Smoking Status Former smoker alcohol intake current alcohol intake frequency a few times a month Substance Use Type does not use Meds Home Medications and Allergies Home Medications Medication Instructions Recorded Confirmed Type clopidogrel 75 mg tablet 75 mg PO DAILY 03/03/20 07/03/21 History losartan 100 1 tab PO DAILY #30 tabs 03/03/20 07/03/21 Rx mg-hydrochlorothiazide 25 mg tablet metoprolol succinate 25 mg 12.5 mg PO DAILY 03/03/20 07/03/21 History tablet,extended release 24 hr rosuvastatin 20 mg tablet 20 mg PO DAILY #30 tabs 03/03/20 07/03/21 Rx cholecalciferol (vitamin D3) 125 125 mcg PO DAILY 07/03/21 07/03/21 History mcg (5,000 unit) capsule krill oil 35mg PO 07/03/21 History turmeric root extract 500 mg 1,500 mg PO DAILY 07/03/21 07/03/21 History capsule Allergies Allergy/AdvReac Type Severity Reaction Status Date / Time No Known Drug Allergies Allergy Verified 12/19/21 09:27 Exam Narrative Exam Narrative: General adult woman alert oriented no acute distress Abdomen soft nontender nondistended Assessment & Plan Assessment and plan (1) Personal history of colonic polyps: Status: Acute Assessment & Plan narrative: The patient requires colorectal screening and colonoscopy is recommended. Technical details were discussed. Risks, benefits, alternatives explained. Risks including but not limited to myocardial infarction, aspiration, bleeding, pain, missed lesion, incomplete examination, need for further radiographic studies, colonic perforation, and need for major abdominal surgery were discussed. All questions were answered to their satisfaction, and they are in agreement with this plan. Time Spent With Patient Critical Care time: I spent a total of [] minutes of critical care time on this patient's care today; this time is exclusive of procedural time.
[2021-12-19] MEDS: LACTATED RINGERS 1,000 ML 200 ML IV (09:54)
--- NOTE | 2021-12-19 10:12 | PM.OP.COLON ---
Operative Date/Time/Diagnoses Date of procedure: 12/19/21 Time of procedure: 10:12 Pre-op diagnosis: Personal history of colonic polyps Post-op diagnosis: same Procedure & Clinicians Study performed: Colonoscopy and polypectomy Same procedure as scheduled: Yes Indications: Personal history of colonic polyps Surgeon: Julio Hendricks Procedure Notes Procedure in detail: The history and physical was performed/updated and the patient is ASA class is 2. The procedure was discussed in detail with the patient. Potential risks complications including infection, bleeding, missed diagnosis, perforation, need for surgery, and were explained. Their questions were answered and informed consent was obtained. Patient was brought to the procedure room and placed standard monitoring equipment. The patient's vital signs were monitored continuously throughout the entire procedure. Prior to starting time-out was performed. The patient was placed in the left lateral recumbent position. Procedural sedation was administered by anesthesia. Examination began with a thorough inspection of the perianal area there was no evidence of fissures, fistulae, external hemorrhoids or cutaneous malignancy. The colonoscopy scope was then placed into the anal canal and was advanced to the cecum, which was identified by the ileocecal valve, the appendiceal orifice and the confluence of the taenia. The scope was then slowly withdrawn examining colon thoroughly in all directions, irrigating it of any residual stool. FINDINGS 1. Sigmoid-5 mm polyp removed with cold snare 2. Descending colon-5 mm polyp removed with cold snare 3. Internal hemorrhoids The patient tolerated the procedure well. They will be discharged once criteria are met. The prep was of good/excellent quality. The withdrawl time was 6 minutes. Specimen(s): other (Descending and sigmoid colonic polyps) Complications: none Impression: Colonic polyps Post-procedure Recommendations: Will call with biopsy results Disposition: same day surgery
== END 2021-12-19 11:01 | disposition home or self-care (01) ==
PROVIDERS: Family Provider Internal Medicine; PCP Internal Medicine; Referring Provider Surgery; Visit Provider Surgery
PROC: 0DJD8ZZ Inspection of Lower Intestinal Tract, Via Natural or Artificial Opening Endoscopic (ICD-10-PCS; CPT 45378; principal; 2021-12-19 10:00)
DX: Z12.11 Encounter for screening for malignant neoplasm of colon (principal); Z86.010 Personal history of colon polyps; G47.33 Obstructive sleep apnea (adult) (pediatric); I10 Essential (primary) hypertension; Z86.73 Personal history of transient ischemic attack (TIA), and cerebral infarction without residual deficits; K64.8 Other hemorrhoids; D12.5 Benign neoplasm of sigmoid colon; D12.4 Benign neoplasm of descending colon
CPT/HCPCS: 45385; J3010

== ENCOUNTER → 2022-07-25 14:16 | Outpatient (CLI) | payer OTHER, SELFPAY ==
--- NOTE | 2022-07-25 | DI.US.S_ITS ---
PROCEDURE: US THYROID INDICATIONS: NONTOXIC MULTINODULAR GOITER TECHNIQUE: Real-time scanning was performed of the thyroid gland, with image documentation. COMPARISON: [facility], US, US THYROID, 02/03/2021, 15:30. FINDINGS: Right: Right thyroid lobe is surgically absent. Left: Thyroid lobe measures 5.8 x 2.4 x 3.1 cm, and is heterogeneous in echotexture. Isthmus: 4.1 mm thick. Nodule number: 1 Location: Mid pole of left thyroid lobe Size: 2.3 x 2 x 1.7 cm, previously 2.3 x 1.9 x 1.6 cm. Composition: Solid Echogenicity: Hyperechoic Shape: Wider than tall Margins: Smooth Echogenic foci: None Total points: 3 ACR TI-RADS category: mildly suspicious. Nodule number: 2 Location: Lower pole left thyroid lobe Size: 1.1 x 1 x 0.9 cm, previously 0.9 x 0.8 x 0.6 cm. Composition: Solid Echogenicity: Hyperechoic Shape: Wider than tall Margins: Smooth Echogenic foci: None Total points: 3 ACR TI-RADS category: Mildly suspicious IMPRESSION: 1. Patient's known mildly suspicious nodules in left thyroid lobe are not significantly changed. Continued ultrasound follow-up is recommended. 2. Prior right thyroidectomy, no evidence of recurrence. ACR TI-RADS definitions and recommendations: TI-RADS 1 (benign): 0 points. FNA not needed. TI-RADS 2 (not suspicious): 2 points. FNA not needed. TI-RADS 3 (mildly suspicious): 3 points. * FNA if 2.5 cm or larger, follow up if 1.5 cm or larger (at 1, 3, and 5 years). TI-RADS 4 (moderately suspicious): 4-6 points. * FNA if 1.5 cm or larger, follow up if 1 cm or larger (at 1, 2, 3, and 5 years). TI-RADS 5 (highly suspicious): 7 points or more. * FNA if 1 cm or larger, follow up if 0.5 cm or larger (every year for 5 years). Dictated by: Tk Evans M.D. on 07/25/2022 at 16:30 Approved by: Tk Evans M.D. on 07/25/2022 at 16:33
--- NOTE | 2022-07-25 | DI.MG.S_ITS ---
BILATERAL DIGITAL SCREENING MAMMOGRAM 3D/2D WITH CAD: 07/25/2022 CLINICAL: Routine screening. Family history of breast cancer. Comparison is made to exams dated: 02/03/2021 mammogram, 08/03/2016 mammogram, and 12/27/2006 mammogram - [facility]. Both breasts are heterogeneously dense, which may obscure small masses (category c / 51-75% glandular tissue). Current study was also evaluated with a Computer Aided Detection (CAD) system. No significant masses, calcifications, or other findings are seen in either breast. There has been no significant interval change. IMPRESSION: NEGATIVE There is no mammographic evidence of malignancy. A 1 year screening mammogram is recommended. Based on Tyrer-Cuzick model (a risk assessment model), the patient's lifetime risk is 21.9% and her 10 year risk is 12.0%. If a patient has an elevated risk, a more comprehensive evaluation should be considered and/or a referral to a genetic counselor. The [place] [employer], [place] [employer], and NCCN Guidelines advise the consideration of Breast MRI as an adjunct to screening mammography in patients whose Lifetime risk to develop breast cancer is 20% or higher. This exam was interpreted at Station ID: [id number]. NOTE: For mammograms, a report in lay terms will be sent to the patient. Approximately 15% of breast malignancies will not be visualized mammographically. In the management of a palpable breast mass, a negative mammogram must not discourage biopsy of a clinically suspicious lesion. Electronically Signed By: Didier estrada/rodríguez:07/25/2022 14:41:06 letter sent: Normal Exam ACR BI-RADS Category 1: Negative 3341F
--- NOTE | 2022-07-25 | DI.RAD.S_ITS ---
Bone Density Report Name: SHAHBAZ RESTREPO Age: 67 Sex: Female Ethnicity: White Date of : 1955 Indication: postmenopausal; screening for osteoporosis; Referring Provider: RAJEEV ROWLAND Study: Bone densitometry was performed. Exam Date: July 25, 2022 Accession number: [id number] Bone Density: Region BMD T-score Z-score Classification AP Spine(L1, L3, L4) 1.341 2.6 4.5 Normal Femoral Neck (Left) 0.894 0.4 2.0 Normal Total Hip (Left) 1.076 1.1 2.4 Normal Femoral Neck (Right) 0.960 1.0 2.6 Normal Total Hip (Right) 1.152 1.7 3.1 Normal Total Hip Mean 1.114 1.4 2.8 Normal World Health Organization criteria for BMD impression classify patients as: Normal (T-score at or above -1.0), Osteopenia (T-score between -1.0 and -2.5), or Osteoporosis (T-score at or below -2.5). 10-year Fracture Risk: FRAX not reported because: All T-scores for Spine Total, Hip Total, Femoral Neck at or above -1.0 Previous Exams: -- Region Exam Age BMD T-score BMD Change BMD Change Date g/cm2 vs Baseline vs Previous -- AP Spine (L1,L3-L4) 07/25/2022 67 1.341 2.6 -0.012 (-0.9%)# -0.012 (-0.9%)# 08/03/2016 61 1.354 2.7 Total Hip(Left) 07/25/2022 67 1.076 1.1 -0.046 (-4.1%)# -0.046 (-4.1%)# 08/03/2016 61 1.123 1.5 Total Hip(Right) 07/25/2022 67 1.152 1.7 -0.023 (-2.0%)# -0.023 (-2.0%)# 08/03/2016 61 1.175 1.9 -- *Denotes significance at 95% confidence level, LSC for AP Spine = 0.022 g/cm2, LSC for Total Hip = 0.027 g/cm2 # Denotes dissimilar scan types or analysis methods Impression: The patient has normal bone mass. No significant bone loss was observed. Discussion: BONE DENSITY IS ABOVE THE MINIMUM DESIRABLE LEVEL AT ALL SKELETAL SITES TESTED. This patient's bone mineral density is above the minimum desirable level (T-score -1.0 or better) at all sites measured. The patient should follow a healthful lifestyle (good nutrition with adequate calcium and vitamin D, and appropriate weight-bearing exercise). Follow-Up: Consider repeating this study in 5 years or sooner if there is some new clinical indication. Reported by: CARSON DURHAM MD on 07/25/2022 3:01:00 PM.
== END ==
PROVIDERS: Family Provider Internal Medicine; PCP Internal Medicine; Referring Provider Nurse Practitioner Family; Visit Provider Physician Assistant
DX: Z12.31 Encounter for screening mammogram for malignant neoplasm of breast (principal); Z80.3 Family history of malignant neoplasm of breast; E04.2 Nontoxic multinodular goiter; Z13.820 Encounter for screening for osteoporosis; Z78.0 Asymptomatic menopausal state
CPT/HCPCS: 76536; 77063; 77067; 77080

== ENCOUNTER 2022-09-21 15:22 | Emergency (ER) | payer OTHER, SELFPAY ==
[2022-09-21 15:25] VITALS: BP 195/89; PULSE 63; RESP 18; TEMP 36.8; O2SAT 97; BMI 34.5
--- NOTE | 2022-09-21 15:35 | DI.RAD.S_ITS ---
PROCEDURE: XR KNEE LT 3V INDICATIONS: Foot pinned fell backwards. Knee popped, with pain TECHNIQUE: 3 views of the knee were acquired. COMPARISON: None. FINDINGS: Bones: No fractures or dislocations. No suspicious bony lesions. Soft tissues: Small knee joint effusion. No suspicious soft tissue calcifications. IMPRESSION: 1 No acute osseous abnormality. If clinical symptoms persist or clinical suspicion for pathology is high, a repeat examination in 7-10 days, or advanced imaging such as CT or MRI is suggested for further evaluation. 2. Small knee joint effusion. Dictated by: Ant Syed M.D. on 09/21/2022 at 17:13 Approved by: Ant Syed M.D. on 09/21/2022 at 17:13
--- NOTE | 2022-09-21 15:42 | ED_ITS ---
HPI - Extremity Injury (Lower) <Leilani Hernandez PA-C - Last Filed: 09/21/22 17:45> General Chief Complaint: Extremity Injury, Lower Stated Complaint: Knee inj Time Seen by Provider: 09/21/22 15:35 Source: patient and family Mode of arrival: Ambulatory History of Present Illness HPI Narrative: Patient is a 67-year-old female who presents with left knee pain. 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 She did not hit her head or lose consciousness. The pain is posterior in the popliteal fossa. She is unable to bear weight due to pain. She denies a history of surgery on that knee. She is not taken any pain medication or tried any therapy for this pain. She reports a history of stroke currently takes a beta-jack, statin, and Plavix. Related Data Home Medications Medication Instructions Recorded Confirmed clopidogrel 75 mg tablet (Plavix) 75 mg PO DAILY 03/03/20 12/19/21 metoprolol succinate 25 mg 12.5 mg PO DAILY 03/03/20 12/19/21 tablet,extended release 24 hr cholecalciferol (vitamin D3) 125 125 mcg PO DAILY 07/03/21 12/19/21 mcg (5,000 unit) capsule krill oil 35mg See Protocol PO DAILY 07/03/21 12/19/21 turmeric root extract 500 mg 1,500 mg PO DAILY 07/03/21 12/19/21 capsule Previous Rx's Medication Instructions Recorded losartan 100 1 tab PO DAILY #30 tabs 03/03/20 mg-hydrochlorothiazide 25 mg tablet rosuvastatin 20 mg tablet 20 mg PO DAILY #30 tabs 03/03/20 oxycodone 5 mg tablet 5 mg PO BID PRN pain (scale score 09/21/22 7-10) #10 tabs Allergies Allergy/AdvReac Type Severity Reaction Status Date / Time No Known Drug Allergies Allergy Verified 12/19/21 09:27 Review of Systems <Leilani Hernandez PA-C - Last Filed: 09/21/22 17:45> Review of Systems ROS Unobtainable: All systems reviewed & are unremarkable except as noted in HPI and below Patient History <Leilani Hernandez PA-C - Last Filed: 09/21/22 17:45> Medical History Bradycardia CVA (cerebrovascular accident) Hyperlipidemia Hypertension Nocturnal hypoxemia (~04/2020) Obesity (BMI 30-39.9) (Unknown) Obstructive sleep apnea, adult (~05/2020) Surgical History H/O partial thyroidectomy Hx of tonsillectomy Family History Mother Post-menopausal Breast cancer Sister Melanoma Social History household members: other Smoking Status: Former smoker alcohol intake: current Smoking Status: Former smoker alcohol intake frequency: a few times a month Substance Use Type: does not use Exam <Leilani Hernandez PA-C - Last Filed: 09/21/22 17:45> Narrative Exam Narrative: GENERAL: 67 year old patient appears stated age. Well-developed patient, in mild distress. NEURO: AOx3. CARDIOVASCULAR: No distress or increased work of breathing EXTREMITIES: No tenderness to palpation of the patella, or along medial or lateral joint lines of the left knee. Significant pain with palpation of the posterior popliteal fossa. Pain with extension of the leg SKIN: No rash or erythema of visible areas Initial Vital Signs Initial Vital Signs: Vital Signs Temperature 98.2 F 09/21/22 15:25 Pulse Rate 63 09/21/22 15:25 Respiratory Rate 18 09/21/22 15:25 Blood Pressure 195/89 H 09/21/22 15:25 Pulse Oximetry 97 09/21/22 15:25 Oxygen Delivery Method Room Air 09/21/22 15:25 <Ramo Ramon DO - Last Filed: 09/22/22 06:56> Initial Vital Signs Initial Vital Signs: Vital Signs Temperature 98.2 F 09/21/22 15:25 Pulse Rate 63 09/21/22 15:25 Respiratory Rate 18 09/21/22 15:25 Blood Pressure 195/89 H 09/21/22 15:25 Pulse Oximetry 97 09/21/22 15:25 Oxygen Delivery Method Room Air 09/21/22 15:25 Course <Leilani Hernandez PA-C - Last Filed: 09/21/22 17:45> Orders Ordered: Discontinued Medications Acetaminophen (Acetaminophen 325 Mg Tablet) 975 mg PO NOW ONE Stop: 09/21/22 16:21 Last Admin: 09/21/22 16:28 Dose: 975 mg Documented By: RB Ibuprofen (Ibuprofen 400 Mg Tablet) 800 mg PO NOW ONE Stop: 09/21/22 16:21 Last Admin: 09/21/22 16:28 Dose: 800 mg Documented By: RB Vital Signs Vital signs: Vital Signs - 8 hr 09/21/22 15:25 09/21/22 17:07 Temperature 98.2 F Pulse Rate 63 56 L Respiratory Rate 18 17 Blood Pressure 195/89 H 164/70 H Pulse Oximetry 97 99 Oxygen Delivery Method Room Air <Ramo Ramon DO - Last Filed: 09/22/22 06:56> Orders Ordered: Discontinued Medications Acetaminophen (Acetaminophen 325 Mg Tablet) 975 mg PO NOW ONE Stop: 09/21/22 16:21 Last Admin: 09/21/22 16:28 Dose: 975 mg Documented By: RB Ibuprofen (Ibuprofen 400 Mg Tablet) 800 mg PO NOW ONE Stop: 09/21/22 16:21 Last Admin: 09/21/22 16:28 Dose: 800 mg Documented By: RB Vital Signs Vital signs: Vital Signs - 8 hr 09/21/22 15:25 09/21/22 17:07 Temperature 98.2 F Pulse Rate 63 56 L Respiratory Rate 18 17 Blood Pressure 195/89 H 164/70 H Pulse Oximetry 97 99 Oxygen Delivery Method Room Air MDM - Extremity Injury (Lower) <Leilani Hernandez PA-C - Last Filed: 09/21/22 17:45> ECG Data Interpretation: PROCEDURE:? XR KNEE LT 3V ? INDICATIONS:? Foot pinned fell backwards. Knee popped, with pain ? TECHNIQUE:? 3 views of the knee were acquired.? ? COMPARISON:? None. ? FINDINGS:? ? Bones:? No fractures or dislocations.? No suspicious bony lesions.? ? Soft tissues:? Small knee joint effusion.? No suspicious soft tissue calcifications.? ? ? IMPRESSION:? ? 1 No acute osseous abnormality.? If clinical symptoms persist or clinical suspicion for pathology is high, a repeat examination in 7-10 days, or advanced imaging such as CT or MRI is suggested for further evaluation. ? 2. Small knee joint effusion.? ? ? Dictated by: Ant Syed M.D. on 09/21/2022 at 17:13 ? ? Approved by: Ant Syed M.D. on 09/21/2022 at 17:13? MDM Narrative Medical decision making narrative: Multiple etiologies for patient's symptoms considered including, but not limited to: Fracture, patellar dislocation, ligamentous injury, meniscus injury. Suspect ligamentous injury given examined history, x-ray without bony abnormality. Pain addressed with ibuprofen and Tylenol while in the emergency room and ice applied. Patient placed in knee immobilizer. Attempted to give crutches but patient decline, stating she has some at home from a family member. Discussed appropriate sizing and crutches to avoid brachial plexus injury. Patient referred to orthopedics for further management of left knee injury. Instructed on RICE. Discussed appropriate use of opiate pain medication for severe pain. Patient's symptoms improved over duration of stay with above-stated therapies. Findings and discharge diagnosis discussed with patient/family followed by verbalization of understanding Return precautions discussed with patient/family whom verbalize understanding of diagnosis and plan Discharge Plan Departure Patient Disposition: Home Clinical Impression: Injury of knee, ligament Instructions: How To Perform RICE (Rest, Ice, Compress, Elevate), DI for Knee Pain Activity Restrictions/Additional Instructions: *You have been diagnosed with left knee ligament injury. You have been given a knee immobilizer from the emergency department to use for comfort, can take off to rest and bathing. You should take ibuprofen 600 mg every 6 hours and can also take Tylenol 1 gram every 8 hours for pain and inflammation. For the next 48 hours, apply ice every 2 hours while awake for 15 minutes to decrease inflammation and pain. Call [facility] on Saturday to schedule ER follow-up. You have been given a small amount of opiate pain medication that is to be used only for severe pain. Do not drink alcohol, drive or operate heavy machinery while taking this medication. *What to do: *Please continue to take your regular medications as directed. [ ] New medication prescriptions sent to your pharmacy: [ ] [x] New medication written as a paper prescription [ ] No new medications given *Please follow up with your primary care provider in 2-3 days, call for an appointment. Let them know you were seen in the Emergency Department and that we ask that you be seen in follow up. We will electronically transmit a record of today's note if your PCP is in our system *If you do not have a primary care provider please contact the [facility] Resource line at [phone]. They will ask some questions about your medical history and help get you set up with a doctor in the community. *Return to Emergency Department if you should have any new, worsening or concerning symptoms, such as [fever greater than 101 F, shaking chills, worsening pain, persistent vomiting or other bothersome symptoms] Prescriptions: New oxycodone 5 mg tablet 5 mg PO BID PRN (Reason: pain (scale score 7-10)) Qty: 10 0RF No Action clopidogrel [Plavix] 75 mg tablet 75 mg PO DAILY metoprolol succinate 25 mg tablet extended release 24 hr 12.5 mg PO DAILY Patient Comments: take 1/2 tablet by mouth once daily rosuvastatin 20 mg tablet 20 mg PO DAILY Qty: 30 0RF losartan-hydrochlorothiazide 100-25 mg tablet 1 tab PO DAILY Qty: 30 0RF cholecalciferol (vitamin D3) 125 mcg (5,000 unit) capsule 125 mcg PO DAILY turmeric root extract 500 mg capsule 1,500 mg PO DAILY krill oil 35mg See Protocol PO DAILY Protocol: Age Greater than 75 Protocol Text: Age less than 75 years, to be administred with initial in subcutaneous dose Referrals: [facility] [Provider Group] Alvarez Howell MD [Primary Care Provider] - Stand Alone Forms: Patient Portal/API <Raom Ramon, - Last Filed: 09/22/22 06:56> Cosign ED Attending Cospeterature Attestation: Dr Ramon Co-Sign Statement: I was available for consultation during this patient's emergency department visit. This chart is signed by myself for administrative purposes only. I did not have direct contact with this patient during this visit. They were seen independently by the APC.
[2022-09-21] MEDS: IBUPROFEN 400 MG TABLET 800 MG PO (16:28)
[2022-09-21] MEDS: ACETAMINOPHEN 325 MG TABLET 975 MG PO (16:28)
[2022-09-21 17:07] VITALS: BP 164/70; PULSE 56; RESP 17; O2SAT 99
[2022-09-21 17:49] VITALS: BP 179/80; PULSE 51; O2SAT 99
== END 2022-09-21 18:10 | disposition home or self-care (01) ==
PROVIDERS: Emergency Provider Physician Assistant; Family Provider Internal Medicine; PCP Internal Medicine
DX: S89.82XA Other specified injuries of left lower leg, initial encounter (principal); W18.30XA Fall on same level, unspecified, initial encounter
CPT/HCPCS: 73562; 99283

== ENCOUNTER → 2023-11-11 07:59 | Outpatient (CLI) | payer MEDICARE, OTHER, SELFPAY ==
--- NOTE | 2023-11-11 | DI.US.S_ITS ---
PROCEDURE: US THYROID INDICATIONS: Nontoxic multinodular goiter TECHNIQUE: Real-time scanning was performed of the thyroid gland, with image documentation. COMPARISON: [facility], US, US THYROID, 07/25/2022, 15:31. FINDINGS: Thyroid: Status post right thyroidectomy. No evidence for tumor recurrence. Left lobe measures 5.5 x 2.8 x 2.7 cm. Echotexture is homogeneous. Redemonstration of 2 thyroid nodules on the left. Nodule number: 1 Location: Left mid thyroid lobe Size: 2.5 x 2.2 x 1.9 cm. (Previously 2.3 x 2.0 x 1.7 cm) Composition: Solid Echogenicity: Hyperechoic Shape: wider than tall. Margins: Smooth Echogenic foci: None Total points: 3 ACR TI-RADS category: Mildly suspicious Nodule number: 2 Location: Left inferior Size: 1.3 x 1.3 x 1.1 cm, previously1.1 x 1.0 x 0.9. Composition: Echogenicity: Solid Shape: wider than tall. Margins: Smooth Echogenic foci: None Total points: 3 ACR TI-RADS category: Mildly suspicious IMPRESSION: 1. Mildly suspicious left mid thyroid lobe nodule now measuring up to 2.5 cm. This has not changed significantly when accounting for slight differences in imaging technique and measurement. Of note, this nodule had already been biopsied. It appears similar in imaging characteristics. Recommend continued annual surveillance. 2. Mildly suspicious left inferior thyroid lobe nodule which has remained stable. Recommend follow-up ultrasound in 1 year. ACR TI-RADS definitions and recommendations: TI-RADS 1 (benign): 0 points. FNA not needed. TI-RADS 2 (not suspicious): 2 points. FNA not needed. TI-RADS 3 (mildly suspicious): 3 points. * FNA if 2.5 cm or larger, follow up if 1.5 cm or larger (at 1, 3, and 5 years). TI-RADS 4 (moderately suspicious): 4-6 points. * FNA if 1.5 cm or larger, follow up if 1 cm or larger (at 1, 2, 3, and 5 years). TI-RADS 5 (highly suspicious): 7 points or more. * FNA if 1 cm or larger, follow up if 0.5 cm or larger (every year for 5 years). Dictated by: Ron Mata M.D. on 11/11/2023 at 17:10 Approved by: Ron Mata M.D. on 11/11/2023 at 17:18
== END ==
LOC: US 08:00
PROVIDERS: Family Provider Internal Medicine; PCP Internal Medicine; Referring Provider Internal Medicine; Visit Provider Internal Medicine
DX: E04.2 Nontoxic multinodular goiter (principal)
CPT/HCPCS: 76536